=== PATIENT | female | born 1955 | race Caucasian/White ===

== ENCOUNTER 2020-09-15 13:36 | Outpatient (REF) | payer MEDICARE, MEDICAID, SELFPAY ==
--- NOTE | 2020-09-15 14:18 | XR_ITS ---
EXAMINATION: XR KNEE, RIGHT CLINICAL INFORMATION: Right knee pain. COMPARISON: None TECHNIQUE: A standing AP view the right knee was obtained with a lateral view. FINDINGS: There are mild degenerative changes in the medial and patellofemoral compartments with joint space narrowing and marginal osteophytosis. No fracture or other acute abnormality. No joint effusion is seen. Enthesopathic changes are noted in the superior pole of the patella. XR/XR knee RT 2V IMPRESSION: Mild degenerative changes. No acute abnormality.
== END 2020-09-15 13:37 | disposition home or self-care (01) ==
LOC: HO.XRAY 13:36
PROVIDERS: Absent Provider Family Medicine; PCP Family Medicine; Visit Provider Internal Medicine Cardiovascular Disease
DX: M25.561 Pain in right knee (principal)
CPT/HCPCS: 73560; 93005

== ENCOUNTER → 2020-10-04 10:08 | Outpatient (BNVA) | payer MEDICARE, MEDICAID, SELFPAY | PROVIDERS: PCP Family Medicine; Visit Provider Surgery | DX: Z91.89 Other specified personal risk factors, not elsewhere classified (principal); Z80.3 Family history of malignant neoplasm of breast | CPT/HCPCS: 99212 ==

== ENCOUNTER → 2020-10-06 08:49 | Outpatient (BNV) | payer MEDICARE, BC, MEDICAID, SELFPAY | PROVIDERS: PCP Family Medicine; Visit Provider Internal Medicine Medical Oncology | DX: D05.12 Intraductal carcinoma in situ of left breast (principal) | CPT/HCPCS: 99212; 99213; 99214 ==

== ENCOUNTER → 2020-11-28 08:11 | Outpatient (REF) | payer MEDICARE, MEDICAID, SELFPAY ==
--- NOTE | 2020-11-28 08:30 | CA_ITS ---
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 Normal LV systolic function with pseudonormal filling pattern 2. Mildly dilated left atrium 3. Possibly early aortic stenosis 4. Normal RV systolic pressure 5. No pericardial effusion Findings Procedure Information The patient receives contrast. Left Ventricle The left ventricle was not well visualized. Mildly increased left ventricular cavity size. The visually estimated ejection fraction is between 60-65%. Spectral Doppler is indicative of a pseudonormal filling pattern. E/E prime ratio is between 8 and 15 consistent with indeterminate filling pressures. Right Ventricle The right ventricle was not well visualized. Atria The left atrium is mildly dilated. There is no evidence of interatrial shunt. The right atrium was not well visualized. Aortic Valve The aortic valve was not well visualized. There is no aortic valve regurgitation. Mildly increased gradient across aortic valve, leaflets are not well visualized. Early aortic stenosis cannot be ruled out on this study Mitral Valve The mitral valve was not well visualized. There is trace mitral valve regurgitation. There is no mitral valve stenosis. Pulmonic Valve The pulmonic valve was not well visualized. Tricuspid Valve Likely normal tricuspid valve structure and function. There is mild tricuspid valve regurgitation. The right ventricular systolic pressure is normal. The right ventricular systolic pressure is 31 mmHg. Normal right atrial pressure. There is no evidence of pulmonary hypertension. Great Vessels All visible segments of the aorta are normal in size. The pulmonary artery was not well visualized. Venous The inferior vena cava is normal in size and collapses greater than 50% with inspiration. Pericardium/Pleural There is no evidence of pericardial effusion. Prior Study Comparison Changes noted compared to prior study dated: 12/04/2017. Diastolic filling appears to be pseudo normal Measurements 2D Linear Measurements IVSd: 1.03 0.6-0.9/0.6-1.0 cm LVIDd: 5.71 3.9-5.3/4.2-5.9 cm LVIDs: 3.77 2.0-3.6 cm LVPWd: 1.00 0.7-1.1 cm Ao Root: 2.98 2.1-3.5 cm LV Mass: 289.66 67-162/88-224 g LVOT Diam: 1.99 3.0+(-)1.3 cm Mitral Valve MV Pk E: 1.11 MV PK A: 1.24 MV Decel Time: 310.08 E/A: 0.90 E'Lateral: 0.10 E'Medial: 0.10 Decel Harnett: 3.59 Aortic Valve AoV Pk Miguel: 2.18 AoV Mn Miguel: 1.31 AoV VTI: 0.50 AoV Pk Grad: 18.97 Aov Mn Grad: 8.51 LVOT LVOT Pk Miguel: 1.04 LVOT Mn Miguel: 0.70 LVOT VTI: 0.27 LVOT Pk Grad: 4.31 LVOT Mn Grad: 2.33 LVOT Diam: 1.99 LVOT Area: 3.12 Diastolic Function MV Pk E: 1.11 MV Pk A: 1.24 E/A: 0.90 E'Medial: 0.10 E' Laterial: 0.10 Tricuspid Valve TR Pk Miguel: 2.63 TR Pk Grad: 27.62 RA Press: 3.00 RVSP: 31.00 Great Vessels Aorta Ao Root-2D: 2.98 2.0-3.7 cm Ao Arch: 3.68 Updated in Other Vendor System with Status of Final Chad Rios MD electronically signed on 11/28/2020 4:58:38 PM with status of Final
--- NOTE | 2020-11-28 09:30 | CA_ITS ---
Acquisition Time: 2020-11-28 09:54:22 Total Exercise Time: 00:04:29 Test Indications: PAF Medications: see chart Protocol: JOHN Max HR: 134 BPM 86% of Pred: 155 BPM Max BP: 132/072 mmHG Max Work Load: 6.3 METS Exercise stress test using John protocol. Pt was able to exercise for 4 min 29 sec. METS 6.30 and TAPHR up to 86 %. Pt reports SOB no CP. EKG with occ. PAC's. 1rst degree block. Upsloping ST depressions seen inferiorly. Normotensive response to exercise. Test reviewed with Dr. Rios. Referred By: Chad Rios Overread By: Mariangel Soria NP
--- NOTE | 2020-11-28 11:00 | ECG_ITS ---
Hook-up date: 2020-11-28 09:27:00 Duration: 28:23:00 Test Indications: PAF Medications: 70934 QRS complexes * Ventricular ectopics which represent % of total QRS comp. 13 Supraventricular ectopics which represent <1 % of total QRS comp. * Paced QRS complexs which represent % of total QRS comp. VENTRICULAR ECTOPY * Isolated * Bigeminal Cycles * Couplets * Runs * Beats in Runs * Beats LONGEST at * BPM at :: -- * Beats FASTEST at * BPM at :: -- SUPRAVENTRICULAR ECTOPY 1 Isolated 6 Couplets 0 Runs 0 Beats in Runs * Beats LONGEST at * BPM at :: -- * Beats FASTEST at * BPM at :: -- HEART RATES 34 MIN at 08:57:03 2020-11-29 50 AVG 109 MAX at 09:28:21 2020-11-28 LONGEST RR 1.8640 secs at 09:00:37 2020-11-29 S-T LEVELS Channel 1 - 128 mm at 09:27:00 2020-11-28 - 128 mm at 09:27:00 2020-11-28 Channel 2 - 128 mm at 09:27:00 2020-11-28 - 128 mm at 09:27:00 2020-11-28 Channel 3 - 128 mm at 02:84:61 -- - 128 mm at 02:84:61 Basic rhythm Normal sinus rhythm No long pauses Frequent Sinus bradycardia , 83% of total time hr <60 bpm No sustained Atrial fibrillation Patient did not report any symptoms in the diary Referred By: Chad Rios Overread By: CHAD RIOS MD
== END ==
LOC: HO.CARD 08:11
PROVIDERS: Visit Provider Internal Medicine Cardiovascular Disease
DX: I48.0 Paroxysmal atrial fibrillation (principal)
CPT/HCPCS: 93016; 93017; 93018; 93225; 93226; 93306; Q9957

== ENCOUNTER 2020-11-30 09:52 | Outpatient (REF) | payer MEDICARE, MEDICAID, SELFPAY ==
--- NOTE | ~2020-11-30 | MM_ITS ---
EXAMINATION: MM SCREENING DIGITAL BREAST TOMOSYNTHESIS, BILATERAL CLINICAL INFORMATION: Screening. Asymptomatic. Family history breast cancer, sister. Prior history benign left breast MR guided biopsy 10/18/2017 (Benign breast tissue with usual ductal hyperplasia, microcysts, stromal fibrosis, and apocrine metaplasia). The lifetime risk of breast cancer based on the Tyrer-Cuzick Model is 21.4%. COMPARISON: Mammography: 11/18/2019, 10/01/2018, 09/30/2017, MRI breasts 10/18/2017 TECHNIQUE: Digital breast tomosynthesis is performed in both the craniocaudal and mediolateral oblique views along with computer-aided detection (CAD). Synthesized 2D images are generated from the tomosynthesis. Additional bilateral CC views and additional bilateral MLO views are provided for coverage. FINDINGS: The breasts are heterogeneously dense, which may obscure small masses (ACR BI-RADS breast composition Category c). Parenchymal pattern is similar to prior studies. There is no developing density or interval mass or architectural abnormality. Again, there are scattered bilateral punctate and coarse calcifications. Biopsy clip marker again noted left breast posterior 3:00 position. The axilla and skin contours are unremarkable. MM/MM tomosynthesis screening BI IMPRESSION: No mammographic evidence of malignancy. ASSESSMENT: BI-RADS 2: Benign RECOMMENDATION: 1. Routine annual mammography screening. 2. The lifetime risk of breast cancer based on the Tyrer-Cuzick Model is 21%. Additional annual adjunct screening with breast MRI may be of benefit in women with a risk score of 20% or greater. This patient's information was entered into a reminder system with a target due date for their next mammogram.
== END 2020-11-30 09:53 | disposition home or self-care (01) ==
LOC: HO.MAMMO 09:52
PROVIDERS: Visit Provider Family Medicine
DX: Z12.31 Encounter for screening mammogram for malignant neoplasm of breast (principal)
CPT/HCPCS: 77063; 77067

== ENCOUNTER → 2020-12-05 08:22 | Outpatient (REF) | payer MEDICARE, MEDICAID, SELFPAY ==
--- NOTE | ~2020-12-05 | NM_ITS ---
Myocardial perfusion study Indication: Shortness of breath with abnormal stress test evaluate for myocardial ischemia Technique: The patient was brought in for a Lexiscan perfusion study on 12/05/2020. Patient performed low-level exercise and was injected 0.4 mg of Lexiscan intravenously. Within a minute of injection, 45 mCi of sestamibi was given intravenously. Images were obtained using the SPECT gamma camera interlaced with the gating device. Images were obtained in supine position. Resting perfusion study was performed on 12/06/2020. Patient was administered 45 mCi of sestamibi intravenously at rest. Images were then obtained in supine position. Images obtained with and without CT attenuation. Total DLP 153 mGy-cm. Images were processed with the software and compared side to side in short axis, horizontal long axis and vertical long axis views. Findings: The stress perfusion study showed non attenuated images show absent uptake in the inferoapical wall of the LV myocardium and mildly reduced uptake in the distal lateral wall of the LV myocardium. Attenuation corrected images show normal uptake of radiotracer in all segments of LV myocardium. There is suggestion of left ventricle hypertrophy.. The gated study shows normal LV systolic function with calculated LVEF of 64%. LV cavity is normal in size. The gated study shows normal systolic wall thickening and contraction of segments. Resting study shows no change in perfusion pattern compared to stress perfusion study. Gating at rest reveals normal cyst colic wall motion with ejection fraction at 60%. The findings are consistent with normal myocardial perfusion. NM/NM derrick perf SPECT rest & str Impression: 1. Myocardial perfusion imaging study shows normal myocardial perfusion 2. Gated LVEF is 64% 3. Transient ischemic dilatation not present EKG is nondiagnostic for ischemia
--- NOTE | 2020-12-05 08:28 | CA_ITS ---
Acquisition Time: 2020-12-05 08:42:35 Total Exercise Time: 00:02:00 Test Indications: abn ekg Medications: see chart Protocol: LEXISCAN Max HR: 101 BPM 65% of Pred: 155 BPM Max BP: 138/078 mmHG Max Work Load: 1.6 METS Pharmacological stress test with Lexiscan injection, while walking on treadmill 1 MPH 0% incline for 2 min without anginal symptoms, without arrythmia, with normotensive response to injection, with nondiagnostic EKG for ischemia. Nuclear images pending. Test reviewed with Dr Mcguire. Referred By: Chad Rios Overread By: ALMA MCGEE
== END ==
LOC: HO.CARD 08:22
PROVIDERS: PCP Family Medicine; Visit Provider Internal Medicine Cardiovascular Disease
DX: I48.0 Paroxysmal atrial fibrillation (principal); R00.1 Bradycardia, unspecified; R94.31 Abnormal electrocardiogram [ECG] [EKG]
CPT/HCPCS: 78452; 93017; A9500; J0280; J2785

== ENCOUNTER → 2020-12-08 09:58 | Outpatient (BNVA) | payer MEDICARE, MEDICAID, SELFPAY | PROVIDERS: PCP Family Medicine; Visit Provider Internal Medicine Cardiovascular Disease | DX: I48.0 Paroxysmal atrial fibrillation (principal); I49.5 Sick sinus syndrome; Z79.82 Long term (current) use of aspirin; Z79.899 Other long term (current) drug therapy | CPT/HCPCS: 93005; 99212 ==

== ENCOUNTER 2021-03-17 09:42 | Outpatient (REF) | payer MEDICARE, MEDICAID, SELFPAY ==
[2021-03-17 10:36] LABS: MANUAL DIFF FLAG NO
[2021-03-17 11:01] LABS: Basophils Percent Auto 0.4 % (0-2); Eosinophils Absolute Auto 0.1 X10*3/uL (0.0-0.4); Eosinophils Percent Auto 1.7 % (0-4); Hematocrit 41.8 % (37-47); Hemoglobin 13.6 g/dl (12.0-16.0); Imm Gran Abs Auto 0.02 X10*3/uL (0.00-0.03); Imm Gran Pct Auto 0.4 % (0.0-0.4); Lymphocytes Absolute Auto 1.1 X10*3/uL (1.2-4.9); Lymphocytes Percent Auto 24.7 % (20-40); Mean Corpuscular HGB Conc 32.5 g/dl (31.0-35.0); Mean Corpuscular Hemoglobin 28.8 pg (27.0-33.0); Mean Corpuscular Volume 88.6 fL (80-98); Mean Platelet Volume 10.1 fL (9.4-12.3); Monocytes Absolute Auto 0.3 X10*3/uL (0.1-1.2); Monocytes Percent Auto 7.4 % (2-11); Neutrophils Percent Auto 65.4 % (45-73); Platelet Count 233 X10*3/uL (160-400); Red Blood Count 4.72 X10*6/uL (4.20-5.50); Red Cell Distribution Width 14.5 % (11.0-16.0); White Blood Count 4.6 X10*3/uL (4.8-10.8)
[2021-03-17 11:07] LABS: Estimated Average Glucose 105 mg/dL; Hemoglobin A1c % 5.3 %
[2021-03-17 11:15] LABS: Alanine Aminotransferase 23 U/L (0-31); Alkaline Phosphatase 83 U/L (39-117); Anion Gap 11 (12-20); Aspartate Amino Transferase 16 U/L (5-31); Bilirubin Total 0.5 mg/dL (0.0-1.0); Blood Urea Nitrogen 18 mg/dL (9-16); Calcium 9.5 mg/dL (8.4-10.2); Carbon Dioxide 27 mmol/L (22-29); Chloride 105 mmol/L (96-108); Cholesterol 177 mg/dL; Estimated Glomerular Filt Rate 54; Glucose Random 102 mg/dL (60-115); HDL Cholesterol 73 mg/dL; LDL Cholesterol Calculated 93 mg/dl; Potassium 4.3 mmol/L (3.3-5.1); Sodium 139 mmol/L (135-145); Total Protein 6.2 g/dL (6.5-8.0); Triglycerides 58 mg/dL
[2021-03-17 11:36] LABS: TSH reflex Free T4 1.73 uIU/mL (0.32-4.0); Vitamin D 25-OH Total 72.3 ng/mL (>30)
== END 2021-03-17 09:43 | disposition home or self-care (01) ==
LOC: HO.WFDLDS 09:42
PROVIDERS: Absent Provider Internal Medicine Medical Oncology; Visit Provider Family Medicine
DX: Z00.00 Encounter for general adult medical examination without abnormal findings (principal); R73.01 Impaired fasting glucose; E55.9 Vitamin D deficiency, unspecified; Z91.89 Other specified personal risk factors, not elsewhere classified
CPT/HCPCS: 36415; 80053; 80061; 82306; 83036; 84443; 85025

== ENCOUNTER → 2021-03-24 09:50 | Outpatient (REF) | payer MEDICARE, MEDICAID, SELFPAY ==
--- NOTE | 2021-03-24 14:15 | ECG_ITS ---
Hook-up date: 2021-03-24 10:19:00 Duration: 20:41:00 Test Indications: afib Medications: 01608 QRS complexes * Ventricular ectopics which represent % of total QRS comp. 2666 Supraventricular ectopics which represent 3 % of total QRS comp. * Paced QRS complexs which represent % of total QRS comp. VENTRICULAR ECTOPY * Isolated * Bigeminal Cycles * Couplets * Runs * Beats in Runs * Beats LONGEST at * BPM at :: -- * Beats FASTEST at * BPM at :: -- SUPRAVENTRICULAR ECTOPY 2653 Isolated 4 Couplets 1 Runs 5 Beats in Runs 5 Beats LONGEST at 97 BPM at 22:53:27 2021-03-24 5 Beats FASTEST at 97 BPM at 22:53:27 2021-03-24 HEART RATES 42 MIN at 04:49:28 2021-03-25 56 AVG 94 MAX at 19:17:29 2021-03-24 LONGEST RR 1.4560 secs at 10:51:35 2021-03-24 S-T LEVELS Channel 1 - 128 mm at 10:19:00 2021-03-24 - 128 mm at 10:19:00 2021-03-24 Channel 2 - 128 mm at 10:19:00 2021-03-24 - 128 mm at 10:19:00 2021-03-24 Channel 3 - 128 mm at 02:93:81 -- - 128 mm at 02:93:81 Underlying rhythm is sinus; Average ventricular rate 56/min; range 42-94/min; About 72% of the time, rate <60/min; Frequent Premature atrial complexes (4%); mostly isolated; no significant runs; Irregular heartbeat, palpitations in patient diary correlate with sinus rhythm. Referred By: Chad Rios Overread By: INO JEFFERSON
== END ==
LOC: HO.CARD 09:50
PROVIDERS: PCP Family Medicine; Visit Provider Internal Medicine Cardiovascular Disease
DX: I48.0 Paroxysmal atrial fibrillation (principal)
CPT/HCPCS: 93226

== ENCOUNTER → 2021-04-04 09:22 | Outpatient (BNVA) | payer MEDICARE, MEDICAID, SELFPAY | PROVIDERS: PCP Family Medicine; Referring Provider Family Medicine; Visit Provider Surgery | DX: Z87.42 Personal history of other diseases of the female genital tract (principal); Z80.3 Family history of malignant neoplasm of breast; Z80.0 Family history of malignant neoplasm of digestive organs | CPT/HCPCS: 99212 ==

== ENCOUNTER 2021-04-14 15:47 | Emergency (ER) | payer MEDICARE, MEDICAID, SELFPAY ==
[2021-04-14 16:28] VITALS: BP 139/77; PULSE 73; RESP 20; TEMP 36.4; O2SAT 98; BMI 41.8
[2021-04-14 16:39] LABS: MANUAL DIFF FLAG NO
[2021-04-14 16:41] LABS: Basophils Percent Auto 0.3 % (0-2); Eosinophils Absolute Auto 0.1 X10*3/uL (0.0-0.4); Eosinophils Percent Auto 1.6 % (0-4); Hematocrit 45.6 % (37-47); Hemoglobin 14.8 g/dl (12.0-16.0); Imm Gran Abs Auto 0.02 X10*3/uL (0.00-0.03); Imm Gran Pct Auto 0.3 % (0.0-0.4); Lymphocytes Absolute Auto 1.1 X10*3/uL (1.2-4.9); Lymphocytes Percent Auto 16.9 % (20-40); Mean Corpuscular HGB Conc 32.5 g/dl (31.0-35.0); Mean Corpuscular Hemoglobin 28.9 pg (27.0-33.0); Mean Corpuscular Volume 89.1 fL (80-98); Mean Platelet Volume 9.4 fL (9.4-12.3); Monocytes Absolute Auto 0.5 X10*3/uL (0.1-1.2); Monocytes Percent Auto 8.6 % (2-11); Neutrophils Absolute Auto 4.5 X10*3/uL (2.0-8.3); Neutrophils Percent Auto 72.3 % (45-73); Platelet Count 224 X10*3/uL (160-400); Red Blood Count 5.12 X10*6/uL (4.20-5.50); Red Cell Distribution Width 14.5 % (11.0-16.0); White Blood Count 6.3 X10*3/uL (4.8-10.8)
[2021-04-14 17:01] LABS: COVID-19 Test Negative (Negative); IDNOW Serial# 9DD0AD1C
[2021-04-14 17:05] LABS: Alanine Aminotransferase 20 U/L (0-31); Alkaline Phosphatase 98 U/L (39-117); Anion Gap 13 (12-20); Aspartate Amino Transferase 13 U/L (5-31); Bilirubin Total 0.4 mg/dL (0.0-1.0); Blood Urea Nitrogen 19 mg/dL (9-16); Calcium 9.4 mg/dL (8.4-10.2); Carbon Dioxide 27 mmol/L (22-29); Chloride 106 mmol/L (96-108); Creatinine Clr Calc Pharmacy 53.1; Estimated Glomerular Filt Rate 36; Glucose Random 105 mg/dL (60-115); Potassium 3.9 mmol/L (3.3-5.1); Sodium 142 mmol/L (135-145); Total Protein 6.2 g/dL (6.5-8.0)
[2021-04-14 17:46] VITALS: BP 152/87; PULSE 87; RESP 16; O2SAT 97
--- NOTE | 2021-04-14 19:36 | ED.URI ---
HPI - URI/Sore Throat General Chief Complaint: Upper Respiratory Symptoms Stated Complaint: headache, sore throat Time Seen by Provider: 04/14/21 18:54 Source: patient Mode of arrival: ambulatory Limitations: no limitations History of Present Illness HPI Narrative: 65-year-old female with a past medical history of AFib on Rivaroxaban and flecainide, hypertension, bradycardia, sick sinus syndrome and hypercholesterolemia presenting to the ED with a few days of intermittent headaches, nasal congestion/runny nose, sore throat and a cough. She reports that she came here only for a COVID swab and a rapid strep. She reports she had a rapid negative COVID on although her daughter is a nurse in [place] in the ICU and told her that she may had had a COVID swab to early when her symptoms started therefore she instructed her to get a repeat swab. Patient reports she does not want any blood work any x-rays any imaging at all that she was only here for COVID swab and a rapid strep. She denies any fevers, chills, dizziness, chest pain, shortness of breath, dyspnea on exertion, orthopnea, palpitations, abdominal pain, nausea/vomiting/diarrhea/constipation, dysuria, focal or general weakness, recent travel or sick contacts or any other symptoms complaints or concerns at this time. MD elicited complaint: cough, sore throat, rhinorrhea and nasal congestion Pertinent past history: other (See above) Onset (ago): day(s) (A few days worse today) Consistency: constant and progressively worsening Severity: moderate Description of mucous: clear, watery and yellow Able to tolerate fluids by mouth: Yes Exacerbating factors: nothing Relieving factors: nothing Associated symptoms: denies other symptoms Treatments prior to arrival: none Related Data Previous Rx's Medication Instructions Recorded diltiazem HCl 30 mg tablet 30 mg PO BID 90 Days #180 tab 01/24/21 (Cardizem) flecainide 150 mg tablet 150 mg PO Q12H #180 cap 01/27/21 rivaroxaban 20 mg tablet (Xarelto) 20 mg PO DAILY #30 tab 02/20/21 bupropion HCl 75 mg tablet 75 mg PO BID 30 Days #60 tab 04/03/21 amoxicillin 875 mg-potassium 1 tab PO BID 10 Days #20 tab 04/14/21 clavulanate 125 mg tablet (Augmentin) codeine 10 mg-guaifenesin 100 mg/5 5 ml PO Q6H PRN #120 ml 04/14/21 mL oral liquid (Guaifenesin AC) Allergies Allergy/AdvReac Type Severity Reaction Status Date / Time meperidine [From DEMEROL] Allergy Unknown RASH Verified 03/23/21 08:58 Review of Systems Review of Systems: Constitutional : No Weight loss, No Fever, No Chills, No Night Sweats, No Fatigue, No Malaise ENT/Mouth : Positive sore throat/ear pain/nasal congestion/rhinorrhea, No Hearing loss, No Hoarseness, No Swallowing Difficulty Eyes: No Eye Pain, No Swelling, No Redness, No Foreign Body, No Discharge, No VisionChanges Cardiovascular : No SOB, no Dyspnea on Exertion, No Orthopnea, NoEdema, No extremity swelling, No Palpitations Respiratory : Positive cough, No Sputum, No Wheezing, No Dyspnea Gastrointestinal : No Nausea, No Vomiting, No Diarrhea, No abdominal Pain, NoHematochezia, No Melena Genitourinary : No irregular bleeding, No Dysuria, No Urinary Frequency, No Hematuria,No Urinary Incontinence, No Urgency, No Flank Pain, No Urinary Flow Changes, NoHesitancy Musculoskeletal : No joint pain, No Myalgias, No Joint Swelling Skin : No Skin Lesions, No rash Neuro : No Weakness, No Numbness, No Paresthesias, No Loss of Consciousness, NoDizziness, No Headache Psych : No Anxiety/Panic, No Depression, No SI/HI/AH/VH Heme/Lymph: No Bruising, No Bleeding,No Lymphadenopathy Endocrine : No Polyuria, No Polydipsia, No Temperature Intolerance Yes all other systems are reviewed and are negative COUNTS INCLUDE 234 BEDS AT THE [facility] Past Medical History Attestation statement: The following information was validated with the patient. Medical History Afib At high risk for breast cancer Cholecystectomy planned Family history of breast cancer Sick sinus syndrome Surgical History H/O section History of breast biopsy History of surgery Family History Family History Sister Colon cancer Breast cancer Heart failure Mother Colon cancer HTN (hypertension) Father Sister No problems noted. Sister No problems noted. Brother No problems noted. Brother No problems noted. Brother No problems noted. Daughter No problems noted. Social History Social History Housing: House Alcohol intake: former Patient Tobacco Use Status: Former Tobacco user Advance Directives: No Advance Directives Information Provided: Yes Current occupational status: retired Physical Exam Vital Signs: Vital Signs: Last Vital Signs Temp 97.5 F 04/14/21 16:28 Pulse 87 04/14/21 17:46 Resp 16 04/14/21 17:46 BP 152/87 H 04/14/21 17:46 Pulse Ox 97 04/14/21 17:46 Body Mass Index 41.8 vital signs have been reviewed as normal and appeared to be correct. Blood pressure normal. Heart rate normal. Respiration rate normal. Temperature normal. Oxygen saturation normal. Appearance: Alert. Oriented X3. No acute distress. Head: Normal external exam. Normocephalic. Atraumatic. Eyes: PERRLA. EOMI. Conjunctiva and sclera normal. Eyelids normal. ENT: EAC normal. TM's Normal. Pharynx normal. Uvula midline. Moist mucous membranes. No trismus noted. No drooling noted. No muffled voice noted. Neck: Normal inspection. Neck supple. FROM. No adenopathy. Thyroid Normal. No meningeal signs. No neck mass noted. CVS: Normal heart rate and rhythm. Heart sound normal. Pulses normal throughout. No murmurs/rales/gallops. Respiratory: No respiratory distress. Painless inspiration. Breath sounds normal. No wheezes/rales/rhonchi noted. Chest nontender. No accessory muscle usage noted or decreased air movement noted. Abdomen: Soft and nontender. Bowel sounds normal in all 4 quadrants. No distention noted. No organomegaly noted. No visible injury noted. Back: No CVA tenderness. Full range of motion noted. No rashes/lesion/induration/fluctuance or signs of infection noted. Skin: Skin warm and dry. Normal skin color. Normal skin turgor. No rashes/lesions/lacerations noted. Extremities: No lower extremity edema. No calf tenderness is noted. exhibit normal range of motion. Extremities nontender. Neuro: Oriented X 3. No motor deficit. No sensory deficit. Reflexes normal. Normal steady gait. No focal neuro deficits noted. Vascular: + radial pulses/+ 2 distal pedal pulses/+2 dorsalis pedis b/l. Normal cap refill. No cyanosis noted to upper extremity nails and lower extremity toes nails. Course Course Course Narrative: 19:20pm - 65-year-old female with a past medical history of AFib on Rivaroxaban and flecainide, hypertension, bradycardia, sick sinus syndrome and hypercholesterolemia presenting to the ED with a few days of intermittent headaches, nasal congestion/runny nose, sore throat and a cough. She reports that she came here only for a COVID swab and a rapid strep. She reports she had a rapid negative COVID on although her daughter is a nurse in [place] in the ICU and told her that she may had had a COVID swab to early when her symptoms started therefore she instructed her to get a repeat swab. Patient reports she does not want any blood work any x-rays any imaging at all that she was only here for COVID swab and a rapid strep. - labs obtained despite patient not requesting labs and she has an elevated creatinine and BUN at 1.47/19 this is elevated when compared to prior. Rapid COVID negative. - I ordered the patient a chest x-ray and an EKG although she refused both EKG and chest x-ray reported that she does not want any further imaging or workup that she only wants the COVID swab and a rapid strep and she wants to be sent home. I even offered her a L of IV fluids for her elevated BUN and creatinine although she also refused. - therefore I performed a rapid swab for strep myself on the patient and a respiratory panel and I will discharge her with antibiotics and symptomatic treatment I will call her with her results if they are positive. Patient understands to self isolate and to return if any new or worsening symptoms to follow up with primary care provider. Patient understands agrees with this plan. MDM - URI/Sore Throat Medical Records Attestation: I reviewed the patient's medical records. Lab Data Attestation: I reviewed the patient's lab results. Result diagrams: 04/14/21 16:34 04/14/21 16:34 Labs: Lab Results 04/14/21 04/14/21 04/14/21 Range/Units 16:34 16:34 16:34 WBC 6.3 (4.8-10.8) X10*3/uL RBC 5.12 (4.20-5.50) X10*6/uL Hgb 14.8 (12.0-16.0) g/dl Hct 45.6 (37-47) % MCV 89.1 (80-98) fL MCH 28.9 (27.0-33.0) pg MCHC 32.5 (31.0-35.0) g/dl RDW 14.5 (11.0-16.0) % Plt Count 224 (160-400) X10*3/uL MPV 9.4 (9.4-12.3) fL Immature Gran % (Auto) 0.3 (0.0-0.4) % Neut % (Auto) 72.3 (45-73) % Lymph % (Auto) 16.9 L (20-40) % [place] % (Auto) 8.6 (2-11) % Eos % (Auto) 1.6 (0-4) % Baso % (Auto) 0.3 (0-2) % Lymph # (Auto) 1.1 L (1.2-4.9) X10*3/uL [place] # (Auto) 0.5 (0.1-1.2) X10*3/uL Eos # (Auto) 0.1 (0.0-0.4) X10*3/uL Baso # (Auto) 0.0 (0.0-0.2) X10*3/uL Abs Immat Gran (auto) 0.02 (0.00-0.03) X10*3/uL Absolute Neuts (auto) 4.5 (2.0-8.3) X10*3/uL Absolute Nucleated RBC 0.000 (0.0-0.012) X10*3/uL Nucleated RBC % (auto) 0.0 (0.0-0.2) /100WBC Sodium 142 (135-145) mmol/L Potassium 3.9 (3.3-5.1) mmol/L Chloride 106 (96-108) mmol/L Carbon Dioxide 27 (22-29) mmol/L Anion Gap 13 (12-20) BUN 19 H (9-16) mg/dL Creatinine 1.47 H (0.5-1.4) mg/dL Estim Creat Clear Calc 53.1 Estimated GFR 36 Random Glucose 105 (60-115) mg/dL Calcium 9.4 (8.4-10.2) mg/dL Total Bilirubin 0.4 (0.0-1.0) mg/dL AST 13 (5-31) U/L ALT 20 (0-31) U/L Alkaline Phosphatase 98 (39-117) U/L Total Protein 6.2 L (6.5-8.0) g/dL Albumin 4.0 (3.5-5.0) g/dL COVID-19 ([place]) Negative (Negative) COVID-19 Clin Com See Note Discharge Plan Discharge Clinical Impression: Acute upper respiratory infection, JOSE LUIS (acute kidney injury) Patient Disposition: Home, Self-Care Instructions: Acute Kidney Injury (DC), Upper Respiratory Infection (ED) Additional Instructions: Based on your symptoms and history we have sent a COVID-19. Although your RESULT IS PENDING at this time. RESULTS should return within 2-4 hours. At this time you will be contacted with either NEGATIVE OR POSITIVE results. -Please wait until we contact you for your results. At this time you will be okay for discharge. Please plan for self quarantine for up to 14 days. Do not expose yourself to others. You may not go to work. If testing does come back negative you may return to activities as long as you are no longer having any symptoms for at least 3 days. Please continue to follow cold instructions and wash your hands frequently. You may take Tylenol as directed on the bottle for pain or fever. CDC Guidelines for home isolation: - Stay away from others - WEAR A MASK if you are sick AND STAY HOME - Cover your mouth and nose with a tissue when you cough or sneeze. Dispose of tissues in a lined trash can and wash your hands immediately with soap and water for at least 20 seconds. If soap and water are not available, clean hands with alcohol-based hand money laundering investigator that contains at least 60% alcohol. - Clean your hands often with soap and water for at least 20 seconds - Avoid touching your eyes, nose and mouth with unwashed hands - Do not share dishes, drinking glasses, cups, eating utensils, towels, or bedding with other people in your home. After using these items, wash them thoroughly with soap and water or put in the columnist. - Clean high-touch surfaces in your isolation area ( sick room and bathroom) every day; let a caregiver clean and disinfect high-touch surfaces in other areas of the home. Clean the area or item with soap and water or another detergent if it is dirty. Then, use a household disinfectant. - Limit contact with pets and animals: If you must care for a pet, wash your hands before and after interacting with them). Prescriptions: New codeine-guaifenesin [Guaifenesin AC] 10-100 mg/5 mL liquid 5 ml PO Q6H PRN (Reason: cold symptoms) Qty: 120 RF: 0 amoxicillin-pot clavulanate [Augmentin] 875-125 mg tablet 1 tab PO BID 10 Days Qty: 20 RF: 0 No Action diltiazem HCl [Cardizem] 30 mg tablet 30 mg PO BID 90 Days Qty: 180 RF: 1 flecainide 150 mg tablet 150 mg PO Q12H Qty: 180 RF: 1 Xarelto 20 mg tablet 20 mg PO DAILY Qty: 30 RF: 2 bupropion HCl 75 mg tablet 75 mg PO BID 30 Days Qty: 60 RF: 2 Referrals: He Mei MD [Primary Care Provider] - 2 days Print Language: Urdu
[2021-04-14 19:45] LABS: B Type Natriuretic Peptide 54 pg/mL (<100)
[2021-04-14 20:13] LABS: Strep A Nucleic Acid Negative (Negative)
[2021-04-14 20:19] LABS: Adenovirus PCR Not Detected (Not Detect.); Bordetella parapertussis PCR Not Detected (Not Detect.); Bordetella pertussis PCR Not Detected (Not Detect.); Chlamydia pneumoniae PCR Not Detected (Not Detect.); Coronavirus 229E PCR Not Detected (Not Detect.); Coronavirus HKU1 PCR Not Detected (Not Detect.); Coronavirus NL63 PCR Not Detected (Not Detect.); Human metapneumovirus PCR Not Detected (Not Detect.); Influenza A PCR Not Detected (Not Detect.); Influenza B PCR Not Detected (Not Detect.); Mycoplasma pneumoniae PCR Not Detected (Not Detect.); Parainfluenza 1 PCR Not Detected (Not Detect.); Parainfluenza 2 PCR Not Detected (Not Detect.); Parainfluenza 3 PCR Not Detected (Not Detect.); Parainfluenza 4 PCR Not Detected (Not Detect.); RSV PCR Not Detected (Not Detect.); Rhino/Enterovirus PCR Not Detected (Not Detect.); SARS-CoV-2 PCR Not Detected (Not Detect.)
[2021-04-15 09:49] LABS: Coronavirus OC43 PCR Detected (Not Detect.)
== END 2021-04-14 20:05 | disposition home or self-care (01) ==
PROVIDERS: Physician Assistant Medical; Emergency Provider Emergency Medicine Emergency Medical Services; PCP Family Medicine
DX: J06.9 Acute upper respiratory infection, unspecified (principal); N17.9 Acute kidney failure, unspecified; Z20.822 Contact with and (suspected) exposure to COVID-19; R51.9 Headache, unspecified; I48.91 Unspecified atrial fibrillation; I10 Essential (primary) hypertension; E78.00 Pure hypercholesterolemia, unspecified; J02.9 Acute pharyngitis, unspecified
CPT/HCPCS: 36415; 80053; 83880; 85025; 87633; 87635; 87651; 99283; 99284

== ENCOUNTER 2021-07-12 09:23 | Outpatient (REF) | payer MEDICARE, MEDICAID, SELFPAY ==
[2021-07-14 15:01] LABS: HPV mRNA E6/E7 rflx Not Detected (Not Detected)
== END 2021-07-12 09:24 | disposition home or self-care (01) ==
LOC: HO.LAB 09:23
PROVIDERS: PCP Family Medicine; Visit Provider Advanced Practice Midwife
DX: Z01.419 Encounter for gynecological examination (general) (routine) without abnormal findings (principal); Z11.51 Encounter for screening for human papillomavirus (HPV); N64.9 Disorder of breast, unspecified; D22.9 Melanocytic nevi, unspecified
CPT/HCPCS: 87624; 88142; 99212

== ENCOUNTER → 2021-07-17 13:30 | Outpatient (BNVA) | payer MEDICARE, MEDICAID, SELFPAY | PROVIDERS: PCP Family Medicine; Referring Provider Family Medicine; Visit Provider Internal Medicine Cardiovascular Disease | DX: I49.5 Sick sinus syndrome (principal); I48.91 Unspecified atrial fibrillation | CPT/HCPCS: 93005; 99212 ==

== ENCOUNTER 2021-07-19 10:36 | Outpatient (REF) | payer MEDICARE, MEDICAID, SELFPAY ==
[2021-07-19 14:16] LABS: Anion Gap 11 (12-20); Blood Urea Nitrogen 16 mg/dL (9-16); Carbon Dioxide 28 mmol/L (22-29); Chloride 104 mmol/L (96-108); Cholesterol 251 mg/dL; Estimated Glomerular Filt Rate 55; Glucose Random 95 mg/dL (60-115); HDL Cholesterol 66 mg/dL; LDL Cholesterol Calculated 172 mg/dl; Potassium 4.5 mmol/L (3.3-5.1); Sodium 138 mmol/L (135-145); Triglycerides 65 mg/dL
== END 2021-07-19 10:37 | disposition home or self-care (01) ==
LOC: HO.10HDL 10:36
PROVIDERS: Absent Provider Family Medicine; Visit Provider Internal Medicine Cardiovascular Disease
DX: Z00.00 Encounter for general adult medical examination without abnormal findings (principal); I48.91 Unspecified atrial fibrillation
CPT/HCPCS: 36415; 80048; 80061

== ENCOUNTER 2021-07-26 12:06 | Day surgery (SDC) | payer MEDICARE, MEDICAID, SELFPAY ==
--- NOTE | 2021-07-25 13:40 | HO.ANESPROP2 ---
Documented by User: Vanessa Montgomery NP 07/25/21 13:47 HPI - Anesthesia Eval Consult details Narrative: 65yo F for Cardioversion Xarelto for afib PMFSH Active Problems Active Problems: All Active Problems (Updated 04/15/21 @ 00:01 by Frankie Segovia) Afib (Acute) Right knee pain (Acute) Depression with anxiety (Acute) Essential hypertension (Acute) Paroxysmal A-fib (Acute) Bradycardia (Acute) Vitamin D deficiency (Acute) Elevated fasting blood sugar (Acute) Vitamin D deficiency (Acute) Laboratory examination ordered as part of a routine general medical examination (Acute) Pure hypercholesterolemia (Acute) Breast cancer screening by mammogram (Acute) Screening for colon cancer (Acute) Screening for osteoporosis (Acute) Immunization counseling (Acute) Adult general medical exam (Acute) Atypical ductal hyperplasia of breast (Acute) Sick sinus syndrome (Acute) At high risk for breast cancer (Acute) Family history of breast cancer (Acute) Past Medical History Medical History Afib At high risk for breast cancer Cholecystectomy planned Family history of breast cancer Sick sinus syndrome Family History Family History Sister Colon cancer Breast cancer Heart failure Mother Colon cancer HTN (hypertension) Father Sister No problems noted. Sister No problems noted. Brother No problems noted. Brother No problems noted. Brother No problems noted. Daughter No problems noted. Surgical History Surgical History H/O section History of breast biopsy History of surgery Social History Social History Housing: House Alcohol intake: former Patient Tobacco Use Status: Former Tobacco user Use of substances other than those prescribed or required for medical reasons: No Are you DNR?: Yes Advance Directives: No Advance Directives Information Provided: Yes Current occupational status: retired Meds Allergies Allergy/AdvReac Type Severity Reaction Status Date / Time meperidine [From DEMEROL] Allergy Intermediate RASH Verified 07/26/21 12:44 Exam Exam Date and Time: July 25, 2021 1340 Pertinent Lab Results Pertinent Lab Results: Laboratory Tests 07/19/21 10:44 Sodium 138 Potassium 4.5 Chloride 104 Carbon Dioxide 28 BUN 16 Creatinine 1.01 Laboratory Tests 04/14/21 16:34 WBC 6.3 Hgb 14.8 Hct 45.6 Plt Count 224 Narrative Narrative: EKG 07/2021 atrial fibrillation with right axis deviation with low-voltage QRS with nonspecific ST T wave changes Assessment and Plan Assessment Anesthesia Assessment: Chart Reviewed Documented by User: Pina Brown MD 07/26/21 13:15 PMF Past Medical History Medical History Afib At high risk for breast cancer Cholecystectomy planned Family history of breast cancer Sick sinus syndrome Family History Family History Sister Colon cancer Breast cancer Heart failure Mother Colon cancer HTN (hypertension) Father Sister No problems noted. Sister No problems noted. Brother No problems noted. Brother No problems noted. Brother No problems noted. Daughter No problems noted. Family history of problems with anesthesia: No Surgical History Surgical History H/O section History of breast biopsy History of surgery History of Problems with Anesthesia: No Social History Social History Housing: House Alcohol intake: former Patient Tobacco Use Status: Former Tobacco user Use of substances other than those prescribed or required for medical reasons: No Are you DNR?: Yes Advance Directives: No Advance Directives Information Provided: Yes Current occupational status: retired Meds Allergies Allergy/AdvReac Type Severity Reaction Status Date / Time meperidine [From DEMEROL] Allergy Intermediate RASH Verified 07/26/21 12:44 Exam Airway Mallampati Class: III TM Dist: >3cm Neck ROM: Full Partial: Upper Heart: irreg Lungs: cta Assessment and Plan Assessment Anesthesia Assessment: Anesthesia Plan Discussed and Chart Reviewed Final Anesthetic Review Family History of Problems with Anesthesia: No History of Problems with Anesthesia: No NPO: Yes ASA Class: III Final Preanesthetic Review: No Changes in Pt Med Stat, Meds/Allgs Chart Reviewed and Consent Obtained/Reviewed Patient Risk: Intermediate Procedure Risk: Intermediate Anesthetic Plan Anesthetic Plan: MAC: Disposition: Standard PACU
[2021-07-26 13:04] VITALS: BP 120/82; PULSE 106; RESP 18; TEMP 36.4; O2SAT 98; BMI 43.3
[2021-07-26] MEDS: Lactated Ringers 1,000 ML 50 ML IVCONT (13:27)
--- NOTE | 2021-07-26 13:49 | MHC.SHP ---
Pre-Procedural Eval Section A Date of Service: 07/26/21 The patient is an INPATIENT: No Changes since office visit: Yes Patient answered all questions; No Cold of Flu in the past 2 weeks, No New Medical Problems and No Changes in Medication The History & Physical has been completed within 30 days and I have reviewed it.: Yes Section B Chief Complaint: A-Fib Allergies: Allergies Allergy/AdvReac Type Severity Reaction Status Date / Time meperidine [From DEMEROL] Allergy Intermediate RASH Verified 07/26/21 12:44 Plan I have reviewed the history and physical and performed a pertinent physical examination on my patient. No changes have occurred unless specified.
--- NOTE | 2021-07-26 13:56 | ECG_ITS ---
Test Reason : s/p cardioversion Blood Pressure : / mmHG Vent. Rate : 060 BPM Atrial Rate : 060 BPM P-R Int : 276 ms QRS Dur : 122 ms QT Int : 422 ms P-R-T Axes : 064 096 044 degrees QTc Int : 422 ms Sinus rhythm with 1st degree A-V block Rightward axis Non-specific intra-ventricular conduction delay Nonspecific T wave abnormality Abnormal ECG When compared with ECG of 03-FEB-2014 13:16, No significant change was found Referred By: Chad Rios Electronically Signed By:DAMIEN GIRARD MD
[2021-07-26 14:00] VITALS: BP 133/75; PULSE 68; RESP 17; TEMP 37.2; O2SAT 97
--- NOTE | 2021-07-26 14:03 | HO.CARDIVERS ---
Cardioversion Procedure Note Cardioversion Date of Procedure: 07/26/2021 Ordering Provider: Myself Performing Provider: Myself Indication for Procedure: Symptomatic persistent atrial fibrillation Pre-Op Diagnosis: Same Post-Op Diagnosis: Sinus rhythm Performed with Transesophageal Echo: No History: See my office note Consent: Verbal and Written consent was obtained from the patient before starting the procedure and confirming oral anticoagulation use The patient was made aware of the risk of synchronized cardioversion including risk, benefits, alternatives and 2nd opinion to procedure Procedure: After consent obtained, cardioversion pads were attached AP configuration and the patient was sedated by the anesthesia team. Once adequate sedation achieved, patient was delivered 200 joules of biphasic synchronized energy in AP configuration Complications: None Impression: Successful conversion to sinus rhythm Recommendations: 1. Continue full oral anticoagulation 2. Twelve lead EKG 3. Continue current antiarrhythmic drug therapy 4. Follow up in the clinic after Holter monitor
[2021-07-26 14:05] VITALS: BP 124/70; PULSE 63; RESP 17; O2SAT 98
[2021-07-26 14:10] VITALS: BP 126/78; PULSE 67; RESP 17; O2SAT 98
[2021-07-26 14:15] VITALS: BP 134/76; PULSE 67; RESP 18; O2SAT 98
[2021-07-26 14:30] VITALS: BP 134/77; PULSE 57; RESP 18; TEMP 36.7; O2SAT 97
== END 2021-07-26 14:50 | disposition home or self-care (01) ==
PROVIDERS: PCP Family Medicine; Visit Provider Internal Medicine Cardiovascular Disease
PROC: 5A2204Z Restoration of Cardiac Rhythm, Single (ICD-10-PCS; principal; 2021-07-26 14:00)
DX: I48.19 Other persistent atrial fibrillation (principal); Z79.01 Long term (current) use of anticoagulants; I49.5 Sick sinus syndrome; Z88.8 Allergy status to other drugs, medicaments and biological substances; Z79.899 Other long term (current) drug therapy; Z87.891 Personal history of nicotine dependence
CPT/HCPCS: 92960; 93005

== ENCOUNTER → 2021-08-14 10:52 | Outpatient (REF) | payer MEDICARE, MEDICAID, SELFPAY ==
--- NOTE | 2021-08-14 10:56 | HM_ITS ---
Conclusion: 1. Patient was monitored for total period of 3 days. 2. Baseline was normal sinus rhythm with average heart of 61 beats per minute 3. No profound bradycardia or pauses noted 4. Total of 81 supraventricular ectopics noted accounting for 0.03% total burden of card very rare PACs 5. No sustained atrial fibrillation 6. Patient reported to events 1 of them correlated with isolated PAC. MTDD
== END ==
LOC: HO.CARD 10:52
PROVIDERS: Visit Provider Internal Medicine Cardiovascular Disease
DX: I48.0 Paroxysmal atrial fibrillation (principal)
CPT/HCPCS: 93242

== ENCOUNTER → 2021-08-25 09:30 | Outpatient (BNVA) | payer MEDICARE, MEDICAID, SELFPAY | PROVIDERS: PCP Family Medicine; Referring Provider Family Medicine; Visit Provider Internal Medicine Cardiovascular Disease | DX: I48.0 Paroxysmal atrial fibrillation (principal); I49.5 Sick sinus syndrome | CPT/HCPCS: 93005; 99212 ==

== ENCOUNTER 2021-10-03 11:59 | Outpatient (REF) | payer MEDICARE, SELFPAY ==
--- NOTE | ~2021-10-03 | XR_ITS ---
EXAMINATION: XR SHOULDER , RIGHT CLINICAL INFORMATION: Pain COMPARISON: None available at the time of this dictation. TECHNIQUE: AP external rotation, Grashey, scapular Y, and axillary views of the shoulder. FINDINGS: BONES: There is no fracture or dislocation, no osteolytic or osteoblastic lesion. JOINTS: Glenohumeral joint is properly positioned. There is mild degenerative osteoarthritis of the acromioclavicular joint. SOFT TISSUE AND INCLUDED LUNG: Normal. XR/XR shoulder RT min 2V IMPRESSION: No fracture or dislocation. DJD AC joint.
== END 2021-10-03 12:00 | disposition home or self-care (01) ==
LOC: HO.XRAY 11:59
PROVIDERS: PCP Family Medicine; Visit Provider Internal Medicine Medical Oncology
DX: M25.511 Pain in right shoulder (principal)
CPT/HCPCS: 73030

== ENCOUNTER 2021-10-18 15:46 | Outpatient (REF) | payer MEDICARE, SELFPAY ==
--- NOTE | ~2021-10-18 | XR_ITS ---
EXAMINATION: XR ELBOW, RIGHT. XR FOREARM, RIGHT. XR HAND/WRIST, RIGHT. CLINICAL INFORMATION: Right arm pain COMPARISON: None TECHNIQUE: 3 views of the right elbow. AP and lateral views of the right forearm. 3 views of the right hand/wrist. FINDINGS: Right elbow: Normal alignment. No fracture. No joint effusion. Right forearm: Normal alignment. No fracture. Right hand/wrist: Normal alignment with no fracture. Degenerative changes of the distal interphalangeal joints with osteophytes, small peripheral cysts or chronic erosions of the 2nd DIP joint and a prominent central subchondral cyst of the 3rd distal phalanx. XR/XR elbow RT 2V IMPRESSION: No acute osseous abnormality. Degenerative findings as described.
--- NOTE | ~2021-10-18 | XR_ITS ---
EXAMINATION: XR ELBOW, RIGHT. XR FOREARM, RIGHT. XR HAND/WRIST, RIGHT. CLINICAL INFORMATION: Right arm pain COMPARISON: None TECHNIQUE: 3 views of the right elbow. AP and lateral views of the right forearm. 3 views of the right hand/wrist. FINDINGS: Right elbow: Normal alignment. No fracture. No joint effusion. Right forearm: Normal alignment. No fracture. Right hand/wrist: Normal alignment with no fracture. Degenerative changes of the distal interphalangeal joints with osteophytes, small peripheral cysts or chronic erosions of the 2nd DIP joint and a prominent central subchondral cyst of the 3rd distal phalanx. XR/XR hand wrist RT IMPRESSION: No acute osseous abnormality. Degenerative findings as described.
--- NOTE | ~2021-10-18 | XR_ITS ---
EXAMINATION: XR ELBOW, RIGHT. XR FOREARM, RIGHT. XR HAND/WRIST, RIGHT. CLINICAL INFORMATION: Right arm pain COMPARISON: None TECHNIQUE: 3 views of the right elbow. AP and lateral views of the right forearm. 3 views of the right hand/wrist. FINDINGS: Right elbow: Normal alignment. No fracture. No joint effusion. Right forearm: Normal alignment. No fracture. Right hand/wrist: Normal alignment with no fracture. Degenerative changes of the distal interphalangeal joints with osteophytes, small peripheral cysts or chronic erosions of the 2nd DIP joint and a prominent central subchondral cyst of the 3rd distal phalanx. XR/XR forearm RT 2V IMPRESSION: No acute osseous abnormality. Degenerative findings as described.
== END 2021-10-18 15:47 | disposition home or self-care (01) ==
LOC: HO.HMGCX 15:46
PROVIDERS: PCP Family Medicine; Visit Provider Family Medicine
DX: M79.641 Pain in right hand (principal); M79.601 Pain in right arm
CPT/HCPCS: 73070; 73090; 73110; 73130

== ENCOUNTER → 2021-11-07 10:46 | Outpatient (BNVA) | payer MEDICARE, SELFPAY | PROVIDERS: PCP Family Medicine; Referring Provider Family Medicine; Visit Provider Nurse Practitioner Family | DX: G47.30 Sleep apnea, unspecified (principal); I48.0 Paroxysmal atrial fibrillation | CPT/HCPCS: 99202 ==

== ENCOUNTER 2021-12-06 08:54 | Outpatient (REF) | payer MEDICARE, SELFPAY ==
[2021-12-08 12:56] LABS: TS Negative Control Passed; TS Panel A 2; TS Panel B 0; TS Positive Control Passed; TSpotTB Negative (Negative)
== END 2021-12-06 08:55 | disposition home or self-care (01) ==
LOC: HO.WFDLDS 08:54
PROVIDERS: Visit Provider Family Medicine
DX: Z11.1 Encounter for screening for respiratory tuberculosis (principal)
CPT/HCPCS: 36415; 86481

== ENCOUNTER → 2022-01-12 13:26 | Outpatient (BNVA) | payer MEDICARE, SELFPAY | PROVIDERS: PCP Family Medicine; Referring Provider Family Medicine; Visit Provider Internal Medicine Cardiovascular Disease | DX: R94.31 Abnormal electrocardiogram [ECG] [EKG] (principal) | CPT/HCPCS: 93005 ==

== ENCOUNTER → 2022-02-20 10:46 | Outpatient (BNVA) | payer MEDICARE, SELFPAY | PROVIDERS: PCP Family Medicine; Referring Provider Family Medicine; Visit Provider Surgery | DX: N60.91 Unspecified benign mammary dysplasia of right breast (principal); Z80.3 Family history of malignant neoplasm of breast | CPT/HCPCS: 99212 ==

== ENCOUNTER → 2022-02-22 13:21 | Outpatient (BNVA) | payer MEDICARE, SELFPAY | PROVIDERS: PCP Family Medicine; Referring Provider Family Medicine; Visit Provider Nurse Practitioner Family | DX: Z01.818 Encounter for other preprocedural examination (principal); I48.19 Other persistent atrial fibrillation; I10 Essential (primary) hypertension; I49.5 Sick sinus syndrome; Z79.01 Long term (current) use of anticoagulants; Z79.899 Other long term (current) drug therapy | CPT/HCPCS: 93005; 99212; Q3014 ==

== ENCOUNTER 2022-02-23 10:33 | Outpatient (REF) | payer MEDICARE, SELFPAY ==
--- NOTE | ~2022-02-23 | MM_ITS ---
EXAMINATION: MM SCREENING DIGITAL BREAST TOMOSYNTHESIS, BILATERAL CLINICAL INFORMATION: Screening. Asymptomatic. Family history breast cancer, sister. The lifetime risk of breast cancer based on the Tyrer-Cuzick Model is 14%. COMPARISON: Mammography: 11/30/2020, 11/18/2019, 10/01/2018 TECHNIQUE: Digital breast tomosynthesis is performed in both the craniocaudal and mediolateral oblique views along with computer-aided detection (CAD). Synthesized 2D images are generated from the tomosynthesis. Additional bilateral CC and additional left MLO view are provided. FINDINGS: The breasts are heterogeneously dense, which may obscure small masses (ACR BI-RADS breast composition Category c). There are no significant masses, abnormal calcifications, or other abnormalities. There is no developing density or interval architectural abnormality. Scattered bilateral punctate and coarse calcifications are again seen. There is a biopsy clip marker again noted posterior 3:00 left breast. No significant changes. The axilla and skin contours are unremarkable. MM/MM tomosynthesis screening BI IMPRESSION: No mammographic evidence of malignancy. ASSESSMENT: BI-RADS 2: Benign RECOMMENDATION: Routine annual mammography screening. This patient's information was entered into a reminder system with a target due date for their next mammogram.
== END 2022-02-23 10:34 | disposition home or self-care (01) ==
LOC: HO.MAMMO 10:33
PROVIDERS: PCP Family Medicine; Visit Provider Surgery
DX: Z12.31 Encounter for screening mammogram for malignant neoplasm of breast (principal)
CPT/HCPCS: 77063; 77067

== ENCOUNTER → 2022-02-26 11:16 | Outpatient (REF) | payer MEDICARE, SELFPAY ==
--- NOTE | 2022-02-26 11:18 | HM_ITS ---
Conclusion: 1. Patient was monitored for total period of 2 days and 23 hours 2. Baseline rhythm was atrial fibrillation with average heart of 81 beats per minute 3. No significant pauses or bradycardia noted 4. Patient reported events correlated with baseline atrial fibrillation MTDD
== END ==
LOC: HO.CARD 11:16
PROVIDERS: Visit Provider Nurse Practitioner Family
DX: I48.0 Paroxysmal atrial fibrillation (principal)
CPT/HCPCS: 93242

== ENCOUNTER → 2022-05-10 10:06 | Outpatient (BNVA) | payer MEDICARE, SELFPAY | PROVIDERS: PCP Family Medicine; Referring Provider Family Medicine; Visit Provider Internal Medicine Cardiovascular Disease | DX: I48.19 Other persistent atrial fibrillation (principal); Z79.01 Long term (current) use of anticoagulants | CPT/HCPCS: 93005; 99212 ==

== ENCOUNTER → 2022-07-30 12:36 | Outpatient (REF) | payer MEDICARE, SELFPAY ==
--- NOTE | 2022-07-30 12:40 | CA_ITS ---
Transthoracic Echocardiogram Patient (Last, First, Middle): Abby Marie R Gender: Female Date of : 1955 Age: 66 Procedure Date: 07/30/2022 Procedure Type: Transthoracic Echocardiogram Location: OP Height: 172.72 cm Weight: 136.08 kg BSA: 2.43 m2 Heart Rate: bpm Inclusion Intern: DEANNE Referring MD: Chad Rios MD Avionics Manager: Chad Rios MD Symptoms: I48.19 - Other persistent atrial fibrillation Study Quality: Adequate w contrast ECG Rhythm: Atrial Fibrillation Conclusions: - 1. Technically limited study despite use of contrast 2. Normal LV systolic function with LVEF of 65-70% 3. Mildly dilated left atrium 4. Limited visualization with of cardiac valves with normal cardiac valvular Dopplers 5. Trivial pericardial effusion Findings Procedure Information Contrast agent, definity, is being given per protocol without apparent complications. Left Ventricle Normal left ventricular size, thickness, and systolic function. The visually estimated ejection fraction is between 65-70%. Diastolic function is indeterminate on the basis of available data. Right Ventricle The right ventricle was not well visualized. Atria The left atrium is mildly dilated. Interatrial shunt cannot be excluded. The right atrium was not well visualized. Aortic Valve The aortic valve was not well visualized. There is no aortic valve stenosis. There is no aortic valve regurgitation. Mitral Valve There is mild anterior mitral leaflet thickening. There is mild mitral annular calcification. There is trace mitral valve regurgitation. There is no mitral valve stenosis. Pulmonic Valve The pulmonic valve was not well visualized. Tricuspid Valve The tricuspid valve was not well visualized. Tricuspid regurgitation envelope is inadequate for calculation of right ventricular systolic pressure. Venous The inferior vena cava is normal in size and collapses greater than 50% with inspiration. Pericardium/Pleural There is a trivial pericardial effusion. Prior Study Comparison no significant change in LV systolic function Measurements 2D Linear Measurements IVSd: 0.86 0.6-0.9/0.6-1.0 cm LVIDd: 5.13 3.9-5.3/4.2-5.9 cm LVIDd Index: 2.11 2.4-3.2/2.2-3.1 cm/m2 LVIDs: 3.45 2.0-3.6 cm LVPWd: 0.86 0.7-1.1 cm Ao Root: 2.80 2.1-3.5 cm LA Diam: 4.90 2.7-3.8/3.0-4.0 cm LAIDs Index: 2.02 1.5-2.3 cm/m2 LV Mass: 192.99 67-162/88-224 g LV Mass Index: 79.42 43-95/49-115 g/m2 LVOT Diam: 2.00 3.0+(-)1.3 cm 2D Systolic Function EF 4C: 70.80 >55% EF 2C: 58.80 >55% EF BiP: 65.40 >55% Mitral Valve MV Pk E: 1.08 E'Medial: 7.78 E/E' Med: 13.90 Aortic Valve AoV Pk Miguel: 1.31 AoV Pk Grad: 7.00 LVOT LVOT Pk Miguel: 1.00 LVOT Mn Miguel: 0.67 LVOT VTI: 0.19 LVOT Pk Grad: 4.00 LVOT Mn Grad: 2.00 LVOT Diam: 2.00 LVOT Area: 3.14 Diastolic Function MV Pk E: 1.08 E'Medial: 7.78 E/E' Med: 13.90 Right Ventricle TAPSE (mm): 21.90 TVS' Miguel: 11.80 Tricuspid Valve RA Press: 3.00 Great Vessels Aorta Ao Root-2D: 2.80 2.0-3.7 cm Ao Asc: 3.50 2.1-3.4 cm Pulmonary Valve PV Pk Miguel: 1.12 Peak PV Grad: 5.00 Updated in Other Vendor System with Status of Final Chad Rios MD electronically signed on 07/31/2022 4:55:37 PM with status of Final
== END ==
LOC: HO.CARD 12:36
PROVIDERS: PCP Family Medicine; Visit Provider Internal Medicine Cardiovascular Disease
DX: I48.19 Other persistent atrial fibrillation (principal)
CPT/HCPCS: 93306; Q9957

== ENCOUNTER → 2022-08-06 11:03 | Outpatient (BNVA) | payer MEDICARE, SELFPAY | PROVIDERS: PCP Family Medicine; Referring Provider Family Medicine; Visit Provider Internal Medicine Cardiovascular Disease | DX: I48.19 Other persistent atrial fibrillation (principal); I10 Essential (primary) hypertension | CPT/HCPCS: 93005; 99212 ==

== ENCOUNTER → 2022-09-21 10:40 | Outpatient (BNVA) | payer MEDICARE, SELFPAY | PROVIDERS: PCP Family Medicine; Visit Provider Surgery | DX: N60.99 Unspecified benign mammary dysplasia of unspecified breast (principal); Z80.3 Family history of malignant neoplasm of breast | CPT/HCPCS: 99212 ==

== ENCOUNTER 2022-10-08 10:24 | Outpatient (REF) | payer MEDICARE, SELFPAY ==
[2022-10-08 14:17] LABS: Estimated Average Glucose 111 mg/dL; Hemoglobin A1c % 5.5 %
[2022-10-08 14:44] LABS: Anion Gap 14 (12-20); Blood Urea Nitrogen 24 mg/dL (9-16); Calcium 9.4 mg/dL (8.4-10.2); Carbon Dioxide 27 mmol/L (22-29); Chloride 107 mmol/L (96-108); Cholesterol 186 mg/dL; Estimated Glomerular Filt Rate > 60; Glucose Random 98 mg/dL (60-115); HDL Cholesterol 58 mg/dL; LDL Cholesterol Calculated 115 mg/dl; Potassium 4.3 mmol/L (3.3-5.1); Sodium 144 mmol/L (135-145); Triglycerides 68 mg/dL
[2022-10-08 14:49] LABS: Insulin 10 uU/mL (2-29); TSH reflex Free T4 1.76 uIU/mL (0.32-4.0)
[2022-10-09 13:24] LABS: Creatinine Urine 117.51 mg/dL; Microalbum/Creatinine Ratio Ur 8.5 ug/mg cr
== END 2022-10-08 10:25 | disposition home or self-care (01) ==
LOC: HO.WFDLDS 10:24
PROVIDERS: Visit Provider Family Medicine
DX: Z13.89 Encounter for screening for other disorder (principal)
CPT/HCPCS: 80048; 80061; 83036; 83525; 84443

== ENCOUNTER 2022-10-08 10:24 | Outpatient (REF) | payer MEDICARE, SELFPAY ==
[2022-10-08 14:56] LABS: Influenza A PCR NEGATIVE (Negative); Influenza B PCR NEGATIVE (Negative); Resp Syncy Virus RNA Qual PCR NEGATIVE (Negative); SARS COV2 PCR INHOUSE NEGATIVE (Negative)
== END 2022-10-08 10:25 | disposition home or self-care (01) ==
LOC: HO.LAB 10:24
PROVIDERS: Visit Provider Family Medicine
DX: Z00.00 Encounter for general adult medical examination without abnormal findings (principal); Z20.822 Contact with and (suspected) exposure to COVID-19; J02.9 Acute pharyngitis, unspecified; R73.01 Impaired fasting glucose
CPT/HCPCS: 0241U; 36415; 80048; 80061; 82043; 83036; 83525; 84443

== ENCOUNTER → 2023-02-04 10:37 | Outpatient (BNVA) | payer MEDICARE, SELFPAY | PROVIDERS: PCP Family Medicine; Referring Provider Family Medicine; Visit Provider Internal Medicine Cardiovascular Disease | DX: I48.19 Other persistent atrial fibrillation (principal); I49.5 Sick sinus syndrome; I10 Essential (primary) hypertension; Z79.01 Long term (current) use of anticoagulants; Z79.899 Other long term (current) drug therapy | CPT/HCPCS: 99212 ==

== ENCOUNTER 2023-02-25 10:44 | Outpatient (REF) | payer MEDICARE, SELFPAY ==
--- NOTE | ~2023-02-25 | MM_ITS ---
EXAMINATION: MM SCREENING DIGITAL BREAST TOMOSYNTHESIS, BILATERAL CLINICAL INFORMATION: Screening. Asymptomatic. Family history breast cancer sister, paternal aunt. Personal history benign left MR guided breast biopsy 10/18/2017 (Benign breast tissue with usual ductal hyperplasia, microcysts, stromal fibrosis, and apocrine metaplasia). The lifetime risk of breast cancer based on the Tyrer-Cuzick Model is 19%. COMPARISON: Mammography: 02/24/2020, 11/05/1720, 11/18/2019, 10/01/2018 TECHNIQUE: Digital breast tomosynthesis is performed in both the craniocaudal and mediolateral oblique views along with computer-aided detection (CAD). Synthesized 2D images are generated from the tomosynthesis. Additional views are provided: Left CC, bilateral MLO. FINDINGS: The breasts are heterogeneously dense, which may obscure small masses (ACR BI-RADS breast composition Category c). Parenchymal pattern is similar to prior studies and there is no developing density or interval mass or architectural abnormality. Again, there are scattered benign vascular and round and some coarse calcifications in each breast. The axilla and skin contours are unremarkable. Left breast has an old biopsy clip marker posterior 3:30. There are punctate calcifications 2 cm anterior to the clip, possibly increased from prior studies. Patient will be recalled for additional magnification views. MM/MM tomosynthesis screening BI IMPRESSION: Left: -Calcifications posterior 3:30 possibly increased from prior studies. Right: -No mammographic evidence of malignancy. ASSESSMENT: BI-RADS 0: Incomplete - Need Additional Imaging Evaluation RECOMMENDATION: 1. Additional views left breast (magnification CC, magnification ML). 2. Radiology department staff will contact the patient for additional imaging. This patient's information was entered into a reminder system with a target due date for their next mammogram.
== END 2023-02-25 10:45 | disposition home or self-care (01) ==
LOC: HO.MAMMO 10:44
PROVIDERS: PCP Family Medicine; Visit Provider Family Medicine
DX: Z12.31 Encounter for screening mammogram for malignant neoplasm of breast (principal)
CPT/HCPCS: 77063; 77067

== ENCOUNTER 2023-03-07 08:53 | Outpatient (REF) | payer MEDICARE, SELFPAY ==
--- NOTE | ~2023-03-07 | MM_ITS ---
EXAMINATION: MM DIAGNOSTIC DIGITAL MAMMOGRAPHY, LEFT CLINICAL INFORMATION: Recall from screening for calcifications posterior 3:30. History benign left MR guided biopsy 2018 (benign breast tissue with usual ductal hyperplasia, microcysts, stromal fibrosis, and apocrine metaplasia). Family history breast cancer: Sisters x2, paternal aunt. Patient also shares personal history ADH. COMPARISON: Prior mammography exams including most recent 02/25/2023, outside breast MRI 10/22/2022 ([facility]). TECHNIQUE: Digital mammography is performed in the following views: Magnification left CC, magnification left ML, magnification left MLO x2. FINDINGS: The breasts are heterogeneously dense, which may obscure small masses (ACR BI-RADS breast composition Category c). The additional magnification views confirm loosely grouped calcifications approximately 2.5 cm anterior to the MR biopsy clip marker. The calcifications are round but vary in size, around 10 in number, increased from prior studies. Results and management options are discussed with the patient at time of visit. Patient is in favor of stereotactic sampling. MM/MM added views LT IMPRESSION: -Loosely grouped calcifications posterior lower outer left breast. ASSESSMENT: BI-RADS 4: Suspicious (subcategory 4A: Low suspicion for malignancy) RECOMMENDATION: Stereotactic sampling left breast calcifications. This patient's information was entered into a reminder system with a target due date for their next mammogram.
== END 2023-03-07 08:54 | disposition home or self-care (01) ==
LOC: HO.MAMMO 08:53
PROVIDERS: Visit Provider Family Medicine
DX: R92.1 Mammographic calcification found on diagnostic imaging of breast (principal)
CPT/HCPCS: 77065

== ENCOUNTER 2023-03-11 09:51 | Outpatient (REF) | payer MEDICARE, SELFPAY ==
--- NOTE | ~2023-03-11 | MM_ITS ---
EXAMINATION: STEREOTACTIC TOMOSYNTHESIS-GUIDED VACUUM-ASSISTED BREAST BIOPSY, LEFT SPECIMEN RADIOGRAPH, LEFT POST PROCEDURE DIGITAL MAMMOGRAM, LEFT CLINICAL INFORMATION: Loosely grouped calcifications posterior lower outer left breast. Prior history benign left MR guided biopsy This area 2018 (benign breast tissue with usual ductal hyperplasia, microcysts, stromal fibrosis, and apocrine metaplasia). Patient also provides personal history atypical ductal hyperplasia and family history breast cancer including premenopausal breast cancer, sister. COMPARISON: Prior mammography exams including most recent study 03/07/2023 and 02/25/2023. TECHNIQUE/PROCEDURE: Informed consent was obtained from the patient after discussion of the benefits, risks, and alternatives to biopsy today. Patient appeared to understand. Gave opportunity for questions. Patient signed consent form. BIOPSY TABLE: [employer] Prone Biopsy System. LESION: Calcifications posterior outer left breast approximately 2.5 cm anterior to old MR guided biopsy clip marker. LOCAL ANESTHESIA: 10 mL carbonated 1% lidocaine; 10 mL 1% lidocaine with epinephrine. DERMATOTOMY: Single skin saeed dermatotomy performed. NEEDLE: [employer] Eviva 9-gauge vacuum assisted core biopsy device. APPROACH: Lateral medial. TARGETING: Combination of digital breast tomosynthesis and stereotactic digital mammography used for targeting. CORES: 8. CLIP: [employer] SecurMark Buckle-shaped marker. SPECIMEN RADIOGRAPH: Specimen radiograph is taken in separate room using digital mammography. There are at least 8 calcifications in the cores. POST PROCEDURE UNILATERAL DIGITAL MAMMOGRAM: The post biopsy mammogram is performed in separate room using separate digital mammography equipment from the biopsy procedure. CC and LM views are obtained. In addition, 3-D CC view is performed with synthesized image generated from the tomography. There are scattered areas of fibroglandular density (breast composition category: b). The clip marker is in position. The calcifications are markedly decreased at the biopsy site and no longer clearly visible. No gross three-dimensional hematoma appreciated. The patient tolerated the procedure well. No immediate complications. Home instructions reviewed with the patient. Final pathology results are pending. MM/MM stereotactic biopsy LT IMPRESSION: 1. Digital tomosynthesis-guided core biopsy left breast with clip placement. 2. Specimen radiograph taken and post procedure mammogram. There is satisfactory positioning of the biopsy clip. 3. Final pathology results pending. An addendum report will be issued.
== END 2023-03-11 09:52 | disposition home or self-care (01) ==
LOC: HO.MAMMO 09:51
PROVIDERS: PCP Family Medicine; Visit Provider Surgery
DX: R92.8 Other abnormal and inconclusive findings on diagnostic imaging of breast (principal); Z91.89 Other specified personal risk factors, not elsewhere classified
CPT/HCPCS: 19081; 88305; 88341; 88342; 88360; A4648

== ENCOUNTER → 2023-03-22 10:21 | Outpatient (BNVA) | payer MEDICARE, SELFPAY | PROVIDERS: PCP Family Medicine; Visit Provider Surgery | DX: N60.99 Unspecified benign mammary dysplasia of unspecified breast (principal); Z80.3 Family history of malignant neoplasm of breast | CPT/HCPCS: 99212 ==

== ENCOUNTER → 2023-04-12 21:28 | Outpatient (REF) | payer MEDICARE, SELFPAY | LOC: HO.SL 21:28 | PROVIDERS: PCP Family Medicine; Visit Provider Nurse Practitioner Family | DX: G47.33 Obstructive sleep apnea (adult) (pediatric) (principal) | CPT/HCPCS: 95810 ==

== ENCOUNTER → 2023-04-12 21:33 | Outpatient (BNV) | payer MEDICARE, SELFPAY | PROVIDERS: PCP Family Medicine; Visit Provider Psychiatry & Neurology Neurology | DX: G47.33 Obstructive sleep apnea (adult) (pediatric) (principal) | CPT/HCPCS: 95810 ==

== ENCOUNTER 2023-04-17 09:43 | Outpatient (REF) | payer MEDICARE, SELFPAY ==
--- NOTE | ~2023-04-17 | MM_ITS ---
EXAMINATION: BONE DENSITOMETRY CLINICAL INDICATION: DCIS of left breast. Osteopenia. COMPARISON: Baseline BD dated 03/31/2020. TECHNIQUE: Using a [employer] DXA System (software version: 13.1) manufactured by [employer], dual-energy x-ray absorptiometry was performed of the lumbar spine and left hip. The images are of good technical quality. Summary results are attached. FINDINGS: AP SPINE L1-L4: Current: BMD 1.202 g/cm2, Z-score 0.6, T-score 0.2, normal, 0.8% increase from baseline (<5% change is not significant). Baseline: BMD 1.193 g/cm2. LEFT FEMUR, NECK: Current: BMD 1.194 g/cm2, Z-score 1.9, T-score 1.1, normal. Baseline: BMD 1.219 g/cm2. LEFT FEMUR, TOTAL: Current: BMD 1.297 g/cm2, Z-score 2.8, T-score 2.3, normal, 2.5% decrease from baseline (<5% change is not significant). Baseline: BMD 1.330 g/cm2. IDENTIFIED RISK FACTORS: Height loss. Menopause. HISTORY OF FRACTURE: None listed. MEDICATIONS: Vitamin D. MM/XR DEXA axial skeleton IMPRESSION: 1. DIAGNOSIS: Normal bone density based on the lowest T-score value of 0.2 in the lumbar spine applying World Health Organization criteria. 2. 10-YEAR FRACTURE RISK PREDICTION, FRAX: According to the guidelines, FRAX calculation should only be performed on patients in the osteopenia bone density category.?Therefore, FRAX was not performed on this patient.? 3. Treatment Recommendations: NOF guidelines recommend consideration for treatment in postmenopausal women and men age 50 and older presenting with the following: -A hip or vertebral (clinical or morphometric) fracture. -T-score less than or equal to -2.5 at the femoral neck or spine after appropriate evaluation to exclude secondary causes. -Low bone mass at the hip or spine and a 10-year fracture probability by FRAX of greater than or equal to 3% for hip fracture or greater than or equal to 20% for major osteoporotic fracture based on the [place] adapted WHO algorithm. 4. Other Recommendations: All treatment decisions require clinical judgment and consideration of individual patient factors, including patient preferences, comorbidities, previous drug use, risk factors not captured in the FRAX model (e.g. frailty, falls, vitamin D deficiency, increased bone turnover, interval significant decline in bone density) and possible under or overestimation of fracture risk by FRAX. FUTURE SCAN RECOMMENDATION: People with diagnosed cases of osteoporosis or at high risk for fracture should have regular bone mineral density tests. For patients eligible for Medicare, routine testing is allowed once every 2 years. The testing frequency can be increased to one year for patients who have rapidly progressing disease, those who are receiving or discontinuing medical therapy to restore bone mass, or have additional risk factors.
== END 2023-04-17 09:44 | disposition home or self-care (01) ==
LOC: HO.MAMMO 09:43
PROVIDERS: PCP Family Medicine; Visit Provider Internal Medicine Medical Oncology
DX: Z13.820 Encounter for screening for osteoporosis (principal); M85.9 Disorder of bone density and structure, unspecified; D05.12 Intraductal carcinoma in situ of left breast; Z78.0 Asymptomatic menopausal state
CPT/HCPCS: 77080

== ENCOUNTER → 2023-04-17 09:45 | Outpatient (BNV) | payer MEDICARE, SELFPAY | PROVIDERS: PCP Family Medicine; Visit Provider Radiology Diagnostic Radiology | DX: N60.99 Unspecified benign mammary dysplasia of unspecified breast (principal); M85.80 Other specified disorders of bone density and structure, unspecified site | CPT/HCPCS: 77080 ==

== ENCOUNTER → 2023-05-12 20:30 | Outpatient (REF) | payer MEDICARE, SELFPAY | LOC: HO.SL 20:30 | PROVIDERS: Visit Provider Nurse Practitioner Family | DX: G47.33 Obstructive sleep apnea (adult) (pediatric) (principal) | CPT/HCPCS: 95811 ==

== ENCOUNTER → 2023-05-12 20:30 | Outpatient (BNV) | payer MEDICARE, SELFPAY | PROVIDERS: Visit Provider Psychiatry & Neurology Neurology | DX: G47.33 Obstructive sleep apnea (adult) (pediatric) (principal) | CPT/HCPCS: 95811 ==

== ENCOUNTER 2023-05-23 09:29 | Outpatient (AMB) | payer MEDICARE, SELFPAY ==
[2023-05-23 09:31] VITALS: BP 130/74; PULSE 88; O2SAT 97; BMI 45.2
--- NOTE | 2023-05-23 09:31 | MHC.PC.OV ---
Vital Signs 05/23/23 09:31 Height 5 ft 7 in Weight 288 lb 6 oz BMI 45.2 BP 130/74 Blood Pressure Location Lt brachial Position Sitting Pulse 88 Pulse Source Pulse Oximeter Pulse Oximetry (%) 97 Oxygen Delivery Method Room Air Intake Visit Reasons: f/u hypertension and chronic conditions Intake Note: Patient is here for follow up on hypertension and chronic conditions. Allergies oxycodone Allergy (Severe, Verified 05/23/23 09:36) Hives tramadol Allergy (Severe, Verified 05/23/23 09:36) Hives meperidine [From DEMEROL] Allergy (Intermediate, Verified 05/23/23 09:36) RASH bee venom protein (honey bee) Allergy (Mild, Verified 05/23/23 09:36) Swelling Tobacco use date assessed: 05/23/23 Fall risk assessment: No Falls in past year Last assessed Fall Risk: 05/23/23 Dental Screening Dental Screen Date: 05/23/23 Did you have a dental visit in the last 12 months?: Yes Did you have a dental problem in the last 6 months where you did not have access to dental care?: No Was dental information given to patient?: Patient has dentist HPI f/u hypertension and chronic conditions HPI Details 67 y/o female presents to f/u hypertension and chronic conditions. Blood pressure today 130/74. She is on diltiazem 180mg daily. 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 She has BRCA mutation and family history of breast cancer. She was seen at [facility] and surgical panel there recommended bilateral mastectomies. Patient has decided to go forward with this HPI Comments History of Present Illness Details Documentation assistance for He Mei MD, was provided by Ashutosh Yen,? Roofing Sales Representative on 05/23/2023 10:01 AM EST. Evangelista, Dr. Mei, have read, observed, and verified documentation.? [facility] Medical History Afib At high risk for breast cancer Cholecystectomy planned Family history of breast cancer Paroxysmal A-fib Sick sinus syndrome Surgical History H/O section History of breast biopsy History of cholecystectomy History of shoulder surgery History of surgery Family History Sister Colon cancer Heart failure Mother Colon cancer HTN (hypertension) Father Sister Breast cancer Colon cancer Sister Breast cancer Brother No problems noted. Brother No problems noted. Brother No problems noted. Daughter No problems noted. Social History Household Members: None Housing: House Are you a primary acute care assistant to a significant other at home: No Do you presently have visiting nurse or other home services: No Alcohol intake: former Patient Tobacco Use Status: Former Tobacco user e-Cigarette/Vaping Use: Never Used Second Hand Smoke Exposure: No service: No Current occupational status: retired Current occupational exposures/hazards: No Cognitive needs: No Hearing needs: No Vision needs: Yes (Glasses) Questionnaire Thrive Questionnaire Date Thrive assessed: 10/08/22 EVERETTE-7 AMB Questionnaire EVERETTE-7 Date EVERETTE - 7 assessed: 10/08/22 Source: Developed by Drs. Miguel Lynne, Romi Dominguez, Florentino Holcomb and colleagues, with an educational graham from [employer]. Physical exam (Primary Care) Vital Signs: Last Vital Signs Pulse 88 05/23/23 09:31 BP 130/74 05/23/23 09:31 Pulse Ox 97 05/23/23 09:31 Oxygen Delivery Method Room Air 05/23/23 09:31 BMI result Body Mass Index 45.2 Tobacco/Smoking Status: Tobacco use Status Tobacco use date assessed 05/23/23 05/23/23 09:41 Patient Tobacco Use Status Former Tobacco user 05/23/23 09:41 e-Cigarette/Vaping Use Never Used 05/23/23 09:41 Thrive Assessment: Date of Thrive Assessment Date Thrive assessed 10/08/22 05/23/23 09:41 Const Nutritional Appearance: obese morbidly obese Assessment and Plan Assessment & Plan (1) Breast cancer: Code(s): C50.919 - Malignant neoplasm of unspecified site of unspecified female breast Plan: DCIS and high risk of invasive breast cancers. Patient has opted for bilateral mastectomy and is scheduled for next week. We can follow-up in a little over a month as she is recovering. (2) Essential hypertension: Code(s): I10 - Essential (primary) hypertension Plan: Blood pressure is controlled. Goal is less than 140/90 Continue diltiazem (3) Persistent atrial fibrillation: Code(s): I48.19 - Other persistent atrial fibrillation Plan: She is on rivaroxaban and diltiazem Stable (4) Hyperlipidemia: Code(s): E78.5 - Hyperlipidemia, unspecified Plan: Had been on atorvastatin but she says she discontinue this a few months ago due to discomfort. Will have her check her lipids prior to her next visit and we can follow-up on lab values Orders: Orders Lipid Panel Today E78.5 - Hyperlipidemia, unspecified, Z00.00 - Encounter for general adult medical examination without abnormal findings Comprehensive [place]. Panel Fast Today E78.5 - Hyperlipidemia, unspecified, Z00.00 - Encounter for general adult medical examination without abnormal findings Coding Level of Care Code Est Pt Level 4 (99441) Diagnoses Breast cancer C50.919 Essential hypertension I10 Persistent atrial fibrillation I48.19 Hyperlipidemia E78.5
== END 2023-05-23 10:18 | disposition home or self-care (01) ==
PROVIDERS: PCP Family Medicine; Visit Provider Family Medicine
DX: C50.919 Malignant neoplasm of unspecified site of unspecified female breast (principal); I10 Essential (primary) hypertension; I48.19 Other persistent atrial fibrillation; E78.5 Hyperlipidemia, unspecified
CPT/HCPCS: 99214

== ENCOUNTER 2023-07-11 11:20 | Outpatient (AMB) | payer MEDICARE, SELFPAY ==
--- NOTE | 2023-07-11 11:27 | A.OFFVIS_ITS ---
Intake Vital Signs 07/11/23 11:29 Weight 284 lb 4 oz BP 132/68 Blood Pressure Location Lt brachial Position Sitting Pulse 102 H Pulse Source Pulse Oximeter Pulse Oximetry (%) 96 Oxygen Delivery Method Room Air Intake Visit Reasons: F/u Cpap - confirmed Intake Note: Pt presents today for fup CPAP , pt here to re establish care Allergies oxycodone Allergy (Severe, Verified 07/11/23 11:32) Hives tramadol Allergy (Severe, Verified 07/11/23 11:32) Hives meperidine [From DEMEROL] Allergy (Intermediate, Verified 07/11/23 11:32) RASH bee venom protein (honey bee) Allergy (Mild, Verified 07/11/23 11:32) Swelling HPI HPI Comments History of Present Illness Details 67-yr-old female presents for new in-per son patient visit for follow up of sleep study. The PSG sleep study result was significant for severe degree of sleep apnea. The AHI was 56/hr and oxygen brooks was 84%. Pt underwent titration study and recommended CPAP at [id number]. Pt currently uses CPAP at [id number]. The CPAP compliance and therapy response is not available at this time. New CPAP prescription sent to [facility] and she had a phone call that the home care company needs to evaluate the CPAP and will decide she will get new CPAP or not. She has not have appointment for CPAP evaluation yet. Pt sleeps well with current CPAP and daytime sleepiness has improved. [facility] Medical History Afib Sick sinus syndrome Cholecystectomy planned At high risk for breast cancer Family history of breast cancer Paroxysmal A-fib Surgical History (Updated 07/11/23 @ 11:34 by Elizabeth Dillard) H/O bilateral mastectomy History of cholecystectomy History of shoulder surgery History of surgery History of breast biopsy H/O section Family History Sister Colon cancer Heart failure Mother Colon cancer HTN (hypertension) Father Sister Breast cancer Colon cancer Sister Breast cancer Brother No problems noted. Brother No problems noted. Brother No problems noted. Daughter No problems noted. Social History Household Members: None Housing: House Are you a primary primary care coordinator to a significant other at home: No Do you presently have visiting nurse or other home services: No Alcohol intake: former Patient Tobacco Use Status: Former Tobacco user e-Cigarette/Vaping Use: Never Used Second Hand Smoke Exposure: No service: No Current occupational status: retired Current occupational exposures/hazards: No Cognitive needs: No Hearing needs: No Vision needs: Yes (Glasses) Review of Systems Const All systems reviewed & are unremarkable except as noted in HPI and below Physical Exam Vital Signs: Last Vital Signs Pulse 102 H 07/11/23 11:29 BP 132/68 07/11/23 11:29 Pulse Ox 96 07/11/23 11:29 Oxygen Delivery Method Room Air 07/11/23 11:29 Const General: no acute distress Orientation/consciousness: patient oriented x3 HEENT Other: Mallampati stage 4 Resp Effort & Inspection: normal respiratory effort and able to speak in complete sentences Cardio Rate: regular rate Rhythm: regular rhythm Neuro General: patient oriented x3 Psych Mental Status: mental status grossly normal Speech and movement: Clear speech present Attitude: cooperative Assessment & Plan Assessment & Plan (1) Severe obstructive sleep apnea: Code(s): G47.33 - Obstructive sleep apnea (adult) (pediatric) Plan Advised patient to contact [facility] to make an appointment for CPAP evaluation. CPAP prescription given to patient to adjust the pressure to [id number]. Stressed CPAP compliance, use CPAP nightly and more than 4 hrs. Wt reduction advised. Coding Level of Care Code Est Pt Level 3 (30504) Diagnoses Severe obstructive sleep apnea G47.33
[2023-07-11 11:29] VITALS: BP 132/68; PULSE 102; O2SAT 96
== END 2023-07-11 11:49 | disposition home or self-care (01) ==
PROVIDERS: Visit Provider Nurse Practitioner Family
DX: G47.33 Obstructive sleep apnea (adult) (pediatric) (principal)
CPT/HCPCS: 99213

== ENCOUNTER → 2023-07-11 11:20 | Outpatient (BNVA) | payer MEDICARE, SELFPAY | PROVIDERS: Visit Provider Nurse Practitioner Family | DX: G47.33 Obstructive sleep apnea (adult) (pediatric) (principal) | CPT/HCPCS: 99212 ==

== ENCOUNTER 2023-07-26 16:24 | Outpatient (AMB) | payer MEDICARE, SELFPAY ==
--- NOTE | 2023-07-26 16:30 | MHC.PC.OV ---
Vital Signs 07/26/23 16:34 Height 5 ft 7 in Weight 286 lb BMI 44.8 BP 132/76 Blood Pressure Location Lt brachial Position Sitting Pulse 96 Pulse Source Pulse Oximeter Pulse Oximetry (%) 97 Oxygen Delivery Method Room Air Intake Visit Reasons: ? vertigo post covid Intake Note: Patient is here with question of vertigo, post Covid, was fine after surgery. Allergies oxycodone Allergy (Severe, Verified 07/26/23 16:32) Hives tramadol Allergy (Severe, Verified 07/26/23 16:32) Hives meperidine [From DEMEROL] Allergy (Intermediate, Verified 07/26/23 16:32) RASH bee venom protein (honey bee) Allergy (Mild, Verified 07/26/23 16:32) Swelling Tobacco use date assessed: 07/26/23 Fall risk assessment: 1 Fall in past year Last assessed Fall Risk: 08/21/23 HPI ? vertigo post covid HPI Details 67 y/o female presents today with ? vertigo post covid. She reports she had COVID around the 02 of July. She reports she felt improved about a week ago. She does report a post-viral cough. She reports vertigo a couple nights ago - she reports sensation of spinning and felt like she was about to fall. She also reports some nausea. HPI Comments History of Present Illness Details Documentation assistance for He Mei MD, was provided by Ashutosh Yen,? International Account Representative on 07/26/2023 4:57 PM EST. I, Dr. Mei, have read, observed, and verified documentation.? [facility] Medical History (Updated 07/26/23 @ 17:06 by Ashutosh Yen) Afib Sick sinus syndrome Cholecystectomy planned At high risk for breast cancer Family history of breast cancer Paroxysmal A-fib Surgical History (Updated 07/11/23 @ 11:34 by Elizabeth Dillard) H/O bilateral mastectomy History of cholecystectomy History of shoulder surgery History of surgery History of breast biopsy H/O section Family History Sister Colon cancer Heart failure Mother Colon cancer HTN (hypertension) Father Sister Breast cancer Colon cancer Sister Breast cancer Brother No problems noted. Brother No problems noted. Brother No problems noted. Daughter No problems noted. Social History Household Members: None Housing: House Are you a primary personal care attendant to a significant other at home: No Do you presently have visiting nurse or other home services: No Alcohol intake: former Patient Tobacco Use Status: Former Tobacco user e-Cigarette/Vaping Use: Never Used Second Hand Smoke Exposure: No service: No Current occupational status: retired Current occupational exposures/hazards: No Cognitive needs: No Hearing needs: No Vision needs: Yes (Glasses) Questionnaire Thrive Questionnaire Date Thrive assessed: 10/08/22 EVERETTE-7 AMB Questionnaire EVERETTE-7 Date EVERETTE - 7 assessed: 10/08/22 Source: Developed by Drs. Miguel Lynne, Romi Dominguez, Florentino Holcomb and colleagues, with an educational graham from [employer]. Review of Systems Const Denies chills, Denies fatigue, Denies fever(s), Denies headache(s) and Denies weakness ENT Denies dizziness and Denies headache(s) Card Denies dyspnea Resp Denies cough, Denies dyspnea, Denies wheezing and Denies other (shortness of breath) GI Reports nausea Musc Denies numbness and Denies tingling Neuro Denies dizziness, Denies headache(s), Denies numbness, Denies tingling and Denies weakness Psych Denies anxiety and Denies depression Endo Denies fatigue Aller/Immun Denies wheezing Physical exam (Primary Care) Vital Signs: Last Vital Signs Pulse 96 07/26/23 16:34 BP 132/76 07/26/23 16:34 Pulse Ox 97 07/26/23 16:34 Oxygen Delivery Method Room Air 07/26/23 16:34 BMI result Body Mass Index 44.8 Tobacco/Smoking Status: Tobacco use Status Tobacco use date assessed 07/26/23 07/26/23 16:37 Patient Tobacco Use Status Former Tobacco user 07/26/23 16:37 e-Cigarette/Vaping Use Never Used 07/26/23 16:37 Thrive Assessment: Date of Thrive Assessment Date Thrive assessed 10/08/22 07/26/23 16:37 Const General: well developed; No acute distress Nutritional Appearance: well nourished Orientation/consciousness: patient oriented x3 HENMT Head: Yes normocephalic and Yes atraumatic Eyes General: appearance normal, both eyes and all related structures Pupils: Equal, round and reactive pupils present EOM: EOMs intact bilaterally Resp Other: Slightly coarse breath sounds Effort & Inspection: normal respiratory effort Auscultation: clear to auscultation bilaterally Cardio Rate: regular rate Rhythm: regular rhythm Heart sounds: S1 normal heart sound present, S2 normal heart sound present, no gallops, no murmurs and no rubs Neuro General: patient oriented x3 and gait normal Cranial nerves: Yes Equal, round and reactive pupils present Psych Affect: normal affect Assessment and Plan Assessment & Plan (1) Vertigo: Code(s): R42 - Dizziness and giddiness Plan: Likely?secondary?to?labyrinthitis.??Patient?recently?had?viral?illness?though?this?has?resolved. Will?give?her?a?script?for?prednisone?x5?days Also?having?some?nausea?so?will?give?her?a?script?for?meclizine?as?well If?not?improving?she?will?let?me?know.??Would?consider?referring?her?for?vestibular?rehab (2) Viral illness: Code(s): B34.9 - Viral infection, unspecified Plan: Resolved (3) Cough: Code(s): R05.9 - Cough, unspecified Plan: Likely?postviral?tussive?syndrome?which?can?last?up?to?6?weeks. She?will?let?me?know?if?this?persists Coding Level of Care Code Est Pt Level 4 (24143) Diagnoses Vertigo R42 Viral illness B34.9 Cough R05.9
[2023-07-26 16:34] VITALS: BP 132/76; PULSE 96; O2SAT 97; BMI 44.8
== END 2023-07-26 17:26 | disposition home or self-care (01) ==
PROVIDERS: PCP Family Medicine; Visit Provider Family Medicine
DX: R42 Dizziness and giddiness (principal); B34.9 Viral infection, unspecified; R05.9 Cough, unspecified
CPT/HCPCS: 99214

== ENCOUNTER 2023-08-20 10:18 | Outpatient (AMB) | payer MEDICARE, SELFPAY ==
[2023-08-20 10:21] VITALS: BP 120/76; PULSE 97; BMI 45.4
--- NOTE | 2023-08-20 10:21 | MHC.OFFVIS ---
Intake Vital Signs 08/20/23 10:21 Height 5 ft 7 in Weight 290 lb BMI 45.4 BP 120/76 Blood Pressure Location Lt brachial Position Sitting Pulse 97 Intake Visit Reasons: 6 month follow up w/ EKG Intake Note: 6 month follow-up with ekg feeling good Cable Placer Required: No Allergies oxycodone Allergy (Severe, Verified 07/26/23 16:32) Hives tramadol Allergy (Severe, Verified 07/26/23 16:32) Hives meperidine [From DEMEROL] Allergy (Intermediate, Verified 07/26/23 16:32) RASH bee venom protein (honey bee) Allergy (Mild, Verified 07/26/23 16:32) Swelling Medication List - Last Reconciled 08/20/23 by Chad Rios MD atorvastatin 10 mg PO DAILY 90 days bupropion HCl 75 mg PO BID 90 days diltiazem HCl (Cardizem CD) 180 mg PO DAILY epinephrine 0.3 mg IM Q4H PRN rivaroxaban (Xarelto) 20 mg PO DAILY HPI HPI Comments History of Present Illness Details Abby comes for follow-up. She has no new cardiovascular symptoms. She underwent bilateral mastectomy for breast cancer and family history as well as genetic abnormality on her screening. Patient is currently having no cardiac symptoms of prolonged palpitation irregular heartbeat. Denies any lightheadedness, syncope. Denies any heart failure symptoms. No exertional chest pain. [facility] Medical History Afib Sick sinus syndrome Cholecystectomy planned At high risk for breast cancer Family history of breast cancer Paroxysmal A-fib Surgical History H/O bilateral mastectomy History of cholecystectomy History of shoulder surgery History of surgery History of breast biopsy H/O section Family History Sister Colon cancer Heart failure Mother Colon cancer HTN (hypertension) Father Sister Breast cancer Colon cancer Sister Breast cancer Brother No problems noted. Brother No problems noted. Brother No problems noted. Daughter No problems noted. Social History Household Members: None Housing: House Are you a primary patient care provider to a significant other at home: No Do you presently have visiting nurse or other home services: No Alcohol intake: former Patient Tobacco Use Status: Former Tobacco user e-Cigarette/Vaping Use: Never Used Second Hand Smoke Exposure: No service: No Current occupational status: retired Current occupational exposures/hazards: No Cognitive needs: No Hearing needs: No Vision needs: Yes (Glasses) Review of Systems Const Denies chills, Denies fatigue, Denies fever(s), Denies frequent falls, Denies weakness, Denies weight gain and Denies weight loss ENT Denies dizziness Card Denies chest pain, Denies leg edema, Denies lightheadedness, Denies palpitations, Denies dyspnea, Denies dyspnea on exertion, Denies orthopnea and Denies other (loss of consciousness) Resp Denies cough, Denies dyspnea and Denies dyspnea on exertion GI Denies hematochezia and Denies change in stool character Musc Denies abnormal gait, Denies muscle weakness, Denies numbness, Denies radiating pain into limb and Denies tingling Neuro Denies abnormal gait, Denies dizziness, Denies frequent falls, Denies numbness, Denies tingling and Denies weakness Endo Denies fatigue and Denies palpitations Physical Exam Vital Signs: Last Vital Signs Pulse 97 08/20/23 10:21 BP 120/76 08/20/23 10:21 BMI result Body Mass Index 45.4 Const General: cooperative, healthy appearing, comfortable and no acute distress Neck Neck: Yes trachea midline, Yes supple and Yes no JVD Resp Effort & Inspection: normal respiratory effort Auscultation: clear to auscultation bilaterally, no crackles, no rales, no rhonchi and no wheezes Cardio Rate: regular rate Rhythm: abnormal rhythm irregularly irregular Heart sounds: S1 normal heart sound present, S2 normal heart sound present, no gallops, no murmurs and no rubs GI Inspection: Yes normal to inspection Extrem General: Yes normal to inspection Psych Appearance: grossly normal Mental Status: mental status grossly normal Office Procedures EKG Details: EKG shows atrial fibrillation with nonspecific ST T wave changes with heart rate of 97 beats per minute [id number], Complete Assessment & Plan Assessment & Plan (1) Persistent atrial fibrillation: Code(s): I48.19 - Other persistent atrial fibrillation Plan: Chronic persistent atrial fibrillation, has failed rhythm control approach despite multiple attempts. Clinically doing well with no signs or symptoms of heart failure. Continue rate control approach with Cardizem. Continue full oral anticoagulation, currently on Xarelto 20 mg daily. Semi annual basic metabolic profile should be performed. Continue CPAP therapy. Continue participate in physical activity and weight loss program. (2) Essential hypertension: Code(s): I10 - Essential (primary) hypertension Plan: Hypertension which is currently well optimized on current therapy. Advised to monitor blood pressure at home maintain a log. Goal blood pressure less than 130/84. Low-salt diet was discussed continue CPAP therapy. Continue heart healthy lifestyle. Follow up in the clinic in 1 year's time, sooner p.r.n.. Thank you for allowing me to partake in her care Orders: Orders Basic Metabolic Panel Today I48.19 - Other persistent atrial fibrillation Coding Level of Care Code Est Pt Level 4 (42043) Diagnoses Persistent atrial fibrillation I48.19 Essential hypertension I10 CPT Codes EKG - CPT: 42454-[id number], Complete ([id number])
== END 2023-08-20 10:54 | disposition home or self-care (01) ==
PROVIDERS: PCP Family Medicine; Visit Provider Internal Medicine Cardiovascular Disease
DX: I48.19 Other persistent atrial fibrillation (principal); I10 Essential (primary) hypertension
CPT/HCPCS: 93010; 99214

== ENCOUNTER 2023-08-20 10:18 | Outpatient (REF) | payer MEDICARE, SELFPAY ==
[2023-08-20 14:34] LABS: Anion Gap 12 (12-20); Blood Urea Nitrogen 16 mg/dL (9-16); Calcium 9.4 mg/dL (8.4-10.2); Carbon Dioxide 28 mmol/L (22-29); Chloride 105 mmol/L (96-108); Estimated Glomerular Filt Rate 55; Glucose Random 94 mg/dL (60-115); Potassium 4.2 mmol/L (3.3-5.1); Sodium 141 mmol/L (135-145)
== END 2023-08-20 10:19 | disposition home or self-care (01) ==
LOC: HO.LAB 10:18
PROVIDERS: PCP Family Medicine; Visit Provider Internal Medicine Cardiovascular Disease
DX: I48.19 Other persistent atrial fibrillation (principal); I10 Essential (primary) hypertension
CPT/HCPCS: 36415; 80048; 93005; 99212

== ENCOUNTER 2023-08-24 09:27 | Outpatient (REF) | payer MEDICARE, SELFPAY ==
[2023-08-24 10:30] LABS: Alanine Aminotransferase 16 U/L (0-31); Albumin Level 3.9 g/dL (3.5-5.0); Alkaline Phosphatase 99 U/L (39-117); Anion Gap 14 (12-20); Aspartate Amino Transferase 13 U/L (5-31); Bilirubin Total 0.4 mg/dL (0.0-1.0); Blood Urea Nitrogen 16 mg/dL (9-16); Calcium 9.6 mg/dL (8.4-10.2); Carbon Dioxide 26 mmol/L (22-29); Chloride 106 mmol/L (96-108); Cholesterol 241 mg/dL (<200); Estimated Glomerular Filt Rate > 60; Glucose Fasting 120 mg/dL (60-99); HDL Cholesterol 61 mg/dL (>40); Potassium 4.4 mmol/L (3.3-5.1); Sodium 142 mmol/L (135-145); Total Protein 6.9 g/dL (6.5-8.0)
[2023-08-24 10:35] LABS: LDL Cholesterol Calculated 158 mg/dL (<100); Triglycerides 110 mg/dL (<150)
== END 2023-08-24 09:28 | disposition home or self-care (01) ==
LOC: HO.LAB 09:27
PROVIDERS: Visit Provider Family Medicine
DX: Z00.00 Encounter for general adult medical examination without abnormal findings (principal); E78.5 Hyperlipidemia, unspecified
CPT/HCPCS: 36415; 80053; 80061

== ENCOUNTER 2023-08-27 11:44 | Outpatient (AMB) | payer MEDICARE, SELFPAY ==
[2023-08-27 11:50] VITALS: BP 132/70; PULSE 91; O2SAT 98; BMI 45.4
--- NOTE | 2023-08-27 11:50 | MHC.PC.OV ---
Vital Signs 08/27/23 11:50 Height 5 ft 7 in Weight 290 lb BMI 45.4 BP 132/70 Blood Pressure Location Lt brachial Position Sitting Pulse 91 Pulse Source Pulse Oximeter Pulse Oximetry (%) 98 Oxygen Delivery Method Room Air Intake Visit Reasons: f/u hypertension and chronic conditions Intake Note: Patient is here to follow up on hypertension and chronic conditions. Patient would like to talk about Ozempic today. Allergies oxycodone Allergy (Severe, Verified 08/27/23 11:53) Hives tramadol Allergy (Severe, Verified 08/27/23 11:53) Hives meperidine [From DEMEROL] Allergy (Intermediate, Verified 08/27/23 11:53) RASH bee venom protein (honey bee) Allergy (Mild, Verified 08/27/23 11:53) Swelling Medication List - Last Reconciled 08/27/23 by He Mei MD atorvastatin 10 mg PO DAILY 90 days bupropion HCl 75 mg PO BID 90 days diltiazem HCl (Cardizem CD) 180 mg PO DAILY epinephrine 0.3 mg IM Q4H PRN rivaroxaban (Xarelto) 20 mg PO DAILY Tobacco use date assessed: 08/27/23 Fall risk assessment: 1 Fall in past year Last assessed Fall Risk: 08/27/23 HPI f/u hypertension and chronic conditions HPI Details 67 y/o female presents to f/u hyperlipidemia, hypertension and chronic conditions. Labs were drawn 08/24/23. Reviewed labs with pt. Triglycerides 110. TC 241. LDL 158. HDL 61. She is on artovastatin 10mg. Elevated fasting glucose. A1c today 08/27/23 is 5.7%. Pt reports her CPAP machine has been working well for her. PFSH Medical History Afib Sick sinus syndrome Cholecystectomy planned At high risk for breast cancer Family history of breast cancer Paroxysmal A-fib Surgical History H/O bilateral mastectomy History of cholecystectomy History of shoulder surgery History of surgery History of breast biopsy H/O section Family History Sister Colon cancer Heart failure Mother Colon cancer HTN (hypertension) Father Sister Breast cancer Colon cancer Sister Breast cancer Brother No problems noted. Brother No problems noted. Brother No problems noted. Daughter No problems noted. Social History Household Members: None Housing: House Are you a primary aged or disabled care worker to a significant other at home: No Do you presently have visiting nurse or other home services: No Alcohol intake: former Patient Tobacco Use Status: Former Tobacco user e-Cigarette/Vaping Use: Never Used Second Hand Smoke Exposure: No service: No Current occupational status: retired Current occupational exposures/hazards: No Cognitive needs: No Hearing needs: No Vision needs: Yes (Glasses) Questionnaire Thrive Questionnaire Date Thrive assessed: 10/08/22 EVERETTE-7 AMB Questionnaire EVERETTE-7 Date EVERETTE - 7 assessed: 10/08/22 Source: Developed by Drs. Miguel Lynne, Romi Dominguez, Florentino Holcomb and colleagues, with an educational graham from [employer]. Review of Systems Const Denies chills, Denies fatigue, Denies fever(s), Denies headache(s) and Denies weakness ENT Denies dizziness and Denies headache(s) Card Denies dyspnea Resp Denies cough, Denies dyspnea, Denies wheezing and Denies other (shortness of breath) Musc Denies numbness and Denies tingling Neuro Denies dizziness, Denies headache(s), Denies numbness, Denies tingling and Denies weakness Psych Denies anxiety and Denies depression Endo Denies fatigue Aller/Immun Denies wheezing Physical exam (Primary Care) Vital Signs: Last Vital Signs Pulse 91 08/27/23 11:50 BP 132/70 08/27/23 11:50 Pulse Ox 98 08/27/23 11:50 Oxygen Delivery Method Room Air 08/27/23 11:50 BMI result Body Mass Index 45.4 Tobacco/Smoking Status: Tobacco use Status Tobacco use date assessed 08/27/23 08/27/23 11:55 Patient Tobacco Use Status Former Tobacco user 08/27/23 11:55 e-Cigarette/Vaping Use Never Used 08/27/23 11:55 Thrive Assessment: Date of Thrive Assessment Date Thrive assessed 10/08/22 08/27/23 11:55 Const General: well developed; No acute distress Nutritional Appearance: well nourished and obese morbidly obese Orientation/consciousness: patient oriented x3 [facility] Head: Yes normocephalic and Yes atraumatic Eyes General: appearance normal, both eyes and all related structures Pupils: Equal, round and reactive pupils present EOM: EOMs intact bilaterally Resp Effort & Inspection: normal respiratory effort Auscultation: clear to auscultation bilaterally Cardio Rate: regular rate Rhythm: regular rhythm Heart sounds: S1 normal heart sound present, S2 normal heart sound present, no gallops, no murmurs and no rubs Neuro General: patient oriented x3 and gait normal Cranial nerves: Yes Equal, round and reactive pupils present Psych Affect: normal affect Assessment and Plan Assessment & Plan (1) Essential hypertension: Code(s): I10 - Essential (primary) hypertension Plan: Blood?pressure?is?fairly?well?controlled.??Goal?is?less?than?130/80 Continue?current?regimen (2) Hyperlipidemia: Code(s): E78.5 - Hyperlipidemia, unspecified Plan: LDL?cholesterol?158?is?too?high.??She?has?fairly?good?HDL?ratios?but?given?her?cardiac?history,?recommending?she?improve?this?further. She?is?going?to?resume?atorvastatin?and?work?at?diet?exercise?and?weight?loss. (3) Persistent atrial fibrillation: Code(s): I48.19 - Other persistent atrial fibrillation Plan: Stable Follow-up?with?Cardiology?as?recommended (4) Morbid obesity: Code(s): E66.01 - Morbid (severe) obesity due to excess calories Plan: Encouraged?diet?exercise?and?weight?loss. Patient?would?like?to?try?medication?to?help?with?weight?loss. (5) Sleep apnea: Code(s): G47.30 - Sleep apnea, unspecified Plan: Doing?much?better?with?new?CPAP?machine?and?face?mask/tubing Follow-up?with?sleep?medicine?as?recommended (6) Pre-diabetes: Code(s): R73.03 - Prediabetes Plan: A1c 5.7% Work at lifestyle changes and trying Wegovy for Obesity Orders: Orders AMB Hemoglobin A1c Today Z13.9 - Encounter for screening, unspecified Medications: New semaglutide (weight loss) (Lise) administer weeks 1 through 4 of therapy 0.25 mg (0.5 mL) subcut QWEEK 28 days 2 mL 2RF E66.01 - Morbid (severe) obesity due to excess calories, E88.819 - Insulin resistance, unspecified, R73.03 - Prediabetes Coding Level of Care Code Est Pt Level 4 (62070) Diagnoses Essential hypertension I10 Hyperlipidemia E78.5 Persistent atrial fibrillation I48.19 Morbid obesity E66.01 Sleep apnea G47.30 Pre-diabetes R73.03
== END 2023-08-27 12:46 | disposition home or self-care (01) ==
PROVIDERS: PCP Family Medicine; Visit Provider Family Medicine
DX: I10 Essential (primary) hypertension (principal); I48.19 Other persistent atrial fibrillation; E66.01 Morbid (severe) obesity due to excess calories; Z68.42 Body mass index [BMI] 45.0-49.9, adult; E78.5 Hyperlipidemia, unspecified; G47.30 Sleep apnea, unspecified; R73.03 Prediabetes; R73.01 Impaired fasting glucose
CPT/HCPCS: 83036; 99214

== ENCOUNTER 2023-10-07 08:12 | Day surgery (SDC) | payer MEDICARE, OTHER, SELFPAY ==
--- NOTE | 2023-10-03 14:24 | HO.ANESPROP2 ---
Documented by User: Vanessa Montgomery NP 10/03/23 14:26 HPI - Anesthesia Eval Consult details Narrative: 68yo F for Colonoscopy Follows [facility] cardiology for Afib, SSS. Stable at 08/2023 office visit. Xarelto for afib PMFSH Active Problems Active Problems: All Active Problems (Updated 08/27/23 @ 12:41 by Ashutosh Yen) Pre-diabetes (Acute) Morbid obesity (Acute) Cough (Acute) Viral illness (Acute) Vertigo (Acute) Hyperlipidemia (Acute) Severe obstructive sleep apnea (Acute) Abnormal mammogram of left breast (Acute) Afib (Acute) Abnormal MRI, breast (Acute) Sore throat (Acute) Screening for breast cancer (Acute) Preop cardiovascular exam (Acute) Persistent atrial fibrillation (Acute) Screening for tuberculosis (Acute) Right wrist pain (Acute) Right arm pain (Acute) Right shoulder strain (Acute) Sleep apnea (Acute) Right knee pain (Acute) Depression with anxiety (Acute) Essential hypertension (Acute) Bradycardia (Acute) Vitamin D deficiency (Acute) Elevated fasting blood sugar (Acute) Vitamin D deficiency (Acute) Laboratory examination ordered as part of a routine general medical examination (Acute) Pure hypercholesterolemia (Acute) Breast cancer screening by mammogram (Acute) Screening for colon cancer (Acute) Screening for osteoporosis (Acute) Immunization counseling (Acute) Adult general medical exam (Acute) Atypical ductal hyperplasia of breast (Acute) Sick sinus syndrome (Acute) At high risk for breast cancer (Acute) Family history of breast cancer (Acute) Past Medical History Medical History History of kidney stones HTN (hypertension) Afib Sick sinus syndrome Cholecystectomy planned At high risk for breast cancer Family history of breast cancer Paroxysmal A-fib Family History Family History Sister Colon cancer Heart failure Mother Colon cancer HTN (hypertension) Father Sister Breast cancer Colon cancer Sister Breast cancer Brother No problems noted. Brother No problems noted. Brother No problems noted. Daughter No problems noted. Family history of problems with anesthesia: No Surgical History Surgical History H/O colonoscopy H/O bilateral mastectomy History of cholecystectomy History of shoulder surgery History of surgery History of breast biopsy H/O section History of Problems with Anesthesia: No Social History Social History Household Members: None Housing: House Are you a primary manager primary care to a significant other at home: No Do you presently have visiting nurse or other home services: No Alcohol intake: former Patient Tobacco Use Status: Former Tobacco user e-Cigarette/Vaping Use: Never Used Second Hand Smoke Exposure: No Use of substances other than those prescribed or required for medical reasons: No Are you DNR?: No Advance Directives: No Advance Directives Information Provided: Yes Advance Directives on File: No service: No Current occupational status: retired Current occupational exposures/hazards: No Cognitive needs: No Hearing needs: No Vision needs: Yes (Glasses) Meds Allergies Allergy/AdvReac Type Severity Reaction Status Date / Time oxycodone Allergy Severe Hives Verified 09/20/23 12:36 tramadol Allergy Severe Hives Verified 09/20/23 12:36 meperidine [From DEMEROL] Allergy Intermediate RASH Verified 09/20/23 12:36 bee venom protein (honey bee) Allergy Mild Swelling Verified 09/20/23 12:36 Home Medications Medication Instructions Recorded Confirmed Last Taken Type epinephrine 0.3 mg/0.3 mL 0.3 mg IM Q4H PRN Allergy Symptoms 01/15/23 08/27/23 Unknown History injection, auto-injector Exam Pertinent Lab Results Pertinent Lab Results: Laboratory Tests 04/04/23 08/24/23 09:51 09:40 WBC 5.1 RBC 4.95 Hgb 14.2 Hct 44.5 Plt Count 252 Sodium 142 Potassium 4.4 Chloride 106 Carbon Dioxide 26 BUN 16 Creatinine 0.93 Narrative Narrative: EKG 08/2023 atrial fibrillation with nonspecific ST T wave changes with heart rate of 97 beats per minute ECHO 2021 Conclusions: - 1. Technically limited study despite use of contrast 2. Normal LV systolic function with LVEF of 65-70% 3. Mildly dilated left atrium 4. Limited visualization with of cardiac valves with normal cardiac valvular Dopplers 5. Trivial pericardial effusion Assessment and Plan Assessment Anesthesia Assessment: Chart Reviewed Final Anesthetic Review Family History of Problems with Anesthesia: No History of Problems with Anesthesia: No Documented by User: Shima Grady MD 10/07/23 08:48 PMFSH Past Medical History Medical History History of kidney stones HTN (hypertension) Afib Sick sinus syndrome Cholecystectomy planned At high risk for breast cancer Family history of breast cancer Paroxysmal A-fib Family History Family History Sister Colon cancer Heart failure Mother Colon cancer HTN (hypertension) Father Sister Breast cancer Colon cancer Sister Breast cancer Brother No problems noted. Brother No problems noted. Brother No problems noted. Daughter No problems noted. Surgical History Surgical History H/O colonoscopy H/O bilateral mastectomy History of cholecystectomy History of shoulder surgery History of surgery History of breast biopsy H/O section Social History Social History Household Members: None Housing: House Are you a primary manager primary care to a significant other at home: No Do you presently have visiting nurse or other home services: No Alcohol intake: former Patient Tobacco Use Status: Former Tobacco user e-Cigarette/Vaping Use: Never Used Second Hand Smoke Exposure: No Use of substances other than those prescribed or required for medical reasons: No Are you DNR?: No Advance Directives: No Advance Directives Information Provided: Yes Advance Directives on File: No service: No Current occupational status: retired Current occupational exposures/hazards: No Cognitive needs: No Hearing needs: No Vision needs: Yes (Glasses) Meds Allergies Allergy/AdvReac Type Severity Reaction Status Date / Time oxycodone Allergy Severe Hives Verified 09/20/23 12:36 tramadol Allergy Severe Hives Verified 09/20/23 12:36 meperidine [From DEMEROL] Allergy Intermediate RASH Verified 09/20/23 12:36 bee venom protein (honey bee) Allergy Mild Swelling Verified 09/20/23 12:36 Home Medications Medication Instructions Recorded Confirmed Last Taken Type epinephrine 0.3 mg/0.3 mL 0.3 mg IM Q4H PRN Allergy Symptoms 01/15/23 08/27/23 Unknown History injection, auto-injector Exam Airway Mallampati Class: III TM Dist: >3cm Neck ROM: Limited Heart: a fib Lungs: cta Assessment and Plan Assessment Anesthesia Assessment: Anesthesia Plan Discussed Final Anesthetic Review NPO: Yes ASA Class: III Final Preanesthetic Review: No Changes in Pt Med Stat, Meds/Allgs Chart Reviewed, Consent Obtained/Reviewed and Anes Risks/Benef Reviewed Patient Risk: Intermediate Procedure Risk: Low Anesthetic Plan Anesthetic Plan: MAC: Disposition: Standard PACU (ptnever filled script for semiglutide )
[2023-10-07 08:29] VITALS: BMI 42.9
[2023-10-07 08:56] VITALS: BP 131/85; PULSE 108; RESP 12; TEMP 36.8; O2SAT 96
[2023-10-07] MEDS: Lactated Ringers 1,000 ML 100 ML IVCONT (08:59)
[2023-10-07 10:03] VITALS: BP 111/72; PULSE 109; RESP 16; TEMP 37.2; O2SAT 96
--- NOTE | 2023-10-07 10:08 | PM.OP ---
Brief Operative Note Date of Service: 10/07/23 Pre-op diagnosis: Screening Post-op diagnosis: other (Polyp) Procedure: Colonoscopy to the cecum with hot snare polypectomy of TC polyp and placement of 2 clips Surgeon: Miguel Fisher MD Anesthesia: MAC Was an [employer]rib[employer] Professor used for this Procedure?: No Estimated blood loss (mL): 0 Pathology: other (A. Transverse colon polyp) Condition: stable Disposition: PACU
[2023-10-07 10:18] VITALS: BP 126/86; PULSE 84; RESP 16; TEMP 36.6; O2SAT 99
--- NOTE | 2023-10-07 11:35 | OP_ITS ---
DATE OF SERVICE: 10/07/2023 SURGEON: Miguel Fisher MD INDICATIONS: The patient presents for followup of personal history of tubular adenomas of the colon, family history of colon cancer, and colorectal cancer screening. Full consent has been obtained from her for this, including risks of bleeding and perforation. PREOPERATIVE DIAGNOSIS: POSTOPERATIVE DIAGNOSIS: PROCEDURE PERFORMED: Colonoscopy to the cecum with hot snare polypectomy x1 and placement of 2 Resolution clips. ESTIMATED BLOOD LOSS: COMPLICATIONS: ANESTHESIA: Monitored anesthesia care. ASSISTANTS: SPECIMENS: PREOPERATIVE DIAGNOSES: Colorectal cancer screening, personal history of tubular adenomas of the colon, family history of colon cancer. Colorectal cancer screening, personal history of tubular adenomas of the colon, family history of colon cancer, colon polyp, diverticulosis and internal hemorrhoids. DESCRIPTION OF PROCEDURE: The patient was placed in the left lateral decubitus position. The digital rectal exam revealed no abnormalities. The Olympus video pediatric colonoscope was entered into the rectum and advanced to the cecum. Once in the cecum, I did identify normal-appearing cecal pouch with appendiceal orifice and a normal-appearing ileocecal valve. The entire cecum was well visualized and appeared normal. The ileocecal valve appeared normal. The scope was then slowly withdrawn, assessing all mucosal surfaces carefully. Preparation was excellent. In the transverse colon was an approximately 8 mm slightly raised polyp, which was removed by hot snare polypectomy and recovered by suction. The polypectomy site appeared clean, without any sign of residual polyp nor bleeding. Two Resolution clips were placed with good deployment and good hemostasis. I did not visualize any other polyps, colitis, nor angiodysplasia. There was a mild amount of diverticulosis in the ascending colon and a moderate amount of diverticulosis in the sigmoid colon. In the rectum, scope was retroflexed visualizing internal hemorrhoids, but no other pathology. The rectal mucosa appeared normal. The scope was straightened and withdrawn from the patient. She tolerated the procedure well and was returned to the recovery area in stable condition. IMPRESSION: 1. Colon polyp. 2. Diverticulosis. 3. Internal hemorrhoids. PLAN: Given her previous history and family history, I would recommend a followup coloscopy in 5 years for further screening. She was advised to resume her Xarelto on Saturday, October 09, and to not use aspirin or NSAIDs for at least 1 week. She will otherwise see me on a p.r.n. basis. MD ELMIRA Liu/OJ / [phone]
== END 2023-10-07 10:46 | disposition home or self-care (01) ==
PROVIDERS: PCP Family Medicine; Visit Provider Internal Medicine
PROC: 0DJD8ZZ Inspection of Lower Intestinal Tract, Via Natural or Artificial Opening Endoscopic (ICD-10-PCS; CPT 45378; principal; 2023-10-07 09:40)
DX: Z12.11 Encounter for screening for malignant neoplasm of colon (principal); D12.3 Benign neoplasm of transverse colon; K57.30 Diverticulosis of large intestine without perforation or abscess without bleeding; K64.8 Other hemorrhoids; Z86.010 Personal history of colon polyps; Z80.0 Family history of malignant neoplasm of digestive organs; I10 Essential (primary) hypertension; E78.00 Pure hypercholesterolemia, unspecified; I48.0 Paroxysmal atrial fibrillation
CPT/HCPCS: 45385; 88305; J2704

== ENCOUNTER 2023-11-02 10:28 | Outpatient (REF) | payer MEDICARE, SELFPAY ==
--- NOTE | ~2023-11-02 | XR_ITS ---
EXAMINATION: XR KNEE, LEFT CLINICAL INFORMATION: Pain COMPARISON: None available. TECHNIQUE: Four views of the left knee. FINDINGS: Small nonspecific effusion. Generalized spurring. No deformity. No radiopaque loose body. XR/XR knee LT 4V IMPRESSION: Small nonspecific effusion. No fracture. If internal derangement is suspected consider MRI.
== END 2023-11-02 10:29 | disposition home or self-care (01) ==
LOC: HO.XRAY 10:28
PROVIDERS: PCP Family Medicine; Visit Provider Family Medicine
DX: M25.562 Pain in left knee (principal)
CPT/HCPCS: 73564

== ENCOUNTER 2023-11-04 13:41 | Outpatient (AMB) | payer MEDICARE, SELFPAY ==
--- NOTE | 2023-11-04 13:45 | MHC.PC.OV ---
Vital Signs 11/04/23 13:46 Height 5 ft 8.25 in BMI Reason not done Patient refused/unable BP 138/72 Blood Pressure Location Lt brachial Position Sitting Pulse 83 Pulse Source Pulse Oximeter Pulse Oximetry (%) 97 Oxygen Delivery Method Room Air Intake Visit Reasons: Knee Clicking/ Pain Intake Note: Patient is here to follow up on left knee, with x-ray. Allergies oxycodone Allergy (Severe, Verified 11/04/23 13:51) Hives tramadol Allergy (Severe, Verified 11/04/23 13:51) Hives meperidine [From DEMEROL] Allergy (Intermediate, Verified 11/04/23 13:51) RASH bee venom protein (honey bee) Allergy (Mild, Verified 11/04/23 13:51) Swelling Tobacco use date assessed: 11/04/23 Fall risk assessment: 1 Fall in past year Last assessed Fall Risk: 11/04/23 HPI Knee Clicking/ Pain HPI Details 68 y/o female presents with complaints of knee pain. L knee x-ray 11/02/23 shows small nonspecific effusion, no fracture. Pt notes clicking of the knee. She has been using tylenol and ice for relief. [facility] Medical History History of kidney stones HTN (hypertension) Afib Sick sinus syndrome Cholecystectomy planned At high risk for breast cancer Family history of breast cancer Paroxysmal A-fib Surgical History H/O colonoscopy H/O bilateral mastectomy History of cholecystectomy History of shoulder surgery History of surgery History of breast biopsy H/O section Family History Sister Colon cancer Heart failure Mother Colon cancer HTN (hypertension) Father Sister Breast cancer Colon cancer Sister Breast cancer Brother No problems noted. Brother No problems noted. Brother No problems noted. Daughter No problems noted. Social History Household Members: None Housing: House Are you a primary field care advocate to a significant other at home: No Do you presently have visiting nurse or other home services: No Alcohol intake: former Patient Tobacco Use Status: Former Tobacco user e-Cigarette/Vaping Use: Never Used Second Hand Smoke Exposure: No service: No Current occupational status: retired Current occupational exposures/hazards: No Cognitive needs: No Hearing needs: No Vision needs: Yes (Glasses) Questionnaire Thrive Questionnaire Date Thrive assessed: 10/08/22 EVERETTE-7 AMB Questionnaire EVERETTE-7 Date EVERETTE - 7 assessed: 10/08/22 Source: Developed by Drs. Miguel Lynne, Romi Dominguez, Florentino Holcomb and colleagues, with an educational graham from [employer]. Review of Systems Musc Details: L knee pain Physical exam (Primary Care) Vital Signs: Last Vital Signs Pulse 83 11/04/23 13:46 BP 138/72 11/04/23 13:46 Pulse Ox 97 11/04/23 13:46 Oxygen Delivery Method Room Air 11/04/23 13:46 Tobacco/Smoking Status: Tobacco use Status Tobacco use date assessed 11/04/23 11/04/23 13:52 Patient Tobacco Use Status Former Tobacco user 11/04/23 13:52 e-Cigarette/Vaping Use Never Used 11/04/23 13:52 Thrive Assessment: Date of Thrive Assessment Date Thrive assessed 10/08/22 11/04/23 13:52 Assessment and Plan Assessment & Plan (1) Left knee pain: Code(s): M25.562 - Pain in left knee Plan: Likely?MCL?strain?with?mild?effusion?seen?on?x-ray. Recommended?relative?rest?for?couple?of?days Elevate?knee,?ice/heat Topical?steroids-can?not?take?oral?steroids?due?to?Xarelto Will?give?her?a?knee?brace?which?she?can?use?when?she?needs?to?walk?longer?distances?or?be?on?her?feet.??Otherwise?take?knee?brace?off. Patient?would?like?a?referral?to?Ortho. She?can?cancel?this?if?conservative?care?above?is?working. (2) MCL sprain of left knee: Code(s): S83.412A - Sprain of medial collateral ligament of left knee, initial encounter Plan: As above Orders: Referrals Orthopedics Referral M25.562 - Pain in left knee Coding Level of Care Code Est Pt Level 3 (15696) Diagnoses Left knee pain M25.562 MCL sprain of left knee S83.412A
[2023-11-04 13:46] VITALS: BP 138/72; PULSE 83; O2SAT 97
== END 2023-11-04 15:29 | disposition home or self-care (01) ==
PROVIDERS: PCP Family Medicine; Visit Provider Family Medicine
DX: M25.562 Pain in left knee (principal); S83.412A Sprain of medial collateral ligament of left knee, initial encounter
CPT/HCPCS: 99213

== ENCOUNTER 2023-11-25 13:22 | Outpatient (AMB) | payer MEDICARE, SELFPAY ==
--- NOTE | 2023-11-25 13:29 | A.OFFVIS_ITS ---
Intake Vital Signs 11/25/23 13:39 Height 5 ft 7 in Weight 296 lb 2 oz BMI 46.4 BP 124/82 Blood Pressure Location Lt brachial Position Sitting Pulse 85 Pulse Source Pulse Oximeter Pulse Oximetry (%) 96 Oxygen Delivery Method Room Air Intake Visit Reasons: Per Ins needs f/u 30 days after CPAP rcvd Intake Note: Patient presents for f/u. Allergies oxycodone Allergy (Severe, Verified 11/25/23 13:34) Hives tramadol Allergy (Severe, Verified 11/25/23 13:34) Hives meperidine [From DEMEROL] Allergy (Intermediate, Verified 11/25/23 13:34) RASH bee venom protein (honey bee) Allergy (Mild, Verified 11/25/23 13:34) Swelling HPI HPI Comments History of Present Illness Details 68-yr-old female presents for new in-per son patient visit for follow up of GINETTE on CPAP. The PSG sleep study result was significant for severe degree of sleep apnea. The AHI was 56/hr and oxygen brooks was 84%. Pt was recommended to use CPAP at [id number]. The recent CPAP compliance and therapy response is not available. Contact [facility] [employer] multiple times to get recent compliance, but never called back or send the recent compliance. Pt got a letter from [employer] requesting for follow up office note for supplies. Pt reports she sleeps well with CPAP, rested and her sleep quality has improved. Also daytime sleepiness has improved, a lot. The letter from [facility] indicates that per record, patient have reached the usage requirements of 70% or higher on the PAP device. [facility] Medical History (Reviewed 11/04/23 @ 13:53 by Eve Venegas [facility]) History of kidney stones HTN (hypertension) Afib Sick sinus syndrome Cholecystectomy planned At high risk for breast cancer Family history of breast cancer Paroxysmal A-fib Surgical History H/O colonoscopy H/O bilateral mastectomy History of cholecystectomy History of shoulder surgery History of surgery History of breast biopsy H/O section Family History Sister Colon cancer Mother Colon cancer HTN (hypertension) Father Sister Breast cancer Heart failure Sister Breast cancer Brother No problems noted. Brother No problems noted. Brother No problems noted. Daughter No problems noted. Social History Household Members: None Housing: House Are you a primary housekeeper child care to a significant other at home: No Do you presently have visiting nurse or other home services: No Alcohol intake: former Patient Tobacco Use Status: Former Tobacco user e-Cigarette/Vaping Use: Never Used Second Hand Smoke Exposure: No service: No Current occupational status: retired Current occupational exposures/hazards: No Cognitive needs: No Hearing needs: No Vision needs: Yes (Glasses) Review of Systems Const All systems reviewed & are unremarkable except as noted in HPI and below Physical Exam Vital Signs: Last Vital Signs Pulse 85 11/25/23 13:39 BP 124/82 11/25/23 13:39 Pulse Ox 96 11/25/23 13:39 Oxygen Delivery Method Room Air 11/25/23 13:39 BMI result Body Mass Index 46.4 Const General: no acute distress Orientation/consciousness: patient oriented x3 HEENT Other: Mallampati stage 4 Resp Effort & Inspection: normal respiratory effort and able to speak in complete sentences Cardio Rate: regular rate Rhythm: regular rhythm Neuro General: patient oriented x3 Psych Mental Status: mental status grossly normal Speech and movement: Clear speech present Attitude: cooperative Assessment & Plan Assessment & Plan (1) Severe obstructive sleep apnea: Comment: The AHI was 56/hr and oxygen brooks was 84%. Code(s): G47.33 - Obstructive sleep apnea (adult) (pediatric) Plan Advised patient to continue to use CPAP at [id number] as patient experiences good clinical effects, sleep breathing disorder has treated, having good quality sleep with daytime sleepiness has resolved. Stressed CPAP compliance, use CPAP nightly and more than 4 hrs. Wt reduction advised. New CPAP supply prescription sent to [facility] with the office visit note. Coding Level of Care Code Est Pt Level 3 (06475) Diagnoses Severe obstructive sleep apnea G47.33
[2023-11-25 13:39] VITALS: BP 124/82; PULSE 85; O2SAT 96; BMI 46.4
== END 2023-11-25 14:01 | disposition home or self-care (01) ==
PROVIDERS: PCP Family Medicine; Visit Provider Nurse Practitioner Family
DX: G47.33 Obstructive sleep apnea (adult) (pediatric) (principal)
CPT/HCPCS: 99213

== ENCOUNTER → 2023-11-25 13:22 | Outpatient (BNVA) | payer MEDICARE, SELFPAY | PROVIDERS: PCP Family Medicine; Visit Provider Nurse Practitioner Family | DX: G47.33 Obstructive sleep apnea (adult) (pediatric) (principal) | CPT/HCPCS: 99212 ==

== ENCOUNTER 2023-12-03 13:48 | Outpatient (AMB) | payer MEDICARE, SELFPAY ==
[2023-12-03 13:53] VITALS: BMI 46.4
--- NOTE | 2023-12-03 13:53 | A.OFFVIS_ITS ---
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 The patient states that she injured her left knee several months ago when she hit it directly on a shopping cart. She has had injections in the past which gave her minimal relief. She has also been wearing a knee brace which gives only mild relief. She has taken Tylenol which gives her min imal relief. She is not able to take anti-inflammatory medicines because she is on Xarelto for treatment of her atrial fibrillation. Allergies oxycodone Allergy (Severe, Verified 12/03/23 14:02) Hives tramadol Allergy (Severe, Verified 12/03/23 14:02) Hives meperidine [From DEMEROL] Allergy (Intermediate, Verified 12/03/23 14:02) RASH bee venom protein (honey bee) Allergy (Mild, Verified 12/03/23 14:02) Swelling Medication List - Last Reconciled 12/03/23 by Alberto Meza MD atorvastatin 10 mg PO DAILY 90 days bupropion HCl 75 mg PO BID 90 days diltiazem HCl (Cardizem CD) 180 mg PO DAILY epinephrine 0.3 mg IM Q4H PRN rivaroxaban (Xarelto) 20 mg PO DAILY semaglutide (weight loss) (Wegovy) 0.25 mg (0.5 mL) subcut QWEEK 28 days PFSH Medical History History of kidney stones HTN (hypertension) Afib Sick sinus syndrome Cholecystectomy planned At high risk for breast cancer Family history of breast cancer Paroxysmal A-fib Surgical History H/O colonoscopy H/O bilateral mastectomy History of cholecystectomy History of shoulder surgery History of surgery History of breast biopsy H/O section Family History Sister Colon cancer Mother Colon cancer HTN (hypertension) Father Sister Breast cancer Heart failure Sister Breast cancer Brother No problems noted. Brother No problems noted. Brother No problems noted. Daughter No problems noted. Social History (Updated 12/03/23 @ 14:03 by Negar Aguila CMA) Household Members: None Housing: House Are you a primary vocational childcare teacher to a significant other at home: No Do you presently have visiting nurse or other home services: No Alcohol intake: former Patient Tobacco Use Status: Former Tobacco user e-Cigarette/Vaping Use: Never Used Second Hand Smoke Exposure: No service: No Current occupational status: retired Current occupation: Right hand dominate Current occupational exposures/hazards: No Cognitive needs: No Hearing needs: No Vision needs: Yes (Glasses) Physical Exam Vital Signs: BMI result Body Mass Index 46.4 Const Other: Well-nourished well-developed very friendly female awake alert and oriented x3 in no acute distress Extrem Other: Bilateral lower extremity examination shows good capillary refill, no skin lesions noted, normal sensation light touch Left knee examination shows a minimal effusion, mild crepitus with range of motion, tenderness along her medial joint line, positive Fernandez's test, no instability Results Reviewed Results Reviewed: X-rays of the patient's left knee show mild to moderate joint space narrowing most significant in the patellofemoral joint, no acute bony abnormalities Assessment & Plan Assessment & Plan (1) Left knee pain: Code(s): M25.562 - Pain in left knee Plan Ms. Marie presents with left knee pain and mechanical symptoms due to early degenerative joint disease as well as possible tearing of her medial meniscus. Thus, I will send the patient for an MRI of her left knee for further evaluation. I will see her back once the MRI is completed to discuss the findings and treatment options. I also gave her a prescription for tramadol to take at night. The patient states that she does not have any negative reaction from the tramadol when she takes it just once daily. The patient will contact me prior to her follow-up appointment should any questions or concerns arise. Feel free to call me at any time should questions regarding her orthopedic management arise. Thank you very much for asking me to see this very friendly patient. I spent 22 minutes in reviewing the patient's records and imaging studies, seeing the patient and documenting in the medical record. Orders: Orders MR knee LT wo con Today S83.242A - Other tear of medial meniscus, current injury, left knee, initial encounter Medications: New tramadol 50 mg PO DAILY PRN 30 tabs 0RF pain Coding Level of Care Code New Pt Level 2 (05540) Diagnoses Left knee pain M25.562
== END 2023-12-03 14:27 | disposition home or self-care (01) ==
PROVIDERS: PCP Family Medicine; Visit Provider Orthopaedic Surgery
DX: M25.562 Pain in left knee (principal)
CPT/HCPCS: 99202

== ENCOUNTER → 2023-12-03 13:48 | Outpatient (BNVA) | payer MEDICARE, SELFPAY | PROVIDERS: PCP Family Medicine; Visit Provider Orthopaedic Surgery | DX: M25.562 Pain in left knee (principal) | CPT/HCPCS: 99202 ==

== ENCOUNTER 2024-01-31 09:22 | Outpatient (AMB) | payer MEDICARE, SELFPAY ==
--- NOTE | 2024-01-31 09:43 | MHC.PC.OV ---
Vital Signs 01/31/24 09:52 BMI Reason not done Patient refused/unable BP 129/86 Blood Pressure Location Rt brachial Position Sitting Respiration 16 Temp 98.3 F Temp Source Oral Pulse Oximetry (%) 97 Oxygen Delivery Method Room Air Intake Visit Reasons: Pt is sick sore throat Intake Note: Sore throat, cough. Had knee surgery last Saturday. Home covid test Saturday negative. Cooler Servicer Required: No Allergies oxycodone Allergy (Severe, Verified 12/03/23 14:02) Hives tramadol Allergy (Severe, Verified 12/03/23 14:02) Hives meperidine [From DEMEROL] Allergy (Intermediate, Verified 12/03/23 14:02) RASH bee venom protein (honey bee) Allergy (Mild, Verified 12/03/23 14:02) Swelling Tobacco use date assessed: 11/04/23 Dental Screening Dental Screen Date: 05/23/23 HPI HPI Comments History of Present Illness Details 68 year old female with a past medical history of breast cancer, afib, htn presenting for sore throat Patient had meniscal surgery 8 days ago. The day after the procedure the patient started to experience a sore throat. At that time she also had a temp 99s, sinus congestion and minimal cough. The elevated temp, sinus symptoms have resolved. Sore throat and wheeze/cough have persisted. The sore throat feels deep, into the chest, with intermittent wheeze. PFS Medical History History of kidney stones HTN (hypertension) Afib Sick sinus syndrome Cholecystectomy planned At high risk for breast cancer Family history of breast cancer Paroxysmal A-fib Surgical History H/O colonoscopy H/O bilateral mastectomy History of cholecystectomy History of shoulder surgery History of surgery History of breast biopsy H/O section Family History Sister Colon cancer Mother Colon cancer HTN (hypertension) Father Sister Breast cancer Heart failure Sister Breast cancer Brother No problems noted. Brother No problems noted. Brother No problems noted. Daughter No problems noted. Social History (Updated 12/03/23 @ 14:03 by Negar Aguila CMA) Household Members: None Housing: House Are you a primary medicare contact specialist to a significant other at home: No Do you presently have visiting nurse or other home services: No Alcohol intake: former Patient Tobacco Use Status: Former Tobacco user e-Cigarette/Vaping Use: Never Used Second Hand Smoke Exposure: No service: No Current occupational status: retired Current occupation: Right hand dominate Current occupational exposures/hazards: No Cognitive needs: No Hearing needs: No Vision needs: Yes (Glasses) Questionnaire Thrive Questionnaire Date Thrive assessed: 10/08/22 EVERETTE-7 AMB Questionnaire EVERETTE-7 Date EVERETTE - 7 assessed: 10/08/22 Source: Developed by Drs. Miguel Lynne, Romi Dominguez, Florentino Holcomb and colleagues, with an educational graham from [employer]. Review of Systems Const Details: see HPI Physical exam (Primary Care) Vital Signs: Last Vital Signs Temp 98.3 F 01/31/24 09:52 Resp 16 01/31/24 09:52 BP 129/86 01/31/24 09:52 Pulse Ox 97 01/31/24 09:52 Oxygen Delivery Method Room Air 01/31/24 09:52 Tobacco/Smoking Status: Tobacco use Status Tobacco use date assessed 11/04/23 01/31/24 09:46 Patient Tobacco Use Status Former Tobacco user 01/31/24 09:46 e-Cigarette/Vaping Use Never Used 01/31/24 09:46 Thrive Assessment: Date of Thrive Assessment Date Thrive assessed 10/08/22 01/31/24 09:46 Const Other: PHYSICAL EXAM: GENERAL: Alert and oriented x 3. NAD EYES: EOMI. Anicteric. HENT: Moist mucous membranes. No scleral icterus. No cervical lymphadenopathy. LUNGS: Scattered rhonci ant CARDIOVASCULAR: Regular rate and rhythm. No murmur. No JVD. ABDOMEN: Soft, non-tender +bs EXTREMITIES: No edema. Non-tender. SKIN: No rashes or lesions. Warm. NEUROLOGIC: No focal neurological deficits. CN II-XII grossly intact PSYCHIATRIC: Cooperative. Appropriate mood and affect Results AMB Rapid Strep AMB Rapid Strep Negative Last Edit by Ruthie Ramos CMA on 01/31/24 10:55 Results Reviewed Results Reviewed: Laboratory Last Values Strep Scn Rapid Clinic Negative 01/31/24 09:59 Assessment and Plan Assessment & Plan (1) Sore throat: Comment: Bronchitis/RAD-Prednisone and azithromycin sent. Albuterol prn. Code(s): J02.9 - Acute pharyngitis, unspecified (2) Persistent atrial fibrillation: Code(s): I48.19 - Other persistent atrial fibrillation (3) Atypical ductal hyperplasia of breast: Comment: continue follow up heme/onc Code(s): N60.99 - Unspecified benign mammary dysplasia of unspecified breast Orders: Orders AMB Rapid Strep Screen Today J02.9 - Acute pharyngitis, unspecified Medications: New prednisone 40 mg (2 x 20 mg) PO DAILY 10 tabs 0RF 5 days albuterol sulfate 90 mcg/actuation 2 puffs inhalation Q4H PRN 8.5 grams 1RF shortness of breath or wheezing azithromycin For 250 mg dose pack: take 500 mg today (day 1), then 250 mg for 4 days (days 2-5) PO 6 tabs 0RF Coding Level of Care Code Est Pt Level 4 (49628) Diagnoses Sore throat J02.9 Persistent atrial fibrillation I48.19 Atypical ductal hyperplasia of breast N60.99
[2024-01-31 09:52] VITALS: BP 129/86; RESP 16; TEMP 36.8; O2SAT 97
== END 2024-01-31 13:46 | disposition home or self-care (01) ==
PROVIDERS: PCP Family Medicine; Visit Provider Internal Medicine
DX: J02.9 Acute pharyngitis, unspecified (principal); I48.19 Other persistent atrial fibrillation; N60.99 Unspecified benign mammary dysplasia of unspecified breast
CPT/HCPCS: 87880; 99214

== ENCOUNTER 2024-02-19 11:38 | Outpatient (AMB) | payer MEDICARE, SELFPAY ==
[2024-02-19 11:44] VITALS: BP 126/72; PULSE 96; O2SAT 96; BMI 43.8
--- NOTE | 2024-02-19 11:44 | MHC.PC.OV ---
Vital Signs 02/19/24 11:44 Height 5 ft 7 in Weight 280 lb BMI 43.8 BP 126/72 Blood Pressure Location Lt brachial Position Sitting Pulse 96 Pulse Source Pulse Oximeter Pulse Oximetry (%) 96 Oxygen Delivery Method Room Air Intake Visit Reasons: Follow up HTN Intake Note: Patient is here with hypertension follow up. Allergies oxycodone Allergy (Severe, Verified 02/19/24 11:46) Hives tramadol Allergy (Severe, Verified 02/19/24 11:46) Hives meperidine [From DEMEROL] Allergy (Intermediate, Verified 02/19/24 11:46) RASH bee venom protein (honey bee) Allergy (Mild, Verified 02/19/24 11:46) Swelling Medication List - Last Reconciled 02/19/24 by He Mei MD albuterol sulfate 90 mcg/actuation 2 puffs inhalation Q4H PRN atorvastatin 10 mg PO DAILY 90 days azithromycin For 250 mg dose pack: take 500 mg today (day 1), then 250 mg for 4 days (days 2-5) PO bupropion HCl 75 mg PO BID 90 days diltiazem HCl CD (Cardizem CD) 180 mg PO DAILY epinephrine 0.3 mg IM Q4H PRN prednisone 40 mg (2 x 20 mg) PO DAILY 5 days rivaroxaban (Xarelto) 20 mg PO DAILY semaglutide (weight loss) (Wegovy) 0.25 mg (0.5 mL) subcut QWEEK 28 days tramadol 50 mg PO DAILY PRN Tobacco use date assessed: 11/04/23 Dental Screening Dental Screen Date: 05/23/23 HPI Follow up HTN HPI Details 68 y/o female presents to f/u hypertension. Blood pressure today 126/72. Pt reports recent viral illness and she notes this has been improving. Hx of pre-diabetes. A1c today 02/19/24 is PFSH Medical History (Updated 02/19/24 @ 12:45 by Ashutosh Yen) History of torn meniscus of left knee History of kidney stones HTN (hypertension) Afib Sick sinus syndrome Cholecystectomy planned At high risk for breast cancer Family history of breast cancer Paroxysmal A-fib Surgical History (Updated 02/19/24 @ 11:48 by Eve Venegas [facility]) H/O left knee surgery H/O colonoscopy H/O bilateral mastectomy History of cholecystectomy History of shoulder surgery History of surgery History of breast biopsy H/O section Family History Sister Colon cancer Mother Colon cancer HTN (hypertension) Father Sister Breast cancer Heart failure Sister Breast cancer Brother No problems noted. Brother No problems noted. Brother No problems noted. Daughter No problems noted. Social History (Updated 12/03/23 @ 14:03 by Negar Aguila PRODUCTION SUPPORT SUPERVISOR) Household Members: None Housing: House Are you a primary special needs child caregiver to a significant other at home: No Do you presently have visiting nurse or other home services: No Alcohol intake: former Patient Tobacco Use Status: Former Tobacco user e-Cigarette/Vaping Use: Never Used Second Hand Smoke Exposure: No service: No Current occupational status: retired Current occupation: Right hand dominate Current occupational exposures/hazards: No Cognitive needs: No Hearing needs: No Vision needs: Yes (Glasses) Questionnaire Thrive Questionnaire Date Thrive assessed: 10/08/22 EVERETTE-7 AMB Questionnaire EVERETTE-7 Date EVERETTE - 7 assessed: 10/08/22 Source: Developed by Drs. Miguel Lynne, Romi Dominguez, Florentino Holcomb and colleagues, with an educational graham from [employer]. Review of Systems Const Denies chills, Denies fatigue, Denies fever(s), Denies headache(s) and Denies weakness ENT Denies dizziness and Denies headache(s) Card Denies chest pain, Denies lightheadedness, Denies dyspnea and Denies other (Palpitations) Resp Denies cough, Denies dyspnea, Denies wheezing and Denies other ( shortness of breath) Musc Denies numbness and Denies tingling Neuro Denies dizziness, Denies headache(s), Denies numbness, Denies tingling, Denies paresthesias and Denies weakness Psych Denies anxiety and Denies depression Endo Denies fatigue Aller/Immun Denies wheezing Physical exam (Primary Care) Vital Signs: Last Vital Signs Pulse 96 02/19/24 11:44 BP 126/72 02/19/24 11:44 Pulse Ox 96 02/19/24 11:44 Oxygen Delivery Method Room Air 02/19/24 11:44 BMI result Body Mass Index 43.8 Tobacco/Smoking Status: Tobacco use Status Tobacco use date assessed 11/04/23 02/19/24 11:49 Patient Tobacco Use Status Former Tobacco user 02/19/24 11:49 e-Cigarette/Vaping Use Never Used 02/19/24 11:49 Thrive Assessment: Date of Thrive Assessment Date Thrive assessed 10/08/22 02/19/24 11:49 Const General: no acute distress and well developed Nutritional Appearance: well nourished and obese morbidly obese Orientation/consciousness: patient oriented x3 HENMT Head: Yes normocephalic and Yes atraumatic Eyes General: appearance normal, both eyes and all related structures Pupils: Equal, round and reactive pupils present EOM: EOMs intact bilaterally Resp Other: Coarse breath sounds, faint squeaking Effort & Inspection: normal respiratory effort Auscultation: not clear to auscultation bilaterally Cardio Rate: regular rate Rhythm: regular rhythm Heart sounds: S1 normal heart sound present, S2 normal heart sound present, no gallops, no murmurs and no rubs Neuro General: patient oriented x3 and gait normal Cranial nerves: Yes Equal, round and reactive pupils present Psych Affect: normal affect Results AMB Hemoglobin A1c AMB Hemoglobin A1c 5.8 % Last Edit by Eve Venegas CMA on 02/19/24 12:49 Assessment and Plan Assessment & Plan (1) Essential hypertension: Code(s): I10 - Essential (primary) hypertension Plan: Blood?pressure?is?controlled.??Goal?is?less?than?140/90 Continue?current?medication (2) Viral illness: Code(s): B34.9 - Viral infection, unspecified Plan: Recent?viral?illness?and?ongoing?cough. Coarse?breath?sounds?bilaterally?but?also?has?some?crackles?throughout?right?lung?bowser Check?chest?x-ray Gradually?improving Will?call?patient?if?x-ray?requires?action (3) Pre-diabetes: Code(s): R73.03 - Prediabetes Plan: A1c?5.8% Encouraged?diet?lower?in?sugars?and?starches (4) Abnormal lung sounds: Code(s): R09.89 - Other specified symptoms and signs involving the circulatory and respiratory systems Plan: As?above Orders: Orders AMB Hemoglobin A1c Today Z13.9 - Encounter for screening, unspecified Comprehensive Cherry. Panel Fast Today Z00.00 - Encounter for general adult medical examination without abnormal findings Complete Blood Count Auto Diff Today Z00.00 - Encounter for general adult medical examination without abnormal findings Insulin Today R73.01 - Impaired fasting glucose, R73.03 - Prediabetes Lipid Panel Today Z00.00 - Encounter for general adult medical examination without abnormal findings Microalbumin, Random (w Creat) Today I10 - Essential (primary) hypertension TSH reflex Free T4 Today Z00.00 - Encounter for general adult medical examination without abnormal findings UA and rflx microscopic Today Z00.00 - Encounter for general adult medical examination without abnormal findings XR chest 2V Today R05.9 - Cough, unspecified, R09.89 - Other specified symptoms and signs involving the circulatory and respiratory systems Coding Level of Care Code Est Pt Level 4 (49619) Diagnoses Essential hypertension I10 Viral illness B34.9 Pre-diabetes R73.03 Abnormal lung sounds R09.89
== END 2024-02-19 12:54 | disposition home or self-care (01) ==
PROVIDERS: PCP Family Medicine; Visit Provider Family Medicine
DX: I10 Essential (primary) hypertension (principal); B34.9 Viral infection, unspecified; R73.03 Prediabetes; R09.89 Other specified symptoms and signs involving the circulatory and respiratory systems
CPT/HCPCS: 83036; 99214

== ENCOUNTER 2024-02-19 13:23 | Outpatient (REF) | payer MEDICARE, SELFPAY ==
--- NOTE | ~2024-02-19 | XR_ITS ---
EXAMINATION: XR CHEST CLINICAL INFORMATION: Symptoms and signs involving the circulatory system COMPARISON: None available. TECHNIQUE: 2 views of the chest were obtained. FINDINGS: No significant abnormality is noted involving the heart, lungs, mediastinum, bony thorax or soft tissues. XR/XR chest 2V IMPRESSION: Unremarkable examination.
== END 2024-02-19 13:24 | disposition home or self-care (01) ==
LOC: HO.HMGCX 13:23
PROVIDERS: PCP Family Medicine; Visit Provider Family Medicine
DX: R09.89 Other specified symptoms and signs involving the circulatory and respiratory systems (principal); R05.9 Cough, unspecified
CPT/HCPCS: 71046

== ENCOUNTER 2024-06-06 08:57 | Outpatient (REF) | payer MEDICARE, SELFPAY ==
[2024-06-06 09:14] LABS: MANUAL DIFF FLAG NO
[2024-06-06 09:49] LABS: Basophils Percent Auto 0.7 % (0-2); Eosinophils Absolute Auto 0.1 X10*3/uL (0.0-0.4); Eosinophils Percent Auto 1.8 % (0-4); Hematocrit 45.5 % (37.0-47.0); Hemoglobin 15.2 g/dl (12.0-16.0); Imm Gran Abs Auto 0.02 X10*3/uL (0.00-0.03); Imm Gran Pct Auto 0.4 % (0.0-0.4); Lymphocytes Absolute Auto 1.4 X10*3/uL (1.2-4.9); Lymphocytes Percent Auto 24.5 % (20-40); Mean Corpuscular HGB Conc 33.4 g/dl (31.0-35.0); Mean Corpuscular Hemoglobin 29.5 pg (27.0-33.0); Mean Corpuscular Volume 88.3 fL (80.0-98.0); Mean Platelet Volume 9.5 fL (9.4-12.3); Monocytes Absolute Auto 0.4 X10*3/uL (0.1-1.2); Monocytes Percent Auto 6.9 % (2-11); Neutrophils Absolute Auto 3.7 x10*3/uL (2.0-8.3); Neutrophils Percent Auto 65.7 % (45-73); Platelet Count 286 X10*3/uL (160-400); Red Blood Count 5.15 X10*6/uL (4.20-5.50); Red Cell Distribution Width 13.3 % (11.0-16.0); White Blood Count 5.6 X10*3/uL (4.8-10.8)
[2024-06-06 09:53] LABS: Appearance Urine Cloudy; Color Urine Yellow; Glucose Urine UA Negative (Negative); Leukocyte Esterase Urine Large (3+) (Negative); Nitrite Urine Negative (Negative); PH 5.5 (5.0-9.0); Specific Gravity - Urine 1.015 (1.005-1.025); UMIC TRIGGER UA YES; Urine Blood Small (1+) (Negative); Urine Ketones Negative (Negative); Urine Protein Negative (Neg-Trace)
[2024-06-06 10:09] LABS: Bacteria Urine None Seen (None Seen); Hyaline Casts Urine 0-2 /LPF (0-2); WBC Urine >50 /HPF (0-5)
[2024-06-06 10:37] LABS: Alanine Aminotransferase 14 U/L (0-31); Alkaline Phosphatase 94 U/L (39-117); Anion Gap 12 (12-20); Aspartate Amino Transferase 12 U/L (5-31); Bilirubin Total 0.4 mg/dL (0.0-1.0); Blood Urea Nitrogen 17 mg/dL (9-16); Calcium 9.4 mg/dL (8.4-10.2); Carbon Dioxide 26 mmol/L (22-29); Chloride 105 mmol/L (96-108); Cholesterol 253 mg/dL (<200); Estimated Glomerular Filt Rate 48; Glucose Fasting 123 mg/dL (60-99); HDL Cholesterol 66 mg/dL (>40); LDL Cholesterol Calculated 167 mg/dL (<100); Potassium 4.3 mmol/L (3.3-5.1); Sodium 139 mmol/L (135-145); Total Protein 6.8 g/dL (6.5-8.0); Triglycerides 100 mg/dL (<150)
[2024-06-06 10:46] LABS: Creatinine Urine 125.29 mg/dL; Microalbum/Creatinine Ratio Ur 19.1 ug/mg cr (<30)
[2024-06-06 10:51] LABS: Insulin 15 uU/mL (2-29); TSH reflex Free T4 1.89 uIU/mL (0.32-4.0)
== END 2024-06-06 08:58 | disposition home or self-care (01) ==
LOC: HO.LAB 08:57
PROVIDERS: PCP Family Medicine; Visit Provider Family Medicine
DX: Z00.00 Encounter for general adult medical examination without abnormal findings (principal); R73.03 Prediabetes; R73.01 Impaired fasting glucose; I10 Essential (primary) hypertension
CPT/HCPCS: 36415; 80053; 80061; 81001; 82043; 82570; 83525; 84443; 85025

== ENCOUNTER 2024-06-12 15:51 | Outpatient (AMB) | payer MEDICARE, SELFPAY ==
--- NOTE | 2024-06-12 16:03 | A.OFFPC_ITS ---
Vital Signs 06/12/24 16:11 Height 5 ft 7 in Weight 296 lb 6 oz BMI 46.4 BP 126/68 Blood Pressure Location Rt brachial Position Sitting Respiration 16 Pulse 92 Pulse Source Pulse Oximeter Pulse Oximetry (%) 97 Oxygen Delivery Method Room Air Intake Visit Reasons: Medicare Wellness Intake Note: Medicare wellness Allergies oxycodone Allergy (Severe, Verified 06/12/24 16:04) Hives tramadol Allergy (Severe, Verified 06/12/24 16:04) Hives meperidine [From DEMEROL] Allergy (Intermediate, Verified 06/12/24 16:04) RASH bee venom protein (honey bee) Allergy (Mild, Verified 06/12/24 16:04) Swelling Medication List - Last Reconciled 06/12/24 by Giana Leone MD atorvastatin 10 mg PO DAILY 90 days bupropion HCl 75 mg PO BID 90 days cholecalciferol (vitamin D3) 25 mcg PO DAILY diltiazem HCl CD (Cardizem CD) 180 mg PO DAILY epinephrine 0.3 mg IM Q4H PRN multivitamin 1 tab PO DAILY rivaroxaban (Xarelto) 20 mg PO DAILY sulfamethoxazole-trimethoprim 800-160 mg (Bactrim DS) 1 tab PO Q12H Wegovy (semaglutide (weight loss)) 0.25 mg (0.5 mL) subcut QWEEK NS Tobacco use date assessed: 11/04/23 Dental Screening Dental Screen Date: 05/23/23 HPI HPI Comments History of Present Illness Details 68 year old female with a past medical h istory of breast cancer, atrial fibrillation, hypertension,depression presenting for [facility] PCP-Dr Mei Cardiology: Dr Rios carrier blower: Analisa Dill Heme/Onc/Breast: Dr Flores Gastro; Dr Fisher Ophtho: Dr Bunn Dentist: Dr Harvey MSK: Had meniscal surgery in January. Doing well Depression-bupropion 75mg twice daily. CV: Atrial fibrillation. Dr Rios. On diliazem, xarelto. She is currently holdin g her atorvastatin and plans to go back on a keto diet imminently Health Care Proxy: Daughter -she has a copy at home. No advance directive, living will-declines Rescuscitation: Full Code HRA reviewed and scanned. No issues identified. Mild depressive symptoms, fatigue following recent COVID Negative fall risk Independent in ADLS Medications reconciled PHQ9 reviewed Colonoscopy 10/07/2023 ROS CONSTITUTIONAL: Denies weight loss, fever and chills. HEENT: Denies changes in vision and hearing. RESPIRATORY: Denies SOB and cough. CV: Denies palpitations and CP GI: Denies abdominal pain, nausea, vomiting and diarrhea. : Intermittent flank discomfort MSK: Denies new myalgia and joint pain. SKIN: Denies rash and pruritus. NEUROLOGICAL: Denies headache PSYCHIATRIC: Denies recent changes in mood. PHYSICAL EXAM: GENERAL: Alert and oriented x 3. NAD EYES: EOMI. Anicteric. HENT: Moist mucous membranes. No scleral icterus. No cervical lymphadenopathy. LUNGS: Clear to auscultation bilaterally. CARDIOVASCULAR: Regular rate and rhythm. ABDOMEN: Soft, non-tender +bs EXTREMITIES: No edema. Non-tender. SKIN: No rashes or lesions. Warm. NEUROLOGIC: No focal neurological deficits. CN II-XII grossly intact PSYCHIATRIC: Cooperative. Appropriate mood and affect [facility] Medical History History of torn meniscus of left knee History of kidney stones HTN (hypertension) Afib Sick sinus syndrome Cholecystectomy planned At high risk for breast cancer Family history of breast cancer Paroxysmal A-fib Surgical History H/O left knee surgery H/O colonoscopy H/O bilateral mastectomy History of cholecystectomy History of shoulder surgery History of surgery History of breast biopsy H/O section Family History Sister Colon cancer Mother Colon cancer HTN (hypertension) Father Sister Breast cancer Heart failure Sister Breast cancer Brother No problems noted. Brother No problems noted. Brother No problems noted. Daughter No problems noted. Social History Household Members: None Housing: House Are you a primary lawn caretaker to a significant other at home: No Do you presently have visiting nurse or other home services: No Alcohol intake: former Patient Tobacco Use Status: Former Tobacco user e-Cigarette/Vaping Use: Never Used Second Hand Smoke Exposure: No service: No Current occupational status: retired Current occupation: Right hand dominate Current occupational exposures/hazards: No Cognitive needs: No Hearing needs: No Vision needs: Yes (Glasses) Questionnaire PHQ-9 Over the last 2 weeks, how often have you been bothered by any of the following problems? 1. Little interest or pleasure in doing things: several days 2. Feeling down, depressed, or hopeless: several days 3. Trouble falling or staying asleep, or sleeping too much: not at all 4. Feeling tired or having little energy: several days 5. Poor appetite or overeating: several days 6. Feeling bad about yourself - or that you are a failure or have let yourself or your family down: not at all 7. Trouble concentrating on things, such as reading the newspaper or watching television: not at all 8. Moving or speaking so slowly that other people could have noticed. Or the opposite - being so fidgety or restless that you have been moving around a lot more than usual: not at all 9. Thoughts that you would be better off or of hurting yourself in some way: not at all Total score: 4 Depression Screening Interpretation: Negative Depression Screening Done: Yes 70949 - PHQ-9 Billing: Patient declined-do not bill Source: Developed by Drs. Miguel Lynne, Romi Dominguez, Florentino Holcomb and colleagues, with an educational graham from [employer]. Thrive Questionnaire Date Thrive assessed: 10/08/22 AUDIT C Alcohol Use Questionnaire (AUDIT-C) 3. How often do you have six or more drinks on one occasion?: Never Total Score: 0 EVERETTE-7 AMB Questionnaire EVERETTE-7 Date EVERETTE - 7 assessed: 10/08/22 Source: Developed by Drs. Miguel Lynne, Florentino Valencia and colleagues, with an educational graham from [employer]. Physical exam (Primary Care) Vital Signs: Last Vital Signs Pulse 92 06/12/24 16:11 Resp 16 06/12/24 16:11 BP 126/68 06/12/24 16:11 Pulse Ox 97 06/12/24 16:11 Oxygen Delivery Method Room Air 06/12/24 16:11 BMI result Body Mass Index 46.4 Tobacco/Smoking Status: Tobacco use Status Tobacco use date assessed 11/04/23 06/12/24 16:12 Patient Tobacco Use Status Former Tobacco user 06/12/24 16:12 e-Cigarette/Vaping Use Never Used 06/12/24 16:12 Depression Screening Interpretation: Negative Thrive Assessment: Date of Thrive Assessment Date Thrive assessed 10/08/22 06/12/24 16:12 Assessment and Plan Assessment & Plan (1) Medicare annual wellness visit, subsequent: Code(s): Z00.00 - Encounter for general adult medical examination without abnormal findings Plan: Care team reviewed Meds reconciled PHQ9, HRA, ADLs reviewed Code status reviewed. (2) Pre-diabetes: Code(s): R73.03 - Prediabetes Plan: with obesity, htn. Wegovy ordered (3) Severe obstructive sleep apnea: Comment: The AHI was 56/hr and oxygen brooks was 84%. Code(s): G47.33 - Obstructive sleep apnea (adult) (pediatric) (4) Afib: Comment: status post cardioversion 07/26/2021. Maintain rhythm on flecainide 150 mg b.i.d. since then Code(s): I48.91 - Unspecified atrial fibrillation Qualifiers: Atrial fibrillation type: unspecified Qualified Code(s): I48.91 - Unspecified atrial fibrillation (5) UTI (urinary tract infection): Code(s): N39.0 - Urinary tract infection, site not specified Qualifiers: Urinary tract infection type: acute cystitis Hematuria presence: without hematuria Qualified Code(s): N30.00 - Acute cystitis without hematuria Plan: Bactrim sent. Culture sent Orders: Orders Urine Culture Today R82.90 - Unspecified abnormal findings in urine Medications: New sulfamethoxazole-trimethoprim 800-160 mg (Bactrim DS) 1 tab PO Q12H 14 tabs 0RF Wegovy (semaglutide (weight loss)) administer weeks 1 through 4 of therapy 0.25 mg (0.5 mL) subcut QWEEK 2 mL 0RF NS E66.01 - Morbid (severe) obesity due to excess calories, I10 - Essential (primary) hypertension, I48.91 - Unspecified atrial fibrillation Coding Level of Care Code Est Pt Level 4 (57792) Diagnoses Medicare annual wellness visit, subsequent Z00.00 Pre-diabetes R73.03 Severe obstructive sleep apnea G47.33 Atrial fibrillation, unspecified type I48.91 Atrial fibrillation type: unspecified Acute cystitis without hematuria N30.00 Urinary tract infection type: acute cystitis Hematuria presence: without hematuria Comment G0439 Meds Allergy/AdvReac Type Severity Reaction Status Date / Time oxycodone Allergy Severe Hives Verified 06/12/24 16:04 tramadol Allergy Severe Hives Verified 06/12/24 16:04 meperidine [From DEMEROL] Allergy Intermediate RASH Verified 06/12/24 16:04 bee venom protein (honey bee) Allergy Mild Swelling Verified 06/12/24 16:04 ?Medication ?Instructions ?Recorded ?Confirmed ?Last Taken ?Type epinephrine 0.3 mg/0.3 mL 0.3 mg IM Q4H PRN Allergy Symptoms 01/15/23 06/12/24 Unknown History injection, auto-injector cholecalciferol (vitamin D3) 25 25 mcg PO DAILY 06/12/24 06/12/24 Unknown History mcg (1,000 unit) capsule multivitamin 1 tab PO DAILY 06/12/24 06/12/24 Unknown History
[2024-06-12 16:11] VITALS: BP 126/68; PULSE 92; RESP 16; O2SAT 97; BMI 46.4
== END 2024-06-12 17:03 | disposition home or self-care (01) ==
PROVIDERS: PCP Family Medicine; Visit Provider Internal Medicine
DX: Z00.00 Encounter for general adult medical examination without abnormal findings (principal); R73.03 Prediabetes; G47.33 Obstructive sleep apnea (adult) (pediatric); I48.91 Unspecified atrial fibrillation; N30.00 Acute cystitis without hematuria

== ENCOUNTER → 2024-06-12 15:51 | Outpatient (BNVA) | payer MEDICARE, SELFPAY | PROVIDERS: PCP Family Medicine; Visit Provider Internal Medicine | DX: Z00.00 Encounter for general adult medical examination without abnormal findings (principal); I48.91 Unspecified atrial fibrillation; I10 Essential (primary) hypertension; R73.03 Prediabetes; G47.33 Obstructive sleep apnea (adult) (pediatric); N30.00 Acute cystitis without hematuria | CPT/HCPCS: 99212 ==

== ENCOUNTER 2024-06-12 16:55 | Outpatient (REF) | payer MEDICARE, SELFPAY | END 2024-06-12 16:56 | disposition home or self-care (01) | LOC: HO.LNP 16:55 | PROVIDERS: Referring Provider Family Medicine; Visit Provider Internal Medicine | DX: Z13.89 Encounter for screening for other disorder (principal) ==

== ENCOUNTER 2024-09-28 13:35 | Outpatient (AMB) | payer MEDICARE, SELFPAY ==
[2024-09-28 13:54] VITALS: BP 128/76; PULSE 95; BMI 46.2
--- NOTE | 2024-09-28 13:54 | A.OFFVIS_ITS ---
Vital Signs 09/28/24 13:54 Height 5 ft 7 in Weight 295 lb BMI 46.2 BP 128/76 Blood Pressure Location Lt brachial Position Sitting Pulse 95 Intake Visit Reasons: 1 yr f/up/-r/s 08/20 Intake Note: 1 year follow-up with ekg c/o heart racing Java Software Required: No Allergies oxycodone Allergy (Severe, Verified 06/12/24 16:04) Hives tramadol Allergy (Severe, Verified 06/12/24 16:04) Hives meperidine [From DEMEROL] Allergy (Intermediate, Verified 06/12/24 16:04) RASH bee venom protein (honey bee) Allergy (Mild, Verified 06/12/24 16:04) Swelling Medication List - Last Reconciled 09/28/24 by Chad Rios MD atorvastatin 10 mg PO DAILY 90 days bupropion HCl 75 mg PO BID 90 days cholecalciferol (vitamin D3) 25 mcg PO DAILY diltiazem HCl CD (Cardizem CD) 180 mg PO DAILY epinephrine 0.3 mg IM Q4H PRN multivitamin 1 tab PO DAILY rivaroxaban (Xarelto) 20 mg PO DAILY HPI Comments Details: Abby comes for follow-up. She has decided that she will be moving close to her daughter in [place]. She has no new cardiac symptoms. She continues to take all her medications. No bleeding issues or neurologic events. Due to a lot of excitement and stress she had slightly elevated heart rate this morning. Denies any worsening shortness of breath, orthopnea, PND and denies any lightheadedness, syncope. Blood pressures been well controlled. Uses CPAP regularly. He is very strongly interested in losing weight and wants to consider GLP 1 antagonist. [facility] Medical History History of torn meniscus of left knee History of kidney stones HTN (hypertension) Afib Sick sinus syndrome Cholecystectomy planned At high risk for breast cancer Family history of breast cancer Paroxysmal A-fib Surgical History H/O left knee surgery H/O colonoscopy H/O bilateral mastectomy History of cholecystectomy History of shoulder surgery History of surgery History of breast biopsy H/O section Family History Sister Colon cancer Mother Colon cancer HTN (hypertension) Father Sister Breast cancer Heart failure Sister Breast cancer Brother No problems noted. Brother No problems noted. Brother No problems noted. Daughter No problems noted. Social History Household Members: None Housing: House Are you a primary assistant child care teacher to a significant other at home: No Do you presently have visiting nurse or other home services: No Alcohol intake: former Patient Tobacco Use Status: Former Tobacco user e-Cigarette/Vaping Use: Never Used Second Hand Smoke Exposure: No service: No Current occupational status: retired Current occupation: Right hand dominate Current occupational exposures/hazards: No Cognitive needs: No Hearing needs: No Vision needs: Yes (Glasses) Review of Systems Const Denies chills, Denies fatigue, Denies fever(s), Denies frequent falls, Denies weakness, Denies weight gain and Denies weight loss ENT Denies dizziness Card Denies chest pain, Denies leg edema, Denies lightheadedness, Denies palpitations, Denies dyspnea, Denies dyspnea on exertion, Denies orthopnea and Denies other (loss of consciousness) Resp Denies cough, Denies dyspnea and Denies dyspnea on exertion GI Denies hematochezia and Denies change in stool character Musc Denies abnormal gait, Denies muscle weakness, Denies numbness, Denies radiating pain into limb and Denies tingling Neuro Denies abnormal gait, Denies dizziness, Denies frequent falls, Denies numbness, Denies tingling and Denies weakness Endo Denies fatigue and Denies palpitations Physical Exam Vital Signs: Last Vital Signs Pulse 95 09/28/24 13:54 BP 128/76 09/28/24 13:54 BMI result Body Mass Index 46.2 Const General: cooperative, healthy appearing, comfortable and no acute distress Neck Neck: Yes trachea midline, Yes supple and Yes no JVD Resp Effort & Inspection: normal respiratory effort Auscultation: clear to auscultation bilaterally, no crackles, no rales, no rhonchi and no wheezes Cardio Rate: regular rate Rhythm: abnormal rhythm irregularly irregular Heart sounds: S1 normal heart sound present, S2 normal heart sound present, no gallops, no murmurs and no rubs GI Inspection: Yes normal to inspection Extrem General: Yes normal to inspection Psych Appearance: grossly normal Mental Status: mental status grossly normal Office Procedures EKG Details: EKG shows atrial fibrillation with rightward axis with nonspecific ST changes [id number], Complete Assessment & Plan Assessment & Plan (1) Afib: Comment: status post cardioversion 07/26/2021. Maintain rhythm on flecainide 150 mg b.i.d. since then Code(s): I48.91 - Unspecified atrial fibrillation Category: Medical Qualifiers: Atrial fibrillation type: unspecified Qualified Code(s): I48.91 - Unspecified atrial fibrillation Plan: Chronic persistent atrial fibrillation this elderly woman who has failed rhythm control approach despite antiarrhythmic drug therapy without any new symptoms. No signs or symptoms of heart failure. At this point time continue with rate control approach. Continue Cardizem therapy. Rate is adequately controlled. Continue full oral anticoagulation, currently on Xarelto 20 mg daily. Semi annual renal function test should be pursued. She is going to move out of state and she is going to seek urgent care closer to home in either [place] or [place]. Will provide her with all the records. Signs and symptoms of heart failure was discussed. Continue CPAP therapy. I think she will benefit from aggressive weight loss program including with medical therapy. CHADSVASc score of 3. (2) Essential hypertension: Code(s): I10 - Essential (primary) hypertension Category: Medical Plan: Hypertension which is currently well optimized advised to monitor blood pressure at home maintain a log. Goal blood pressure less than 130/84. Continue Cardizem therapy. Continue CPAP therapy. Continue participate in aggressive weight loss program. Low-salt diet was discussed. Will follow up in the clinic if need be. Thank you for allowing me to partake in his care Coding Level of Care Code Est Pt Level 4 (58490) Complex EM visit Add On G2211 Diagnoses Atrial fibrillation, unspecified type I48.91 Atrial fibrillation type: unspecified Essential hypertension I10 CPT Codes EKG - CPT: 05994-Jlrydephqchprnfpa, Complete ([id number])
--- OUTSIDE RECORDS SUMMARY | 2024-09-28 16:34 | XMS_ITS ---
Author Organization [facility] Address [address] [place] [id number] Care Team Providers Care Tool Straightener Name Role Phone He Mei Primary Care Provider UnavailMiguel Traylor Unavailable [phone] ALLERGIES Allergen (clinical drug ingredient) Drug/Non Drug Allergy documented on EMR Reaction Allergy Type Onset Date Status tramadol Tramadol Unknown Drug Allergy Active oxycodone Oxycodone Unknown Drug Allergy Active Bee Sting Unknown Allergy Active meperidine Demerol Unknown Drug Allergy Active REASON FOR VISIT Patient presents today for a recall colonoscopy MEDICATIONS Medication SIG (Take, Route, Frequency, Duration) Notes Start Date End Date Status buPROPion HCl 75 MG TAKE ONE TABLET BY M OUTH TWICE A DAY Oral for 90 Active Xarelto 20 MG Oral for 90 Acti ve Atorvastatin Calcium 10 MG TAKE ONE TABL ET BY MOUTH EVERY DAY Oral Once a day Active Cardizem CD 180 MG 1 capsule Orally Onc e a day for 30 day(s) Active SOCIAL HISTORY Sex Assigned At : Social History Observation Description Sex Assigned At Unknown Alcohol Screen Question Answer Notes Did you have a drink containing alcohol in the p ast year? No Points 0 Interpretation Negative PROBLEMS Problem Type ICD Code Onset Dates Problem Status W/U Status Risk SNOMED Code Notes Problem intermediate current use of anticoagulant (Z79.01) Active confirmed [id number] VITAL SIGNS BMI 42.86 kg/m2 07/16/2023 Blood pressure systolic 00 mm Hg 07/16/20 23 Blood pressure diastolic 00 mm Hg 023 Height 68.25 in 07/16/2023 Temperature 96.9 degrees Fahrenheit 07/16/20 23 Weight 284 lbs 07/16/2023 Encounters Encounter Location Date Provider Diagnosis [facility] [address] [place] [address] 07/16/2023 Miguel Fisher History of adenomato us polyp of colon Z86.010 ; intermediate current use of anticoagulant Z79.01 ; Encounter for screening for malignant neoplasm of colon Z12.11 ; Family history of colon cancer Z80.0 and Preprocedural examination Z01.818 ASSESSMENTS Encounter Date Diagnosis Assessment Notes Treatment Notes Treatment Clinical Notes 07/16/2023 History of adenomatous polyp of colon (ICD-10 - Z86.010) Stop Xarelto for 3 days before the colonoscopy 07/16/2023 intermediate current use of anticoagulant (ICD-10 - Z79.01) 07/16/2023 Encounter for screening for malignant neoplasm of colon (ICD-10 - Z12.11) 07/16/2023 Family history of colon cancer (ICD-10 - Z80.0) 07/16/2023 Preprocedural examination (ICD-10 - Z01.818) PLAN OF TREATMENT Treatment Notes Assessment Notes History of adenomatous polyp of colon St op Xarelto for 3 days before the colonoscopy Future Test Test Name Order Date COLONOSCOPY 07/16/2023 Next Appt Details Follow Up: prn, Reason: Progress Notes * Examination Category Sub-Category Detail Notes General Examination GENERAL APPEARANCE: pleasant , well nourished, well developed, in no acute distress EYES: sclera non-icteric NECK/THYROID: no cervical lymphade nopathy, neck supple HEART: S1, S2 normal LUNGS: clear to auscultatio n bilaterally ABDOMEN: normal bowel sounds, no guarding or rigidity, no hepatosplenomegaly, no masses palpable, soft, nontender, nondistended. NEUROLOGIC: alert and oriented SKIN: nonjaundiced, no spi dillon angiomata. EXTREMITIES: no edema BACK: ORAL CAVITY: mucosa moist
--- OUTSIDE RECORDS SUMMARY | 2024-09-28 16:35 | XMS_ITS | Patient Health Record ---
Author Organization [facility] Address [address] [place] [address] Care Team Providers Care Powder Guard Name Role Phone He Mei Primary Care Provider UnavailMiguel Traylor Unavailable [phone] ALLERGIES Allergen (clinical drug ingredient) Drug/Non Drug Allergy documented on EMR Reaction Allergy Type Onset Date Status tramadol Tramadol Unknown Drug Allergy Active oxycodone Oxycodone Unknown Drug Allergy Active Bee Sting Unknown Allergy Active meperidine Demerol Unknown Drug Allergy Active RESULTS Component Value Reference Range Notes Pathology (Not yet reviewed by provider) Interpretation: Performing Lab:[facility], [address] [place] [id number] Notes/Report: REASON FOR REFERRAL No Information MEDICATIONS Medication SIG (Take, Route, Frequency, Duration) [...] W/U Status Risk SNOMED Code Notes Problem Encounter for screening for malignant neoplasm of colon (Z12.11) Active confirmed [id number] Problem History of adenomatous polyp of colon (Z86.010) Active confirmed 655456879 Problem Diverticulosis of large intestine without perforation or abscess without bleeding (K57.30) Active confirmed Diverticul ar disease of colon (220106183) Problem Preprocedural examination (Z01.818) Active confirmed 559820412 Problem Family history of colon cancer (Z80.0) Active confirmed 474333627 Problem Flank pain (R10.9) Active confirmed 247 275468 Problem snf current use of anticoagulant (Z79.01) Active confirmed 363551052 Encounters Encounter Location Date Provider Diagnosis [facility] Outpatient [address] [place] [phone] 10/07/2023 Miguel Fisher Encounter for scre ening colonoscopy Z12.11 ; Colon polyps K63.5 ; Family history of colon cancer Z80.0 ; Diverticulosis of large intestine without perforation or abscess without bleeding K57.30 and Other hemorrhoids K64.8 ASSESSMENTS Encounter Date Diagnosis Assessment Notes Treatment Notes Treatment Clinical Notes 10/07/2023 Encounter for screening colonoscopy (ICD-10 - Z12.11) 10/07/2023 Colon polyps (ICD-10 - K63.5) 10/07/2023 Family history of colon cancer (ICD-10 - Z80.0) 10/07/2023 Diverticulosis of large intestine without perforation or abscess without bleeding (ICD-10 - K57.30) 10/07/2023 Other hemorrhoids (ICD-10 - K64.8) PLAN OF TREATMENT Pending Test Test Name Order Date Pathology 10/07/2023 Future Test Test Name Order Date COLONOSCOPY 10/31/2011 COLONOSCOPY 07/25/2017 COLONOSCOPY 07/16/2023 Insurance Providers Payer Name Payer Address Payer Phone Subscriber Number Group Number Insured Name Patient Relationship to Insured Coverage Start Date Coverage End Date MEDICARE OF [place] [address] [facility] [place] [address] [id number] GRACIELA SWANSON Self - patient is the insured [employer] ATT[employer] CLAIMS [address] [place] [address] [id number] GRACIELA SWANSON Self - patient is the insured MEDICAL (GENERAL) HISTORY Medical History History ICD Code Colon polyps--large tubular adenoma removed in 2000--F/U colonoscopies revealed small tubular adenomas--most recent was in 06/2012--1 small tubular adenoma and diverticulosis Sleep apnea, uses a CPAP machine Denies UT,DM,CVA,Lung disease,renal dise ase Hx of B-wye-hfsucqkhlmbwy-sees Dr. Rios Kidney stones Hypertension Breast cancer-as below-left breast-bilat eral mastectomy Negative colonoscopy in 2018 Surgical History Surgery Date(Month/Year) [facility] Left and right breast surgeries--benign disease [id number] Shoulder surgery 2021 Mastectomy bilateral 05/2023
== END 2024-09-28 14:27 | disposition home or self-care (01) ==
PROVIDERS: PCP Family Medicine; Visit Provider Internal Medicine Cardiovascular Disease
DX: I48.91 Unspecified atrial fibrillation (principal); I10 Essential (primary) hypertension
CPT/HCPCS: 93010; 99214; G2211

== ENCOUNTER → 2024-09-28 13:35 | Outpatient (BNVA) | payer MEDICARE, SELFPAY | PROVIDERS: PCP Family Medicine; Visit Provider Internal Medicine Cardiovascular Disease | DX: I48.91 Unspecified atrial fibrillation (principal); I10 Essential (primary) hypertension; R94.31 Abnormal electrocardiogram [ECG] [EKG] | CPT/HCPCS: 93005; 99212 ==

== ENCOUNTER 2024-11-19 09:51 | Outpatient (AMB) | payer MEDICARE, SELFPAY ==
[2024-11-19 09:58] VITALS: PULSE 95; O2SAT 97
--- NOTE | 2024-11-19 09:58 | A.OFFVIS_ITS ---
Vital Signs 11/19/24 09:58 Height 5 ft 7 in Weight 30 lb BMI 4.7 Pulse 95 Pulse Source Pulse Oximeter Pulse Oximetry (%) 97 Oxygen Delivery Method Room Air Intake Visit Reasons: 1 yr f/u Intake Note: Patient presents for follow up GINETTE. compliance from 11/11/2024 scanned. Allergies oxycodone Allergy (Severe, Verified 11/19/24 09:59) Hives tramadol Allergy (Severe, Verified 11/19/24 09:59) Hives meperidine [From DEMEROL] Allergy (Intermediate, Verified 11/19/24 09:59) RASH bee venom protein (honey bee) Allergy (Mild, Verified 11/19/24 09:59) Swelling HPI Comments Details: 69-yr-old female presents for new in-person patient visit for follow up of GINETTE on CPAP. The PSG sleep study result was significant for severe degree of sleep apnea. The AHI was 56/hr and oxygen brooks was 84%. Pt is on CPAP at 92gbA7V. Compliance data - 90days 08/09-11/10 100% usage Average hrs 7 hrs 30 min Pressure 13 cm AHI 2.8 /hr Pt reports she sleeps well with CPAP, rested and her sleep quality has improved. Also daytime sleepiness has improved, a lot. 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[employer] [facility] Medical History History of torn meniscus of left knee History of kidney stones HTN (hypertension) Afib Sick sinus syndrome Cholecystectomy planned At high risk for breast cancer Family history of breast cancer Paroxysmal A-fib Surgical History H/O left knee surgery H/O colonoscopy H/O bilateral mastectomy History of cholecystectomy History of shoulder surgery History of surgery History of breast biopsy H/O section Family History Sister Colon cancer Mother Colon cancer HTN (hypertension) Father Sister Breast cancer Heart failure Sister Breast cancer Brother No problems noted. Brother No problems noted. Brother No problems noted. Daughter No problems noted. Social History Household Members: None Housing: House Are you a primary healthcare receptionist to a significant other at home: No Do you presently have visiting nurse or other home services: No Alcohol intake: former Patient Tobacco Use Status: Former Tobacco user e-Cigarette/Vaping Use: Never Used Second Hand Smoke Exposure: No service: No Current occupational status: retired Current occupation: Right hand dominate Current occupational exposures/hazards: No Cognitive needs: No Hearing needs: No Vision needs: Yes (Glasses) Physical Exam Vital Signs: Last Vital Signs Pulse 95 11/19/24 09:58 Pulse Ox 97 11/19/24 09:58 Oxygen Delivery Method Room Air 11/19/24 09:58 BMI result Body Mass Index 4.7 Const General: no acute distress Orientation/consciousness: patient oriented x3 HEENT Other: Mallampati stage 4 Resp Effort & Inspection: normal respiratory effort and able to speak in complete sentences Cardio Rate: regular rate Rhythm: regular rhythm Neuro General: patient oriented x3 Psych Mental Status: mental status grossly normal Speech and movement: Clear speech present Attitude: cooperative Assessment & Plan Assessment & Plan (1) Severe obstructive sleep apnea: Comment: The AHI was 56/hr and oxygen brooks was 84%. Code(s): G47.33 - Obstructive sleep apnea (adult) (pediatric) Category: Medical Plan Advised patient to continue to use CPAP at 88hkX9C as patient experiences good clinical effects, sleep breathing disorder has treated, having good quality sleep with daytime sleepiness has resolved. Stressed CPAP compliance, use CPAP nightly and more than 4 hrs. Wt reduction advised. Patient is planning to move to [place] - she will contact [facility] [employer] [facility] to transfer services. Coding Level of Care Code Est Pt Level 4 (53502) Diagnoses Severe obstructive sleep apnea G47.33
--- OUTSIDE RECORDS SUMMARY | 2024-11-19 11:22 | XMS_ITS ---
Author Organization [facility] Address [address] [place] [address] Care Team Providers Care Environmental Construction Engineer Name Role Phone Sigifredo He Primary Care Provider UnavailMiguel Traylor Unavailable [phone] Allergies Allergen (clinical drug ingredient) Drug/Non Drug Allergy documented on EMR Reaction Allergy Type Onset Date Status tramadol Tramadol Unknown Drug Allergy Active oxycodone Oxycodone Unknown Drug Allergy Active Bee Sting Unknown Allergy Active meperidine Demerol Unknown Drug Allergy Active REASON FOR VISIT Patient presents today for a recall colonoscopy Medications Medication SIG (Take, Route, Frequency, Duration) Notes [...] e a day for 30 day(s) Active Social History Alcohol Screen Question Answer Notes Did you have a drink containing alcohol in the p ast year? No Points 0 Interpretation Negative Section Notes: Nonsmoker, no sig. alcohol Problems Problem Type SNOMED Code ICD Code Onset Dates Problem Status W/U Status Risk Notes Problem 708442857 intermediate curren t use of anticoagulant (Z79.01) Active confirmed Vital Signs Temperature 96.9 degrees Fahrenheit 07/16/20 23 Blood pressure systolic 00 mm Hg 07/16/20 23 Blood pressure diastolic 00 mm Hg 023 Height 68.25 in 07/16/2023 Weight 284 lbs 07/16/2023 BMI 42.86 kg/m2 07/16/2023 Encounters Encounter Location Date Provider Diagnosis [facility] [address] [place] [address] 07/16/2023 Miguel Fisher History of adenomato us polyp of colon Z86.010 ; intermediate current use of anticoagulant Z79.01 ; Encounter for screening for malignant neoplasm of colon Z12.11 ; Family history of colon cancer Z80.0 and Preprocedural examination Z01.818 Assessments Encounter Date Diagnosis (ICD Code) Assessment Notes Treatment Notes Treatment Clinical Notes Section Notes 07/16/2023 History of adenomatous polyp of colon (ICD-10 - Z86.010) Stop Xarelto for 3 days before the colonoscopy Overall, Aliyah appears well. I did recommend a followup colonoscopy for further screening purposes given her personal history of tubular adenomas, significant family history of colorectal cancer, and her last colonoscopy being over 5 years ago. We did review the rationale for this in regard to colon cancer prevention. Full consent was obtained for this, including risks of bleeding and perforation. The procedure will be done with monitored anesthesia care. She was given the below instructions regarding adjustment of her medication for the procedure. She will be seen by her gettering operator, Dr. Rios, in early August as well. Aliyah was comfortable with this plan. Thank you again for allowing me to participate in Aliyah's care. I shall continue to keep you advised of her progress. 07/16/2023 intermediate current use of anticoagulant (ICD-10 - Z79.01) Overall, Aliyah appears well. I did recommend a followup colonoscopy for further screening purposes given her personal history of tubular adenomas, significant family history of colorectal cancer, and her last colonoscopy being over 5 years ago. We did review the rationale for this in regard to colon cancer prevention. Full consent was obtained for this, including risks of bleeding and perforation. The procedure will be done with monitored anesthesia care. She was given the below instructions regarding adjustment of her medication for the procedure. She will be seen by her gettering operator, Dr. Rios, in early August as well. Aliyah was comfortable with this plan. Thank you again for allowing me to participate in Aliyah's care. I shall continue to keep you advised of her progress. 07/16/2023 Encounter for screening for malignant neoplasm of colon (ICD-10 - Z12.11) Overall, Aliyah appears well. I did recommend a followup colonoscopy for further screening purposes given her personal history of tubular adenomas, significant family history of colorectal cancer, and her last colonoscopy being over 5 years ago. We did review the rationale for this in regard to colon cancer prevention. Full consent was obtained for this, including risks of bleeding and perforation. The procedure will be done with monitored anesthesia care. She was given the below instructions regarding adjustment of her medication for the procedure. She will be seen by her gettering operator, Dr. Rios, in early August as well. Aliyah was comfortable with this plan. Thank you again for allowing me to participate in Aliyah's care. I shall continue to keep you advised of her progress. 07/16/2023 Family history of colon cancer (ICD-10 - Z80.0) Overall, Aliyah appears well. I did recommend a followup colonoscopy for further screening purposes given her personal history of tubular adenomas, significant family history of colorectal cancer, and her last colonoscopy being over 5 years ago. We did review the rationale for this in regard to colon cancer prevention. Full consent was obtained for this, including risks of bleeding and perforation. The procedure will be done with monitored anesthesia care. She was given the below instructions regarding adjustment of her medication for the procedure. She will be seen by her gettering operator, Dr. Rios, in early August as well. Aliyah was comfortable with this plan. Thank you again for allowing me to participate in Aliyah's care. I shall continue to keep you advised of her progress. 07/16/2023 Preprocedural examination (ICD-10 - Z01.818) Overall, Aliyah appears well. I did recommend a followup colonoscopy for further screening purposes given her personal history of tubular adenomas, significant family history of colorectal cancer, and her last colonoscopy being over 5 years ago. We did review the rationale for this in regard to colon cancer prevention. Full consent was obtained for this, including risks of bleeding and perforation. The procedure will be done with monitored anesthesia care. She was given the below instructions regarding adjustment of her medication for the procedure. She will be seen by her gettering operator, Dr. Rios, in early August as well. Aliyah was comfortable with this plan. Thank you again for allowing me to participate in Aliyah's care. I shall continue to keep you advised of her progress. Plan Of Treatment Treatment Notes Assessment Notes History of adenomatous polyp of colon St op Xarelto for 3 days before the colonoscopy Future Test Test Name Order Date COLONOSCOPY 07/16/2023 Next Appt Details Follow Up: prn, Reason: Progress Notes * GRACIELA SWANSON RDOB:[birth year] (67 yo F)Acc No.[id number]:07/16/2023 Progress Notes Patient:?GRACIELA SWANSON Provider:?Miguel Fisher MD :1955???Age:67 Y???Sex:Female D ate:07/16/2023 Address:[address] [place] [address] [id number] Pcp:He Mei Subjective: * Chief Complaints: * ???Patient presents today fo r a recall colonoscopy * HPI: ???incontinence:? I saw Aliyah in followup today in regard to her personal history of tubular adenomas of the colon, family history of colon cancer, and discussion of colorectal cancer screening. ?I last saw Aliyah in September of 2017, at which time she underwent a negative screening colonoscopy. She presently feels well. She is recuperating from a bilateral mastectomy in May for a left-sided breast cancer. She enjoys a good appetite, without any significant heartburn nor dysphagia. Her bowel movements have been regular, without any hematochezia nor melena. She denies abdominal pain, jaundice, nor weight loss. She has a family history notable for her mother having of colon cancer in her 50s and a sister having had colon cancer in her 30s. * ROS:?General/Constitutional:?Change in appetite?denies.?Chills?denies.?Fatigue?denies.?Ophthalmologic:?Patient denies? Negative..?ENT:?Patient denies?Negative..?Respiratory:?Patient denies?No coughing/hemoptysis..?Cardiovascular:?Patient denies? No chest pain/orthopnea..?Gastrointestinal:?Comments?See HPI for details.?Genitourinary:?Patient denies? No dysuria/hematuria..?Musculoskeletal:?Patient denies? No specific arthralgias/myalgias..?Skin:?Patient denies?No rash/pruritus..?Neurologic:?Patient denies? No headaches/seizures..?Psychiatric:?Patient denies?Negative..? * Medical History:? * Surgical History:?CCY C-sect ion Left and right breast surgeries--benign disease 2006-2008Shoulder surgery 2021Mastectomy bilateral 05/2023 * Hospitalization/Major Diagno stic Procedure:? * Family History:?Father: dece ased.?Mother: , Age 55 - from colon cancer, diagnosed with HTN (hypertension), Colon cancer.?Siblings: alive, sister--colon cancer at age 38--alive, diagnosed with Colon cancer, Heart disease.? Second sister with breast cancer 2014. * Social History:?Tobacco Use:?Tobacco Use/Smoking?Are you a: former smoker , How long has it been since you last smoked?: > 10 years.?Drugs/Alcohol:?Alcohol Screen?Did you have a drink containing alcohol in the past year??No,?Points?0,?Interpretation?Negative.?Miscellaneous:?Marital status: . 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 ???Nonsmoker, no sig. alcohol. * Medications:?TakingCardizem CD 180 MG Capsule Extended Release 24 Hour 1 capsule Orally Once a dayAtorvastatin Calcium 10 MG Tablet TAKE ONE TABLET BY MOUTH EVERY DAY Oral Once a dayXarelto 20 MG Tablet Oral buPROPion HCl 75 MG Tablet TAKE ONE TABLET BY MOUTH TWICE A DAY Oral Taking Cardizem CD 180 MG Capsule Extended Release 24 Hour 1 capsule Orally Once a dayTaking Atorvastatin Calcium 10 MG Tablet TAKE ONE TABLET BY MOUTH EVERY DAY Oral Once a dayTaking Xarelto 20 MG Tablet Oral Taking buPROPion HCl 75 MG Tablet TAKE ONE TABLET BY MOUTH TWICE A DAY Oral DiscontinuedCardizem 120 MG Tablet 1 tablet before meals Orally Three times a daydilTIAZem HCl ER Coated Beads 120 MG Capsule Extended Release 24 Hour TAKE ONE CAPSULE BY MOUTH EVERY DAY Oral LORazepam 0.5 MG Tablet 1 tablet as needed Oral Once a day/PRNAspirin Adult Low Strength 81 MG Tablet Delayed Release 1 tablet Orally Once a dayFlecainide Acetate 100 MG Tablet Orally BIDMedication List reviewed and reconciled with the patientDiscontinued Cardizem 120 MG Tablet 1 tablet before meals Orally Three times a dayDiscontinued dilTIAZem HCl ER Coated Beads 120 MG Capsule Extended Release 24 Hour TAKE ONE CAPSULE BY MOUTH EVERY DAY Oral Discontinued LORazepam 0.5 MG Tablet 1 tablet as needed Oral Once a day/PRNDiscontinued Aspirin Adult Low Strength 81 MG Tablet Delayed Release 1 tablet Orally Once a dayDiscontinued Flecainide Acetate 100 MG Tablet Orally BIDMedication List reviewed and reconciled with the patient * Allergies:?OxycodoneTramadol Laura Gorman[Allergies Verified] Objective: * Vitals:?Wt: 284 lbs, Ht: 68. 25 in, BMI:42.86 Index, BP: 00/00 mm Hg, Temp: 96.9. * Examination: ???General Examination: ?GENERAL APPEARANCE:?pleasant, well nourished, well developed, in no acute distress .?EYES:?sclera non-icteric .?ORAL CAVITY:?mucosa moist .?NECK/THYROID:?no cervical lymphadenopathy, neck supple .?SKIN:?nonjaundiced, no spider angiomata. .?HEART:?S1, S2 normal .?LUNGS:?clear to auscultation bilaterally .?ABDOMEN:?normal bowel sounds, no guarding or rigidity, no hepatosplenomegaly, no masses palpable, soft, nontender, nondistended. .?EXTREMITIES:?no edema .?NEUROLOGIC:?alert and oriented .? Assessment: * Assessment: 1.?ad terminal makeup operator current use of anticoagulant - Z79.01 (Primary)?2.?History of adenomatous polyp of colon - Z86.010?3.?Encounter for screening for malignant neoplasm of colon - Z12.11?4.?Family history of colon cancer - Z80.0?5.?Preprocedural examination - Z01.818? Overall, Aliyah appears well. I did recommend a followup colonoscopy for further screening purposes given her personal history of tubular adenomas, significant family history of colorectal cancer, and her last colonoscopy being over 5 years ago. We did review the rationale for this in regard to colon cancer prevention. Full consent was obtained for this, including risks of bleeding and perforation. The procedure will be done with monitored anesthesia care. She was given the below instructions regarding adjustment of her medication for the procedure. She will be seen by her gettering operator, Dr. Rios, in early August as well. Aliyah was comfortable with this plan. Thank you again for allowing me to participate in Aliyah's care. I shall continue to keep you advised of her progress. Plan: * Treatment: Notes: Stop Xarelto for 3 days before the colonoscopy.??2.?Encounter for screening for malignant neoplasm of colon?Procedure: COLONOSCOPY (Ordered for 07/16/2023)* with MACsched for 10/07/23 at 9:40 ammiralax 3.?Family history of colon cancer?Procedure: COLONOSCOPY (Ordered for 07/16/2023)* with MACsched for 10/07/23 at 9:40 ammiralax * Procedure Codes:?3017F COLOR ECTAL CA SCREEN DOC [id number] TOBACCO NON-[id number] BP SCR NOT PRFRM REC REASON NOS * Preventive Medicine:? ??Counseling:?Care goal follow-up plan:?Above Normal BMI Follow-up?Giving encouragement to exercise,?BMI management provided?Yes.? * Follow Up:?prn * * Sign off status: Completed true * Provider:?Miguel Fisher MD Date:? 023 Generated for Maycol saleem/Saurabh/María Elenaitting on:?11/19/2024 11:21 AM EST History and Physical Notes * HPI (History of Present Illness) Category Sub-Category Detail Notes Category Not es incontinence I saw Aliyah in followup today in regard to her personal history of tubular adenomas of the colon, family history of colon cancer, and discussion of colorectal cancer screening. I last saw Aliyah in September of 2017, at which time she underwent a negative screening colonoscopy. She presently feels well. She is recuperating from a bilateral mastectomy in May for a left-sided breast cancer. She enjoys a good appetite, without any significant heartburn nor dysphagia. Her bowel movements have been regular, without any hematochezia nor melena. She denies abdominal pain, jaundice, nor weight loss. She has a family history notable for her mother having of colon cancer in her 50s and a sister having had colon cancer in her 30s. Examination Category Sub-Category Detail Notes Category Not es General Examination GENERAL APPEARANCE: pleasant , well [...]
--- OUTSIDE RECORDS SUMMARY | 2024-11-19 11:22 | XMS_ITS ---
Author Organization [facility] Address [address] [place] [address] Care Team Providers Care Bi Developer Name Role Phone He Mei Primary Care Provider Unavailab Miguel Magdaleno Unavailable [phone] REASON FOR VISIT screening, hx polyps,fam hx colon ca Problems Problem Type SNOMED Code ICD Code Onset Dates Problem Status W/U Status Risk Notes Problem Diverticular disease of colon (794632473) Diverticulosis of large intestine without perforation or abscess without bleeding (K57.30) Active confirmed Encounters Encounter Location Date Provider Diagnosis [facility] Outpatient [address] [place] [phone] 10/07/2023 Miguel Fisher Encounter for scre ening colonoscopy Z12.11 ; Colon polyps K63.5 ; Family history of colon cancer Z80.0 ; Diverticulosis of large intestine without perforation or abscess without bleeding K57.30 and Other hemorrhoids K64.8 Assessments Encounter Date Diagnosis (ICD Code) Assessment Notes Treatment Notes Treatment Clinical Notes Section Notes 10/07/2023 Encounter for screening colonoscopy (ICD-10 - Z12.11) 10/07/2023 Colon polyps (ICD-10 - K63.5) 10/07/2023 Family history of colon cancer (ICD-10 - Z80.0) 10/07/2023 Diverticulosis of large intestine without perforation or abscess without bleeding (ICD-10 - K57.30) 10/07/2023 Other hemorrhoids (ICD-10 - K64.8) Plan Of Treatment No Information Progress Notes * GRACIELA SWANSON RDOB:[birth year] (69 yo F)Acc No.[id number]:10/07/2023 COLON WITH MAC Patient:GRACIELA VERDUGO Provider:?Miguel Fisher MD :1955???Age:68 Y???Sex:Female D ate:10/07/2023 Address:[address] [place], [place] [id number] Pcp:He Mei Subjective: * Chief Complaints: * ???1. Screening, hx polyps,f am hx colon ca. * Medical History:? Objective: * Vitals:? Assessment: * Assessment: 1.?Encounter for screening c olonoscopy - Z12.11 (Primary)???2.?Colon polyps - K63.5???3.?Family history of colon cancer - Z80.0???4.?Diverticulosis of large intestine without perforation or abscess without bleeding - K57.30???5.?Other hemorrhoids - K64.8??? Plan: * Treatment: * Procedure Codes:?11827 LESIO N REMOVAL COLONOSCOPY, Modifiers: PT , 0529F INTRVL 3+YRS PTS CLNSCP DOCD, 0528F RCMND FLW-UP 10 YRS DOCD, Modifiers: 1P * * The named appointment provid er may or may not be the originator of this progress note, and it is not deemed complete until electronically signed by the appointment provider. Sign off status: Pending * Provider:?Miguel Fisher MD Date:? 024 Generated for Maycol saleem/Saurabh/eTransmitting on:?11/19/2024 11:21 AM EST
--- OUTSIDE RECORDS SUMMARY | 2024-11-19 11:22 | XMS_ITS | Patient Health Record ---
Author Organization [facility] Address [address] [place] [address] Care Team Providers Care Pharmacy Grad Intern Name Role Phone He Mei Primary Care Provider UnavailMiguel Traylor Unavailable [phone] Allergies Allergen (clinical drug ingredient) Drug/Non Drug Allergy documented on EMR Reaction Allergy Type Onset Date Status tramadol Tramadol Unknown Drug Allergy Active oxycodone Oxycodone Unknown Drug Allergy Active Bee Sting Unknown Allergy Active meperidine Demerol Unknown Drug Allergy Active Reason For Referral No Information Medications Medication SIG (Take, Route, Frequency, Duration) [...] Negative Section Notes: Nonsmoker, no sig. alcohol Nonsmoker, no sig. alcohol Nonsmoker, no sig. alcohol Problems Problem Type SNOMED Code ICD Code Onset Dates Problem Status W/U Status Risk Notes Problem 202450921 Encounter for screening for malignant neoplasm of colon (Z12.11) Active confirmed Problem 907129426 History of adenomatous polyp of colon (Z86.010) Active confirmed Problem Diverticular disease of colon (761709723) Diverticulosis of large intestine without perforation or abscess without bleeding (K57.30) Active confirmed Problem 702888176 Preprocedural examination (Z01.818) Active confirmed Problem 316948337 Family history o f colon cancer (Z80.0) Active confirmed Problem 479614024 Flank pain (R10.9) Active confirmed Problem 061860458 correction curren t use of anticoagulant (Z79.01) Active confirmed Plan Of Treatment Pending Test Test Name Order Date Pathology 10/07/2023 Future Test Test Name Order Date COLONOSCOPY 10/31/2011 COLONOSCOPY 07/25/2017 COLONOSCOPY 07/16/2023 Insurance Providers Payer Name Payer Address Payer Phone Subscriber Number Group Number Insured Name Patient Relationship to Insured Coverage Start Date Coverage End Date MEDICARE OF [place] [address] [place] [address] [id number] GRACIELA SWANSON Self - patient is the insured [employer] ATT[employer] CLAIMS [address] [place] [address] [phone] [id number] GRACIELA SWANSON Self - patient is the insured Medical (General) History Medical History History ICD Code Colon polyps--large tubular adenoma removed in 2000--F/U colonoscopies revealed small tubular adenomas--most recent was in 06/2012--1 small tubular adenoma and diverticulosis Sleep apnea, uses a CPAP machine Denies [place],DM,CVA,Lung disease,renal dise ase Hx of H-lks-lylsslyhkpogg-sees Dr. Rios Kidney stones Hypertension Breast cancer-as below-left breast-bilat eral mastectomy Negative colonoscopy in 2018 Surgical History Surgery Date(Month/Year) [facility] Left and right breast surgeries--benign disease [id number] Shoulder surgery 2021 Mastectomy bilateral 05/2023
== END 2024-11-19 10:13 | disposition home or self-care (01) ==
PROVIDERS: Absent Provider Psychiatry & Neurology Neurology; Visit Provider Psychiatry & Neurology Neurology
DX: G47.33 Obstructive sleep apnea (adult) (pediatric) (principal)
CPT/HCPCS: 99214

== ENCOUNTER → 2024-11-19 09:51 | Outpatient (BNVA) | payer MEDICARE, SELFPAY | PROVIDERS: Absent Provider Psychiatry & Neurology Neurology; Visit Provider Psychiatry & Neurology Neurology | DX: G47.33 Obstructive sleep apnea (adult) (pediatric) (principal); Z99.89 Dependence on other enabling machines and devices | CPT/HCPCS: 99212 ==

== ENCOUNTER 2024-11-24 11:08 | Outpatient (AMB) | payer MEDICARE, SELFPAY ==
--- NOTE | 2024-11-24 11:16 | MHC.PC.OV ---
Vital Signs 11/24/24 11:32 BP 130/60 Blood Pressure Location Lt brachial Position Sitting Respiration 18 Pulse 95 Pulse Source Pulse Oximeter Pulse Oximetry (%) 98 Oxygen Delivery Method Room Air Intake Visit Reasons: 6 month f/u and Left heal pain Intake Note: Six month follow up. Left heal pain, couple months. Needs epi pen refilled. Soda Worker Required: No Allergies oxycodone Allergy (Severe, Verified 11/24/24 11:18) Hives tramadol Allergy (Severe, Verified 11/24/24 11:18) Hives meperidine [From DEMEROL] Allergy (Intermediate, Verified 11/24/24 11:18) RASH bee venom protein (honey bee) Allergy (Mild, Verified 11/24/24 11:18) Swelling Medication List - Last Reconciled 11/27/24 by Giana Leone MD atorvastatin 10 mg PO DAILY 90 days bupropion HCl 75 mg PO BID 90 days cholecalciferol (vitamin D3) 25 mcg PO DAILY diltiazem HCl CD (Cardizem CD) 180 mg PO DAILY epinephrine 0.3 mg IM Q4H PRN multivitamin 1 tab PO DAILY prednisone Take 2 tab oral once daily for 4 days, then take 1 tab oral once daily for 4 days rivaroxaban (Xarelto) 20 mg PO DAILY Tobacco use date assessed: 11/04/23 Fall risk assessment: No Falls in past year Last assessed Fall Risk: 11/24/24 Dental Screening Dental Screen Date: 05/23/23 HPI HPI Comments History of Present Illness Details 68 year old female with a past medical history of breast cancer, atrial fibrillation, hypertension,depression presenting for follow up. MSK: Has been suffering from left heel pain, pad of the heel. No injury. Worsens with standing, walking for awhile. Not more painful on first step. Had meniscal surgery in January 2024. Doing well Depression-bupropion 75mg twice daily. CV: Atrial fibrillation. Dr Rios. On diliazem, xarelto. She is currently holding her atorvastatin and plans to go back on a keto diet imminently ROS see HPI PHYSICAL EXAM: GENERAL: Alert and oriented x 3. NAD EYES: EOMI. Anicteric. HENT: Moist mucous membranes. No scleral icterus. No cervical lymphadenopathy. LUNGS: Clear to auscultation bilaterally. CARDIOVASCULAR: Regular rate and rhythm. ABDOMEN: Soft, non-tender +bs EXTREMITIES: No edema. Non-tender. SKIN: No rashes or lesions. Warm. NEUROLOGIC: No focal neurological deficits. CN II-XII grossly intact PSYCHIATRIC: Cooperative. Appropriate mood and affect [facility] Medical History History of torn meniscus of left knee History of kidney stones HTN (hypertension) Afib Sick sinus syndrome Cholecystectomy planned At high risk for breast cancer Family history of breast cancer Paroxysmal A-fib Surgical History H/O left knee surgery H/O colonoscopy H/O bilateral mastectomy History of cholecystectomy History of shoulder surgery History of surgery History of breast biopsy H/O section Family History Sister Colon cancer Mother Colon cancer HTN (hypertension) Father Sister Breast cancer Heart failure Sister Breast cancer Brother No problems noted. Brother No problems noted. Brother No problems noted. Daughter No problems noted. Social History Household Members: None Housing: House Are you a primary care partner to a significant other at home: No Do you presently have visiting nurse or other home services: No Alcohol intake: former Patient Tobacco Use Status: Former Tobacco user e-Cigarette/Vaping Use: Never Used Second Hand Smoke Exposure: No service: No Current occupational status: retired Current occupation: Right hand dominate Current occupational exposures/hazards: No Cognitive needs: No Hearing needs: No Vision needs: Yes (Glasses) Questionnaire PHQ-9 Over the last 2 weeks, how often have you been bothered by any of the following problems? 1. Little interest or pleasure in doing things: not at all 2. Feeling down, depressed, or hopeless: not at all 3. Trouble falling or staying asleep, or sleeping too much: not at all 4. Feeling tired or having little energy: not at all 5. Poor appetite or overeating: not at all 6. Feeling bad about yourself - or that you are a failure or have let yourself or your family down: not at all 7. Trouble concentrating on things, such as reading the newspaper or watching television: not at all 8. Moving or speaking so slowly that other people could have noticed. Or the opposite - being so fidgety or restless that you have been moving around a lot more than usual: not at all 9. Thoughts that you would be better off or of hurting yourself in some way: not at all Total score: 0 Depression Screening Interpretation: Negative Depression Screening Done: Yes 22247 - PHQ-9 Billing: Yes Source: Developed by Drs. Miguel Lynne, Romi Dominguez, Florentino Holcomb and colleagues, with an educational graham from [employer]. Thrive Questionnaire Date Thrive assessed: 11/17/24 I am a: Patient What is your living situation today?: I have a steady place to live Within the past 12 months, did the food you bought not last and you didn't have the money to get more?: Never true Within the past 12 months, did you worry whether your food would run out before you got money to buy more?: Never true Do you have trouble paying for medicines?: No Do you have trouble getting transportation to medical appointments?: No Do you have trouble paying your heating and electricity bill?: No Do you have trouble taking care of your child, family member or friend?: No Do you have trouble with day-to-day activities such as bathing, preparing meals, shopping, managing finances, etc.?: No Are you currently unemployed and looking for a job?: No Are you interested in more education?: No Please select the resources that you would like help with: None Currently or been in a relationship where the following occur: No concerns reported THRIVE Score: 0 AUDIT C Alcohol Use Questionnaire (AUDIT-C) 1. How often do you have a drink containing alcohol?: Never Total Score: 0 EVERETTE-7 AMB Questionnaire EVERETTE-7 Date EVERETTE - 7 assessed: 10/08/22 Feeling nervous, anxious, or on edge: 0 = Not at all Not being able to stop or control worryin = Not at all Worrying too much about different things: 0 = Not at all Trouble relaxin = Not at all Being so restless that it is hard to sit still: 0 = Not at all Becoming easily annoyed or irritable: 0 = Not at all Feeling afraid as if something awful might happen: 0 = Not at all Total EVERETTE-7 score (0-4 normal; 5-9 mild; 10-14 moderate; 15-21 severe): 0 Source: Developed by Drs. Miguel Lynne, Romi Dominguez, Florentino Holcomb and colleagues, with an educational graham from [employer]. Physical exam (Primary Care) Vital Signs: Last Vital Signs Pulse 95 11/24/24 11:32 Resp 18 11/24/24 11:32 BP 130/60 11/24/24 11:32 Pulse Ox 98 11/24/24 11:32 Oxygen Delivery Method Room Air 11/24/24 11:32 Tobacco/Smoking Status: Tobacco use Status Tobacco use date assessed 11/04/23 11/24/24 11:22 Patient Tobacco Use Status Former Tobacco user 11/24/24 11:22 e-Cigarette/Vaping Use Never Used 11/24/24 11:22 PHQ-9: PHQ-9 Score PHQ-9: Total score 0 11/27/24 22:29 Depression Screening Interpretation: Negative Thrive Assessment: Date of Thrive Assessment Date Thrive assessed 11/17/24 11/24/24 11:22 Currently or been in a relationship where the following occur: No concerns reported Coding Level of Care Code Est Pt Level 4 (66682) Diagnoses Pain of left heel M79.672 Additional Codes PHQ-9 - 17089 - PHQ-9 Billing: Yes ([id number]) Assessment & Plan Assessment & Plan (1) Pain of left heel: Code(s): M79.672 - Pain in left foot Category: Medical Plan: referral ortho-foot continue voltaren Short course oral prednisone Orders: Orders Complete Blood Count Auto Diff 11/24/24 E78.5 - Hyperlipidemia, unspecified, F41.8 - Other specified anxiety disorders, I48.19 - Other persistent atrial fibrillation, R73.01 - Impaired fasting glucose, R73.03 - Prediabetes Lipid Panel 11/24/24 E78.5 - Hyperlipidemia, unspecified, F41.8 - Other specified anxiety disorders, I48.19 - Other persistent atrial fibrillation, R73.01 - Impaired fasting glucose, R73.03 - Prediabetes Hemoglobin A1c 11/24/24 E78.5 - Hyperlipidemia, unspecified, F41.8 - Other specified anxiety disorders, I48.19 - Other persistent atrial fibrillation, R73.01 - Impaired fasting glucose, R73.03 - Prediabetes Comprehensive Met. Panel 11/24/24 E78.5 - Hyperlipidemia, unspecified, F41.8 - Other specified anxiety disorders, I48.19 - Other persistent atrial fibrillation, R73.01 - Impaired fasting glucose, R73.03 - Prediabetes TSH reflex Free T4 11/24/24 E78.5 - Hyperlipidemia, unspecified, F41.8 - Other specified anxiety disorders, I48.19 - Other persistent atrial fibrillation, R73.01 - Impaired fasting glucose, R73.03 - Prediabetes Referrals Orthopedics Referral M79.672 - Pain in left foot Medications: New prednisone Take 2 tab oral once daily for 4 days, then take 1 tab oral once daily for 4 days 12 tabs 0RF
[2024-11-24 11:32] VITALS: BP 130/60; PULSE 95; RESP 18; O2SAT 98
--- OUTSIDE RECORDS SUMMARY | 2024-11-24 13:48 | XMS_ITS ---
Author Organization [facility] Address [address] [place] [address] Care Team Providers Care Receivable Clerk Name Role Phone He Mei Primary Care Provider Unavailab Miguel Magdaleno Unavailable [phone] REASON FOR VISIT screening, hx polyps,fam hx colon ca Problems Problem Type SNOMED Code ICD Code Onset Dates Problem Status W/U Status Risk Notes Problem Diverticular disease of colon (836029043) Diverticulosis of large intestine without perforation or abscess without bleeding (K57.30) Active confirmed Encounters Encounter Location Date Provider [place] [facility] [address] [place] [phone] 10/07/2023 Miguel Fisher Encounter for scre ening [...] GRACIELA SWANSON RDOB:[birth year] (69 yo F)Acc No.[id number]:10/07/2023 COLON WITH MAC Patient:GRACIELA VERDUGO Provider:?Miguel Fisher MD :1955???Age:68 Y???Sex:Female D ate:10/07/2023 Address:[address] [place], [place] [id number] Pcp:He Mei Subjective: * Chief Complaints: * ???1. Screening, hx polyps,f am hx colon ca. * Medical History:? Objective: * Vitals:? Assessment: * Assessment: 1.?Encounter for screening c olonoscopy - Z12.11 (Primary)???2.?Colon polyps - K63.5???3.?Family history of colon cancer - Z80.0???4.?Diverticulosis of large intestine without perforation or abscess without bleeding - K57.30???5.?Other hemorrhoids - K64.8??? Plan: * Treatment: * Procedure Codes:?43421 LESIO N REMOVAL COLONOSCOPY, Modifiers: PT , [...] MD Date:? 024 Generated for Maycol saleem/Saurabh/eTransmitting on:?11/24/2024 01:46 PM EDT
--- OUTSIDE RECORDS SUMMARY | 2024-11-24 13:48 | XMS_ITS | Patient Health Record ---
Author Organization [facility] Address [address] [place] [address] Care Team Providers Care Supervisor Weaving Name Role Phone He Mei Primary Care Provider UnavailMiguel Traylor Unavailable [phone] Allergies Allergen (clinical drug ingredient) Drug/Non Drug [...] Problem Status W/U Status Risk Notes Problem [id number] Encounter for screening for malignant neoplasm of colon (Z12.11) Active confirmed Problem 162079452 History of adenomatous polyp of colon (Z86.010) Active confirmed Problem Diverticular disease of colon (285298807) Diverticulosis of large intestine without perforation or abscess without bleeding (K57.30) Active confirmed Problem 576288231 Preprocedural examination (Z01.818) Active confirmed Problem 644355986 Family history o f colon cancer (Z80.0) Active confirmed Problem 095190521 Flank pain (R10.9) Active confirmed Problem 431583767 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 (Z79.01) Active confirmed Plan Of Treatment Pending Test Test Name Order Date Pathology 10/07/2023 Future Test Test Name Order Date COLONOSCOPY 10/31/2011 COLONOSCOPY 07/25/2017 COLONOSCOPY 07/16/2023 Insurance Providers Payer Name Payer Address Payer Phone Subscriber Number Group Number Insured Name Patient Relationship to Insured Coverage Start Date Coverage End Date MEDICARE OF [place] [address] [place] [address] [id number] GRACIELA SWANSON Self - patient is the insured [employer] CLAIMS [address] [place] [address] [phone] [id number] GRACIELA SWANSON Self - patient is the insured Medical (General) History Medical History History ICD Code Colon polyps--large tubular adenoma removed in 2000--F/U colonoscopies revealed small tubular adenomas--most recent was in 06/2012--1 small tubular adenoma and diverticulosis Sleep apnea, uses a CPAP machine Denies PR,DM,CVA,Lung disease,renal dise ase Hx of J-ixt-zchcqprydxuew-sees Dr. Rios Kidney stones Hypertension Breast cancer-as below-left breast-bilat eral mastectomy Negative colonoscopy in 2018 Surgical History Surgery Date(Month/Year) [facility] Left and right breast surgeries--benign disease [id number] Shoulder surgery 2021 Mastectomy bilateral 05/2023
--- OUTSIDE RECORDS SUMMARY | 2024-11-24 13:48 | XMS_ITS ---
Author Organization [facility] Address [address] [place] [address] Care Team Providers Care Ice Skating Instructor Name Role Phone Sigifredo He Primary Care Provider UnavailMiguel Traylor Unavailable [phone] Allergies Allergen (clinical drug ingredient) Drug/Non Drug [...] Problem Status W/U Status Risk Notes Problem 532698258 prison curren t use of anticoagulant (Z79.01) Active confirmed Vital Signs Temperature 96.9 degrees Fahrenheit 07/16/20 23 Blood pressure systolic 00 mm Hg 07/16/20 23 Blood pressure diastolic 00 mm Hg 023 Height 68.25 in 07/16/2023 Weight 284 lbs 07/16/2023 BMI 42.86 kg/m2 07/16/2023 Encounters Encounter Location Date Provider Diagnosis [facility] [address] [place] [address] 07/16/2023 Miguel Fisher History of adenomato us polyp of colon Z86.010 ; sales representative education courses current use of anticoagulant Z79.01 ; Encounter [...] procedure. She will be seen by her rn obgyn, Dr. Rios, in early August as well. Aliyah was comfortable with this plan. Thank you again for allowing me to participate in Aliyah's care. I shall continue to keep you advised of her progress. 07/16/2023 prison current use of anticoagulant (ICD-10 - Z79.01) [...] procedure. She will be seen by her rn obgyn, Dr. Rios, in early August as well. [...] procedure. She will be seen by her rn obgyn, Dr. Rios, in early August as well. [...] procedure. She will be seen by her rn obgyn, Dr. Rios, in early August as well. [...] procedure. She will be seen by her rn obgyn, Dr. Rios, in early August as well. [...] GRACIELA SWANSON RDOB:[birth year] (67 yo F)Acc No.[id number]:07/16/2023 Progress Notes Patient:?GRACIELA SWANSON Provider:?Miguel Fisher MD :1955???Age:67 Y???Sex:Female D ate:07/16/2023 Address:[address] [place] [address] [id number] Pcp:He Mei Subjective: * Chief Complaints: * [...] in the past year??No,?Points?0,?Interpretation?Negative.?Miscellaneous:?Marital status: . 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 ???Nonsmoker, no [...] .?NEUROLOGIC:?alert and oriented .? Assessment: * Assessment: 1.?sales representative education courses current use of anticoagulant - Z79.01 (Primary)?2.?History [...] procedure. She will be seen by her rn obgyn, Dr. Rios, in early August as well. [...] Procedure Codes:?3017F COLOR ECTAL CA SCREEN DOC GAN5200D TOBACCO NON-[id number] BP SCR NOT PRFRM REC REASON NOS * Preventive Medicine:? ??Counseling:?Care goal follow-up plan:?Above Normal BMI Follow-up?Giving encouragement to exercise,?BMI management provided?Yes.? * Follow Up:?prn * * Sign off status: Completed true * Provider:?Miguel Fisher MD Date:? 023 Generated for Luisi stiven/Saurabh/María Elenaitting on:?11/24/2024 01:46 PM EDT History and Physical Notes * HPI (History [...]
== END 2024-11-24 11:56 | disposition home or self-care (01) ==
LOC: HO.HMCFM 11:09
PROVIDERS: PCP Family Medicine; Visit Provider Internal Medicine
DX: M79.672 Pain in left foot (principal)

== ENCOUNTER → 2024-11-24 11:08 | Outpatient (BNVA) | payer MEDICARE, SELFPAY | PROVIDERS: PCP Family Medicine; Visit Provider Internal Medicine | DX: M79.672 Pain in left foot (principal); I10 Essential (primary) hypertension; I48.91 Unspecified atrial fibrillation; F32.A Depression, unspecified; Z79.01 Long term (current) use of anticoagulants; Z79.899 Other long term (current) drug therapy | CPT/HCPCS: 96127; 99212 ==